=== PATIENT | female | born 1955 | race Caucasian/White ===

== ENCOUNTER 2020-11-04 11:19 | Outpatient (CLI) | payer OTHER, SELFPAY ==
--- NOTE | 2020-11-04 11:25 | MM_ITS ---
WS: [id number] BILATERAL SCREENING DIGITAL MAMMOGRAM WITH CAD HISTORY: HX OF LT BR CA COMPARISON: 02/01/2019 and 01/31/2018 Bilateral CC and MLO views submitted. Computer aided detection analyzed. Breast composition: The breasts are extremely dense, which lowers the sensitivity of mammography. No suspicious masses, microcalcifications or architectural distortion. Numerous calcifications and asymm etries throughout each breast. MM/[place] [id number] IMPRESSION: BI-RADS: 2-Benign FOLLOW UP: 1 Year Follow-up
== END 2020-11-04 11:20 | disposition home or self-care (01) ==
LOC: RADSHAW 11:23
PROVIDERS: PCP Family Medicine; Visit Provider Family Medicine
DX: Z85.3 Personal history of malignant neoplasm of breast (principal)
CPT/HCPCS: 77066

== ENCOUNTER 2020-11-20 07:50 | Outpatient (CLI) | payer OTHER, SELFPAY ==
--- NOTE | 2020-11-20 07:58 | US_ITS ---
WS: [id number] INDICATION: Cervical lymphadenopathy TECHNIQUE: Ultrasound neck soft tissue FINDINGS: Ultrasound soft tissue neck in the areas of concern. Bilateral cervical lymph nodes in the areas of concern. Lymph nodes have normal appearance and are not significantly enlarged. Normal prese rved fatty hilum. No other suspicious findings. US/US soft tissue head neck [id number] IMPRESSION: Normal bilateral cervical lymph nodes.
== END 2020-11-20 07:51 | disposition home or self-care (01) ==
LOC: US 07:51
PROVIDERS: PCP Family Medicine; Visit Provider Family Medicine
DX: R59.0 Localized enlarged lymph nodes (principal)
CPT/HCPCS: 76536

== ENCOUNTER 2021-01-27 10:38 | Outpatient (CLI) | payer OTHER, SELFPAY ==
--- NOTE | 2021-01-27 10:51 | XR_ITS ---
WS: [id number] Exam: XR elbow LT min 3V* [id number] Date/Time of Exam: 01/27/2021 10:51 AM Reason For Exam: LEFT ELBOW PAIN Findings: There are no fractures, soft tissue swelling, or calcifications. The elbow shows normal bony alignme nt. There is no irregularity of the bony architecture. XR/XR elbow LT min 3V* [id number] IMPRESSION: Negative elbow.
== END 2021-01-27 10:39 | disposition home or self-care (01) ==
LOC: RAD 10:44
PROVIDERS: PCP Family Medicine; Visit Provider Family Medicine
DX: M25.522 Pain in left elbow (principal)
CPT/HCPCS: 73080

== ENCOUNTER 2021-06-03 11:30 | Outpatient (RCR) | payer OTHER, SELFPAY | END 2021-06-04 23:59 | disposition home or self-care (01) | LOC: SOT 11:30 | PROVIDERS: PCP Family Medicine; Referring Provider Orthopaedic Surgery; Visit Provider Orthopaedic Surgery | DX: M77.12 Lateral epicondylitis, left elbow (principal) | CPT/HCPCS: 97110; 97165 ==

== ENCOUNTER 2021-06-05 06:00 | Outpatient (RCR) | payer OTHER, SELFPAY | END 2021-07-05 23:59 | disposition home or self-care (01) | LOC: SOT 06:00 | PROVIDERS: PCP Family Medicine; Referring Provider Orthopaedic Surgery; Visit Provider Orthopaedic Surgery | DX: M77.02 Medial epicondylitis, left elbow (principal) | CPT/HCPCS: 97034; 97035; 97110; 97140; 97530 ==

== ENCOUNTER 2021-07-06 06:00 | Outpatient (RCR) | payer OTHER, SELFPAY | END 2021-08-04 23:59 | disposition home or self-care (01) | LOC: SOT 06:00 | PROVIDERS: PCP Family Medicine; Referring Provider Orthopaedic Surgery; Visit Provider Orthopaedic Surgery | DX: M77.12 Lateral epicondylitis, left elbow (principal) | CPT/HCPCS: 97032; 97035; 97110; 97140; 97168 ==

== ENCOUNTER 2022-01-01 10:53 | Outpatient (CLI) | payer OTHER, SELFPAY ==
--- NOTE | 2022-01-01 11:05 | MM_ITS ---
WS: [id number] BILATERAL 3D TOMOSYNTHESIS DIGITAL DIAGNOSTIC MAMMOGRAPHY WITH CAD CLINICAL INFORMATION: HX OF BREAST CA HISTORY: History of Phylloides tumor. New lump LEFT breast. COMPARISON: November 04, 2020 TECHNIQUE: Bilateral CC, MLO, and ML views. FINDINGS: The breasts are composed of heterogeneous fibroglandular density, which can limit the detection of sm all underlying mass lesions. Punctate and lucent centered calcifications. Ovoid nodule deep to the pa lpable marker lower outer LEFT breast measuring 2.3 x 2.0 CM. Ultrasound is pending. ULTRASOUND BREAST LEFT TECHNIQUE: Ultrasound left breast focused area of concern. CLINICAL INFORMATION: HX OF BREAST CA FINDINGS: Solid hypoechoic lesion with vascularity at the 3:00 position 10 cm from the nipple corresponds to th e mammographic findings. Small amount of internal cystic change with marginal lobulations. This measu res 2.5 x 2.2 x 1.5 CM. Recommend further evaluation with ultrasound-guided biopsy. MM/[place] [id number] IMPRESSION: BI-RADS: 4-Suspicious Finding-Biopsy Should Be Considered FOLLOW UP: US Guided Biopsy Recommended Recommend ultrasound-guided biopsy nodule LEFT breast
--- NOTE | 2022-01-01 11:49 | US_ITS ---
WS: [id number] BILATERAL 3D TOMOSYNTHESIS DIGITAL DIAGNOSTIC MAMMOGRAPHY WITH CAD CLINICAL INFORMATION: HX OF BREAST CA HISTORY: History of Phylloides tumor. New lump LEFT breast. COMPARISON: November 04, 2020 TECHNIQUE: Bilateral CC, MLO, and ML views. FINDINGS: The breasts are composed of heterogeneous fibroglandular density, which can limit the detection of sm all underlying mass lesions. Punctate and lucent centered calcifications. Ovoid nodule deep to the pa lpable marker lower outer LEFT breast measuring 2.3 x 2.0 CM. Ultrasound is pending. ULTRASOUND BREAST LEFT TECHNIQUE: Ultrasound left breast focused area of concern. CLINICAL INFORMATION: HX OF BREAST CA FINDINGS: Solid hypoechoic lesion with vascularity at the 3:00 position 10 cm from the nipple corresponds to th e mammographic findings. Small amount of internal cystic change with marginal lobulations. This measu res 2.5 x 2.2 x 1.5 CM. Recommend further evaluation with ultrasound-guided biopsy. US/US breast LT limited* [id number] IMPRESSION: BI-RADS: 4-Suspicious Finding-Biopsy Should Be Considered FOLLOW UP: US Guided Biopsy Recommended Recommend ultrasound-guided biopsy nodule LEFT breast
== END 2022-01-01 10:54 | disposition home or self-care (01) ==
PROVIDERS: PCP Family Medicine; Visit Provider Family Medicine
DX: N63.20 Unspecified lump in the left breast, unspecified quadrant (principal); Z85.3 Personal history of malignant neoplasm of breast
CPT/HCPCS: 76642; 77062

== ENCOUNTER 2022-02-05 10:15 | Outpatient (CLI) | payer OTHER, SELFPAY ==
--- NOTE | 2022-02-05 10:19 | US_ITS ---
WS: [id number] ULTRASOUND-GUIDED LEFT BREAST BIOPSY CLINICAL INFORMATION: history of phyllodes tumore COMPARISON: None. FINDINGS: The procedure including risks, benefits, and complications were discussed with the patient who agreed to proceed. Using sterile technique patient was prepped and draped in the usual sterile fashion. Aft er 1% lidocaine utilizing real-time ultrasound guidance 5 14-gauge cores were obtained of the LEFT br east lesion at the 3 o'clock position 10 cm from the nipple. Subsequently a titanium clip was placed in the biopsy cavity. No immediate complications. Pathology demonstrates A. Breast, left breast mass , biopsy: - Poorly differentiated invasive ductal carcinoma. - Orantes Olivera grade 3 (score 8/9). - No evidence of in situ carcinoma (ductal or lobular). - Breast profile has been performed and will be reported separately. US/[place] [id number] IMPRESSION: 1. Uncomplicated ultrasound-guided LEFT breast biopsy. 2. The pathology demonstrates poorly differentiated invasive ductal carcinoma. 3. RECOMMEND BREAST SURGERY CONSULTATION. BI-RADS: 6-Known Biopsy-Proven Malignancy FOLLOW UP: Surgical Biopsy Recommended
[2022-02-11 10:00] LABS: Miscellaneous Test See Scanned Lab Rpt
== END 2022-02-05 10:16 | disposition home or self-care (01) ==
PROVIDERS: PCP Family Medicine; Visit Provider Surgery
DX: C50.912 Malignant neoplasm of unspecified site of left female breast (principal)
CPT/HCPCS: 19083; 88305; 88361; 88374

== ENCOUNTER 2022-02-24 11:57 | Oncology outpatient (recurring) (ONCR) | payer OTHER, SELFPAY | END 2022-03-04 23:59 | disposition home or self-care (01) | PROVIDERS: Absent Provider Radiology Radiation Oncology; PCP Family Medicine; Visit Provider Internal Medicine Hematology & Oncology | DX: C50.812 Malignant neoplasm of overlapping sites of left female breast (principal); Z17.0 Estrogen receptor positive status [ER+]; F32.A Depression, unspecified; E55.9 Vitamin D deficiency, unspecified; D50.9 Iron deficiency anemia, unspecified; D51.9 Vitamin B12 deficiency anemia, unspecified; Z79.899 Other long term (current) drug therapy ==

== ENCOUNTER 2022-03-22 07:29 | Day surgery (SDC) | payer OTHER, SELFPAY ==
[2022-03-19 10:07] VITALS: BMI 32.3
[2022-03-22] VITALS (8 sets, daily range): BP systolic 129–187; BP diastolic 73–99; PULSE 73–105; RESP 16–20; TEMP 36.1–37.1; O2SAT 92–99
--- NOTE | 2022-03-22 07:35 | W.PM.OPSFHP ---
Same Day Surgery H&P Indication for Procedure/HPI DATE OF PROCEDURE: March 22, 2022 CHIEF COMPLAINT/INDICATIONFOR SURGICAL PROCEDURE: left breast lumpectomy with SLNB PREOP DIAGNOSIS: Left breast cancer PLANNED PROCEDURE: Operation Date: 03/22/22 10:00 Proposed Procedures p left breast lumpectomy and sentinel lymph node biopsy [id number],C50.912,C50.919(Left) - Robbie Ge MD s Sentinal Lymph Node Biopsy(Left) - Robbie Ge MD Medications/Allergies* Home Medications Medication Instructions Recorded Confirmed Type citalopram 40 mg tablet 20 mg PO DAILY 12/23/20 03/19/22 History minocycline 50 mg capsule 50 mg PO BID 12/23/20 03/19/22 History mirtazapine 15 mg tablet 15 mg PO DAILY 12/23/20 03/19/22 History acetaminophen 650 mg 650 mg PO Q8H PRN 02/24/22 03/19/22 History tablet,extended release (Tylenol Arthritis Pain) calcium citrate 250 mg PO TID 02/24/22 03/19/22 History carboxymethylcellulose sodium 0.25 1 drp OPHTHALMIC (EYE) DAILY ea 02/24/22 03/19/22 History % eye drops in a dropperette (TheraTears) multivitamin (Daily Multi-Vitamin) 1 tab PO BID tab 02/24/22 03/19/22 History omeprazole 20 mg capsule,delayed 40 mg PO DAILY cap 02/24/22 03/19/22 History release vit C 250 mg-vit E 200 unit-zinc 1 tab PO BID tab 02/24/22 03/19/22 History 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 1 mg-lut-zeax chew tablet (ICaps AREDS2 (copper citrate)) vitamin B complex 1 tab PO DAILY 02/24/22 03/19/22 History Allergies/Adverse Reactions Allergy/AdvReac Type Severity Reaction Status Date / Time morphine Allergy very sick Verified 03/19/22 10:05 and throw up Pertinent History/Comorbid Conditions* Medical History (Updated 02/24/22 @ 17:08 by Reggie Lazo MD) Acne Depression Invasive ductal carcinoma of left breast Phyllodes tumor Surgical History (Updated 02/18/22 @ 08:13 by Robbie Ge MD) H/O: hysterectomy History of Achilles tendon repair History of colonoscopy History of gastric bypass History of total knee replacement Status post left breast lumpectomy Family History (Updated 02/24/22 @ 12:56 by Clara Zamudio LPN) Diabetes CAD (coronary artery disease) Father Clotting disorder Father Hyperlipidemia Father Psychiatric illness Chronic kidney disease (CKD) Cancer Mother Previous ovarian cancer Breast and bone cancer Hypertension Stroke Father Denies family history of Dementia Suicide Anesthesia complication Bleeding disorder Lung disease Social History Smoking and tobacco status: never smoked Alcohol intake: current Alcohol intake frequency: holidays/special occasions only Pertinent Exam Findings alert, oriented x 3, regular rate & rhythm and operative site marked Recommendations Surgery/Procedure today Coding Level of Care Code Acute Center Aisle Cashier for Radha Trujillo
--- NOTE | 2022-03-22 07:59 | NM_ITS ---
WS: [id number] NUCLEAR MEDICINE SENTINEL LYMPH NODE IMAGING, LEFT breast. HISTORY: LEFT BREAST CANCER COMPARISON: Prior mammogram 01/01/2022 TECHNIQUE: The patient was injected with 1.03 mCi of Technetium 99 ultra filtered sulfur colloid. Inj ection is intradermal in a periareolar location. Four aliquots are used. Injection complete at 8:19 AM. NM/NM lymphatics/lymph node [id number] IMPRESSION: Uncomplicated LEFT breast central lymph node injection.
--- NOTE | 2022-03-22 08:07 | P.ANESASSM_ITS ---
Pre-Anesthetic Assessment Height/Weight: Height 1.68 m Weight 90.718 kg Temp Pulse Resp BP Pulse Ox 98.7 F 73 16 129/73 97 03/22/22 07:57 03/22/22 07:57 03/22/22 07:57 03/22/22 07:57 03/22/22 07:57 Preop Diagnosis: Left breast cancer Operation Date: 03/22/22 10:00 Proposed Procedures p left breast lumpectomy and sentinel lymph node biopsy [id number],C50.912,C50.919(Left) - Robbie Ge MD s Sentinal Lymph Node Biopsy(Left) - Robbie eG MD Familial anesthetic complications: None Was Beta Twan taken within 24 hours: N/A Was Clonidine taken within 24 hours: Yes Last intake: Intake Last Liquid Date 03/21/22 Last Liquid Time 22:00 Last Solid Date 03/21/22 Last Solid Time 21:00 Social No alcohol and No tobacco Exam alert, oriented x 3, clear to auscultation bilaterally and regular rate & rhythm Airway Mallampati: Class II Dentition: full Pulmonary Sleep Apnea GI hx gastric bypass Anesthetic Plan ASA status: 3 Anesthesia: General Risk of > 500 ml blood loss (7ml/kg in children): No Medications/Allergies Home Medications Medication Instructions Recorded Confirmed Last Taken Type citalopram 40 mg tablet 20 mg PO DAILY 12/23/20 03/22/22 03/21/22 06:00 History minocycline 50 mg capsule 50 mg PO BID 12/23/20 03/22/22 03/21/22 22:00 History mirtazapine 15 mg tablet 15 mg PO DAILY 12/23/20 03/22/22 03/21/22 22:00 History acetaminophen 650 mg 650 mg PO Q8H PRN 02/24/22 03/22/22 Unknown History tablet,extended release (Tylenol Arthritis Pain) calcium citrate 250 mg PO TID 02/24/22 03/22/22 03/21/22 18:00 History carboxymethylcellulose sodium 0.25 1 drp OPHTHALMIC (EYE) DAILY ea 02/24/22 03/22/22 03/21/22 06:00 History % eye drops in a dropperette (TheraTears) multivitamin (Daily Multi-Vitamin) 1 tab PO BID tab 02/24/22 03/22/22 03/21/22 22:00 History omeprazole 20 mg capsule,delayed 40 mg PO DAILY cap 02/24/22 03/22/22 03/21/22 06:00 History release vit C 250 mg-vit E 200 unit-zinc 1 tab PO BID tab 02/24/22 03/22/22 03/21/22 23:00 History 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-endoscope technician 1 mg-lut-zeax chew tablet (ICaps AREDS2 (copper citrate)) vitamin B complex 1 tab PO DAILY 02/24/22 03/22/22 03/21/22 06:00 History Allergies Allergy/AdvReac Type Severity Reaction Status Date / Time morphine Allergy very sick Verified 03/22/22 07:49 and throw up [facility] Anesthesia Medical History Acne Depression Invasive ductal carcinoma of left breast Phyllodes tumor Surgical History H/O: hysterectomy History of Achilles tendon repair History of colonoscopy History of gastric bypass History of total knee replacement Status post left breast lumpectomy Family History Father Clotting disorder CAD (coronary artery disease) Hyperlipidemia Stroke Mother Cancer Previous ovarian cancer Breast and bone cancer Other Chronic kidney disease (CKD) Diabetes Hypertension Psychiatric illness Denies family history of Dementia Suicide Anesthesia complication Bleeding disorder Lung disease Social History Smoking and tobacco status: never smoked Alcohol intake: current Alcohol intake frequency: holidays/special occasions only Data Anesthesia Cardiac Studies: No Data to Display
--- NOTE | 2022-03-22 08:22 | PC.NURSE ---
LEFT BREAST SENTINEL NODE INJECTION OF 1.03 mCi Tc99m Filtered Sulfur Colloid injected by Dr Vail at 0819
[2022-03-22] MEDS: sodium chloride 0.9% 1,000 ML 30 ML IV (08:33)
[2022-03-22] MEDS: ceFAZolin 2,000 MG in sodium chloride 0.9% (plus) 50 ML 100 MG IV (10:30)
--- NOTE | 2022-03-22 11:19 | MM_ITS ---
WS: [id number] Surgical specimen, LEFT breast. HISTORY: Postoperative lumpectomy. Evaluate for surgical clip being present in the specimen. COMPARISON: Prior recent imaging studies of the LEFT breast are reviewed. The lumpectomy specimen is imaged. The postbiopsy clip is present in the specimen. MM/MM surgical specimen LT IMPRESSION: Lumpectomy specimen does contain the clip from the prior biopsy.
[2022-03-22] MEDS: isosulfan blue 10 mg/mL SDV 5mL SUBCUT (11:30)
[2022-03-22] MEDS: lidocaine 2% INJ 20 mL (11:36)
--- NOTE | 2022-03-22 12:11 | PM.OP ---
Operative Report Date of procedure: March 22, 2022 Pre-op diagnosis: Poorly differentiated invasive ductal carcinoma left breast History of LCIS Post-op diagnosis: Left breast mass at 3 o'clock position 10 cm from the nipple, biopsy-proven poorly differentiated invasive ductal carcinoma left breast 2 x 2 centimeter palpable mass left axilla Left axillary sentinel lymph node Procedure done: 1. Left breast lumpectomy with shave margins 2. Left axillary sentinel lymph node biopsy 3. Injection of 3 cc of 1% Lymphazurin 4. Excision of left axillary palpable mass Specimens removed/disposition: 1. Left breast mass 3 o'clock position short stitch superior long stitch lateral 2. 1 cm shave margins from the superior, inferior, medial, lateral, anterior and posterior aspect of the lumpectomy cavity with outer edge inked 3. Left axillary palpable mass 4. Left axillary sentinel lymph node Surgeon: Robbie Ge Anesthesia: General Condition: stable Disposition: PACU Procedure: The patient was taken to the operating room and intubated under general anesthesia after IV antibiotic had been administered. The left breast was prepped and draped in a manner . A curvilinear incision was made over the palpable mass at 3'o clock position, subcutaneous tissue was divided and skin flaps were raised medially and laterally.. The palpable mass was dissected free from the surrounding tissue. Using 2-0 silk suture, short stitch was placed superiorly and a long stitch was placed laterally.1 cm shave margins were obtained from the superior, inferior, medial, lateral, anterior and posterior aspect of the lumpectomy cavity and the outer edge was inked. The lumpectomy cavity was marked with titanium clips. The wound was irrigated with saline, hemostasis ensured with electrocautery and subcutaneous tissues approximated using 3-0 running Vicryl suture and skin was closed using running subcuticular 4-0 Monocryl sutures and Dermabond. A technetium sulfur colloid had been injected previously by the radiologist in the periareolar area. 3 mL of 1% Lymphazurin was injected in the subareolar location. The breast was massaged for 5 minutes and a 2 cm incision was made in the left axilla at the edge of the hairline. The subcutaneous tissue and clavipectoral fascia was divided with electrocautery and a 2 x 2 centimeter palpable mass was identified. The mass was dissected from the surrounding subcutaneous tissue and the vascular pedicle was divided after applying clips. Using gamma probe radioactive lymph nodes were identified lateral to the previously excised palpable mass and using electrocautery the lymph nodes were dissected free and sent to pathology Examination of the axilla did not reveal any other lymph nodes. The clavipectoral and subcutaneous tissue was approximated using running 3-0 Vicryl suture and skin was closed using running subcuticular 4-0 Monocryl suture and Dermabond. 0.25% Marcaine was infiltrated at both the surgical sites. Fluffs were used for pressure dressing. Patient was transferred to recovery room and stable condition The lumpectomy specimens were sent to mammography to obtain radiological confirmation of complete excision of the mammographic abnormality.
--- NOTE | 2022-03-22 12:39 | SUR.OPER ---
Dr Rashid pulled Ephedrine 50mg on pt, pixis did not record, wasted 50mg
--- NOTE | 2022-03-22 15:00 | ANE.PACU2 ---
Inpatient post-anesthesia follow up: Airway intact: Yes Vital signs: Temperature 97.6 F Pulse Rate 78 Respiratory Rate 17 Blood Pressure 176/99 Pulse Oximetry 99 Oxygen Delivery Me thod Room Air Oxygen Flow Rate 2 Fraction of Inspir ed Oxygen Hydration adequate: Yes Nausea and vomiting: No Pain level: 1 Mental status: Baseline
== END 2022-03-22 14:20 | disposition home or self-care (01) ==
PROVIDERS: PCP Family Medicine; Visit Provider Surgery
PROC: (CPT 19301; principal; 2022-03-22 10:00)
PROC: (CPT 19301; 2022-03-22 10:00)
DX: C50.912 Malignant neoplasm of unspecified site of left female breast (principal); G47.30 Sleep apnea, unspecified; Z98.84 Bariatric surgery status
CPT/HCPCS: 19301; 38500; 78195; 88307; A9541; J1100; J2250; J2405; J2704; J3010; J3490; J7030; Q9968

== ENCOUNTER 2022-04-14 11:30 | Oncology outpatient (recurring) (ONCR) | payer OTHER, SELFPAY ==
[2022-04-14 12:13] LABS: Basophils # 0.1 10^3/uL (0.0-0.1); Basophils % 1.2 %; Eosinophils # 0.4 10^3/uL (0.0-0.8); Eosinophils % 6.9 %; Hematocrit 38.8 % (37.0-47.0); Hemoglobin 12.7 g/dL (11.5-15.3); Lymphocytes # 1.6 10^3/uL (0.8-4.8); Lymphocytes % 27.2 %; Mean Corpuscular HGB Conc 32.7 g/dL (30.0-36.0); Mean Corpuscular Hemoglobin 29.9 pg (28.0-34.0); Mean Corpuscular Volume 91.3 fl (81-99); Mean Platelet Volume 10.3 fL (7.4-10.4); Monocytes # 0.3 10^3/uL (0.2-0.9); Monocytes % 5.7 %; Neutrophils # 3.42 10^3/uL (1.8-7.7); Neutrophils % 58.8 %; Nucleated Red Blood Cells % 0 %; Platelet Count 219 10^3/cmm (130-400); Red Blood Count 4.25 10^6/uL (4.1-5.3); Red Cell Distribution Width 12.1 % (12.1-15.1); White Blood Count 5.8 10^3/uL (4.0-10.0)
[2022-04-14 12:38] LABS: Alanine Aminotransferase 19 U/L (0-33); Albumin Level 4.1 g/dL (3.5-5.2); Alkaline Phosphatase 122 IU/L (35-105); Anion Gap 12.4 (5-19); Aspartate Amino Transferase 25 U/L (0-32); Blood Urea Nitrogen 27 mg/dL (8-23); Calcium 9.2 mg/dL (8.5-10.5); Carbon Dioxide 28 mmol/L (22-29); Chloride 106 mmol/L (98-107); Glomerular Filtration Rate 72.2 mL/min (90-130); Glucose 100 mg/dL (65-115); Osmolality Calculated 299 mOsm/kg (285-295); Potassium 4.4 mmol/L (3.5-5.1); Sodium 142 mmol/L (136-145); Total Bilirubin 0.3 mg/dL (0.15-1.2); Total Protein 6.1 g/dL (6.6-8.7)
== END 2022-05-05 23:59 | disposition home or self-care (01) ==
PROVIDERS: Absent Provider Radiology Radiation Oncology; PCP Family Medicine; Visit Provider Internal Medicine Hematology & Oncology
DX: C50.919 Malignant neoplasm of unspecified site of unspecified female breast (principal)
CPT/HCPCS: 36415; 80053; 85025

== ENCOUNTER → 2022-05-12 13:59 | Outpatient (BNVA) | payer MEDICARE, OTHER, SELFPAY | PROVIDERS: PCP Family Medicine; Visit Provider Surgery | DX: C50.912 Malignant neoplasm of unspecified site of left female breast (principal) | CPT/HCPCS: 99213 ==

== ENCOUNTER 2022-05-19 10:00 | Oncology outpatient (recurring) (ONCR) | payer MEDICARE, OTHER, SELFPAY | END 2022-06-04 23:59 | disposition home or self-care (01) | PROVIDERS: Absent Provider Radiology Radiation Oncology; PCP Family Medicine; Visit Provider Internal Medicine Hematology & Oncology | DX: Z53.9 Procedure and treatment not carried out, unspecified reason (principal) | CPT/HCPCS: 36415; 80053; 85025; 99214 ==

== ENCOUNTER 2022-06-03 06:16 | Day surgery (SDC) | payer MEDICARE, OTHER, SELFPAY ==
--- NOTE | 2022-06-03 | SCC_ITS ---
Procedure done: Mediport insertion 4.1 seconds of fluoroscopic guidance, for a cumulative dose of 0.58 mGy, was provided to Dr. Whatley by the radiology department. C-arm images of the chest were saved for the patient's permanent record. [facility]
--- NOTE | 2022-06-03 06:30 | SC_ITS ---
WS: [id number] Exam: C-arm FL for CVA [id number] Date/Time of Exam: 06/03/2022 6:30 AM Reason For Exam: mediport 2 anterior posterior C-arm images of the right upper chest are submitted for evaluation. A right subclavian MediPort has been placed and appears to end in the lower one third of the SVC in g ood position. The visualized right lung is fully expanded. No other significant finding on this limit ed series.
--- NOTE | 2022-06-03 06:30 | XR_ITS ---
WS: [id number] Exam: XR chest 1V portable [id number] Date/Time of Exam: 06/03/2022 8:59 AM Reason For Exam: postop mediport A right subclavian port appears to end at the region of the cavoatrial junction in satisfactory posit ion. The lungs are fully expanded. Mild areas of plaque atelectasis. No acute infiltrates. Normal car diomediastinal silhouette. Unremarkable bony elements. Surgical clips along the left axilla. XR/XR chest 1V portable [id number] IMPRESSION: 1. Right-sided subclavian port appearing to end in the region of the cavoatrial junction. 2. No acute process noted.
[2022-06-03 06:55] VITALS: BP 155/89; PULSE 67; RESP 18; TEMP 37.2; O2SAT 99
[2022-06-03] MEDS: sodium chloride 0.9% 1,000 ML 30 ML IV (06:55)
--- NOTE | 2022-06-03 07:15 | ANES.PREANE2 ---
Pre-Anesthetic Assessment Height/Weight: Height 1.68 m Weight 90.718 kg Temp Pulse Resp BP Pulse Ox O2 Del Method 98.9 F 67 18 155/89 99 06/03/22 06:55 06/03/22 06:55 06/03/22 06:55 06/03/22 06:55 06/03/22 06:55 06/03/22 06:55 Preop Diagnosis: Left breast cancer Operation Date: 06/03/22 07:40 Proposed Procedures p Portacath Placement 79483,C50.912,C50.919(Not Applicable) - Nicolás Whatley DO Familial anesthetic complications: None Was Beta Twan taken within 24 hours: N/A Was Clonidine taken within 24 hours: N/A Last intake: Intake Last Liquid Date 06/02/22 Last Liquid Time 22:00 Last Solid Date 06/02/22 Last Solid Time 22:00 Social No alcohol and No tobacco Exam alert, oriented x 3, clear to auscultation bilaterally and regular rate & rhythm Airway Mallampati: Class II Dentition: full Pulmonary Sleep Apnea GI gastric bypass Anesthetic Plan ASA status: 4 Anesthesia: MAC Risk of > 500 ml blood loss (7ml/kg in children): No Other Pertinent Information Ductal carcinoma Medications/Allergies Home Medications Medication Instructions Recorded Confirmed Last Taken Type citalopram 40 mg tablet 20 mg PO DAILY 12/23/20 06/03/22 06/03/22 05:30 History minocycline 50 mg capsule 50 mg PO BID 12/23/20 06/03/22 06/03/22 05:30 History mirtazapine 15 mg tablet 15 mg PO DAILY 12/23/20 06/03/22 06/02/22 History acetaminophen 650 mg 650 mg PO Q8H PRN Pain 02/24/22 06/02/22 Unknown History tablet,extended release (Tylenol Arthritis Pain) calcium citrate 250 mg PO TID 02/24/22 06/03/22 06/02/22 History carboxymethylcellulose sodium 0.25 1 drp ophthalmic (eye) DAILY 02/24/22 06/03/22 06/02/22 History % eye drops in a dropperette (TheraTears) multivitamin (Daily Multi-Vitamin 1 tab PO BID 02/24/22 06/03/22 06/02/22 History tablet) omeprazole 20 mg capsule,delayed 40 mg PO DAILY 02/24/22 06/03/22 06/03/22 05:30 History release vit C 250 mg-vit E 200 unit-zinc 1 tab PO BID 02/24/22 06/03/22 06/02/22 History 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 repairer 1 mg-lut-zeax chew tablet (ICaps AREDS2 (copper citrate)) vitamin B complex 1 tab PO DAILY 02/24/22 06/03/22 06/02/22 History dexamethasone 4 mg tablet 8 mg PO BID #12 tabs 05/18/22 06/03/22 06/02/22 Rx Allergies Allergy/AdvReac Type Severity Reaction Status Date / Time morphine Allergy very sick Verified 05/12/22 14:38 and throw up Current Medications Generic Name Dose Route Start Last Admin Trade Name Freq PRN Reason Stop Dose Admin Sodium Chloride 1,000 mls @ 30 mls/hr 06/03/22 06:30 06/03/22 06:55 Sodium Chloride 0.9% IV 06/04/22 06:29 30 mls/hr .Q24H ZEFERINO Administration PFSH Anesthesia Medical History Acne Bunion of right foot Bunion, left foot Chronic kidney disease Depression Invasive ductal carcinoma of left breast Phyllodes tumor Trigger finger of right hand Surgical History H/O: hysterectomy History of Achilles tendon repair History of bunionectomy 1971 and 1974 History of colonoscopy History of gastric bypass History of tonsillectomy and adenoidectomy 1960 History of total knee replacement Status post left breast lumpectomy Family History Father Clotting disorder CAD (coronary artery disease) Hyperlipidemia Stroke Mother Cancer Previous ovarian cancer Breast and bone cancer Other Chronic kidney disease (CKD) Diabetes Hypertension Psychiatric illness Denies family history of Dementia Suicide Anesthesia complication Bleeding disorder Lung disease Social History Smoking and tobacco status: never smoked Alcohol intake: current Alcohol intake frequency: holidays/special occasions only Data Anesthesia Cardiac Studies: No Data to Display
--- NOTE | 2022-06-03 07:41 | W.PM.OPSUD ---
Surgery/Procedure H&P Update DATE OF PROCEDURE: June 03, 2022 DATE H&P PERFORMED: 05/12/22 PREOP DIAGNOSIS: Left breast cancer PLANNED PROCEDURE: Operation Date: 06/03/22 07:40 Proposed Procedures p Portacath Placement [id number],C50.912,C50.919(Not Applicable) - Nicolás Whatley DO
[2022-06-03] MEDS: ceFAZolin 2,000 MG in sodium chloride 0.9% (plus) 50 ML 100 MG IV (08:04)
[2022-06-03] MEDS: heparin, porcine 1,000 unit/mL INJ 10 mL 10000 UNIT INJECTION (08:35)
--- NOTE | 2022-06-03 08:50 | PM.OP ---
Operative Report Date of procedure: June 03, 2022 Pre-op diagnosis: Preop Diagnosis Left breast cancer Post-op diagnosis: same Procedure done: Mediport insertion Implants: PowerPort Surgeon: Dr. Nicolás Whatley, DO Anesthesia: MAC Estimated blood loss (mL): 5 Complications: None apparent Brief History: This is a 67-year-old female with left breast cancer. Mediport insertion is indicated. The risks and benefits were explained and documented. Procedure: Patient was taken to the operating room and placed supine on the operating room table. All bony prominences were padded. She was given IV sedation and monitored throughout the case by the anesthesia personnel. SCDs were placed and turned on. The arms were tucked to the side. Patient received Ancef 2 g preoperatively IV. The bilateral chest wall was prepped and draped in usual sterile fashion using chlorhexidine base prep. Sterile drapes were applied. We did procedure pause prior to beginning. An 18 gauge needle was placed in the right subclavian vein. Dark, nonpulsatile blood was aspirated. A guidewire was placed through the needle centrally toward the atrial/vena caval junction. Fluoroscopy visualized good placement. The needle was removed and the guidewire was clipped to the drape with a hemostat. Further local anesthetic was infiltrated in the soft tissues of the right/left chest wall and a #15 blade was used to make a horizontal skin incision. A subcutaneous Mediport pocket was created using Bovie cautery, dissecting down through the skin and subcutaneous tissues. Meticulous hemostasis was achieved. The Mediport was sutured in position using 3-0 vicryl suture x2 stitches. A #15 blade was used to make a small skin jordi around the guidewire insertion area. The Mediport tubing was tunneled through the subcutaneous tissues up to the needle insertion location. A dilator with a peel-away sheath was placed over the guidewire and placed centrally. After measuring with fluoroscopy, the Mediport tubing was cut to length so that the tip would end at the atrial/vena caval junction. The inner cannula and the guidewire were removed, leaving the dilator sheath in place. The Mediport was flushed. The tip of the catheter was inserted through the peel-away sheath and the peel-away sheath removed in the standard fashion. The Mediport was accessed with a straight Wise needle and dark, nonpulsatile blood was aspirated and flushed using heparinized saline to hep-lock the Mediport. Final fluoroscopy visualization showed no kink in the catheter and the tip of the Mediport tubing near the atrial/vena caval junction. Both skin incisions were thoroughly irrigated and suctioned dry. Meticulous hemostasis noted. The Mediport incision was closed using interrupted 3-0 Vicryl suture for the deep dermal layer and 4-0 Vicryl run to close the skin edge. The right subclavian insertion site incision was closed with a single subcuticular stitch. Skin glue was applied as a topical dressing. This was allowed to dry. Patient was awakened from anesthesia and transferred via her cart to the recovery room in stable condition. All needle, sponge, and instrument counts were correct per the operating personnel x2 counts.
[2022-06-03 08:54] VITALS: BP 145/66; PULSE 116; RESP 12; TEMP 36.5; O2SAT 97
[2022-06-03 08:59] VITALS: BP 125/68; PULSE 104; RESP 14; O2SAT 97
[2022-06-03 09:04] VITALS: BP 159/87; PULSE 104; RESP 16; TEMP 36.7; O2SAT 98
[2022-06-03 09:12] VITALS: BP 144/92; PULSE 95; RESP 16; TEMP 36.8; O2SAT 98
[2022-06-03 09:30] VITALS: BP 152/89; PULSE 92; RESP 16; O2SAT 96
== END 2022-06-03 10:03 | disposition home or self-care (01) ==
PROVIDERS: PCP Family Medicine; Visit Provider Surgery
PROC: (CPT 36561; principal; 2022-06-03 07:40)
DX: C50.912 Malignant neoplasm of unspecified site of left female breast (principal); G47.30 Sleep apnea, unspecified; Z98.84 Bariatric surgery status; N18.9 Chronic kidney disease, unspecified
CPT/HCPCS: 36561; 71045; 76000; 77001; C1788; J1644; J2704; J3010; J3490; J7030

== ENCOUNTER 2022-06-28 09:30 | Oncology outpatient (recurring) (ONCR) | payer MEDICARE, OTHER, SELFPAY ==
[2022-06-07 10:05] LABS: Basophils % 0.3 %; Hematocrit 39.1 % (37.0-47.0); Hemoglobin 12.7 g/dL (11.5-15.3); Lymphocytes # 0.9 10^3/uL (0.8-4.8); Lymphocytes % 8.3 %; Mean Corpuscular HGB Conc 32.5 g/dL (30.0-36.0); Mean Corpuscular Hemoglobin 29.7 pg (28.0-34.0); Mean Corpuscular Volume 91.6 fl (81-99); Mean Platelet Volume 10.2 fL (7.4-10.4); Monocytes # 0.2 10^3/uL (0.2-0.9); Monocytes % 1.6 %; Neutrophils # 9.83 10^3/uL (1.8-7.7); Neutrophils % 89.2 %; Nucleated Red Blood Cells % 0 %; Platelet Count 238 10^3/cmm (130-400); Red Blood Count 4.27 10^6/uL (4.1-5.3); Red Cell Distribution Width 11.8 % (12.1-15.1)
[2022-06-07 10:15] LABS: Alanine Aminotransferase 21 U/L (0-33); Albumin Level 4.1 g/dL (3.5-5.2); Alkaline Phosphatase 121 U/L (35-105); Anion Gap 17.1 (5-19); Aspartate Amino Transferase 27 U/L (0-32); Blood Urea Nitrogen 23 mg/dL (8-23); Calcium 9.4 mg/dL (8.5-10.5); Carbon Dioxide 24 mmol/L (22-29); Chloride 102 mmol/L (98-107); Globulin 2.2 g/dL (1.3-4.6); Glomerular Filtration Rate 62.8 mL/min (90-130); Glucose 229 mg/dL (65-115); Osmolality Calculated 299 mOsm/kg (285-295); Potassium 4.1 mmol/L (3.5-5.1); Sodium 139 mmol/L (136-145); Total Bilirubin 0.4 mg/dL (0.15-1.2); Total Protein 6.3 g/dL (6.6-8.7)
[2022-06-07] MEDS: famotidine 20 mg/2 mL INJ IVP (12:51)
[2022-06-07] MEDS: palonosetron 0.25 mg/5 mL SDV IVP (12:51)
[2022-06-07] MEDS: sodium chloride 0.9% 250 ML 100 ML IV (12:51)
[2022-06-07] MEDS: OLANZapine 5 mg TABLET PO (12:52)
[2022-06-07] MEDS: diphenhydrAMINE 50 mg/mL SDV 1mL 25 MG IVP (12:53)
[2022-06-07] MEDS: fosaprepitant 150 MG in sodium chloride 0.9% 150 ML 300 MG IV (13:06)
[2022-06-07] MEDS: cyclophosphamide 1,000 MG, cyclophosphamide 200 MG in sodium chloride 0.9% 500 ML 500 MG IV (14:57)
[2022-06-07] MEDS: pegfilgrastim 6 mg/0.6 mL Kit (onpro) SUBCUT (16:40)
[2022-06-07 16:41] VITALS: BP 154/87; PULSE 55; RESP 16; TEMP 36.6; O2SAT 98
[2022-06-14 15:04] LABS: Basophils % 0.4 %; Eosinophils # 0.1 10^3/uL (0.0-0.8); Eosinophils % 1.6 %; Hematocrit 35.7 % (37.0-47.0); Hemoglobin 11.5 g/dL (11.5-15.3); Lymphocytes # 1.8 10^3/uL (0.8-4.8); Lymphocytes % 25.8 %; Mean Corpuscular HGB Conc 32.2 g/dL (30.0-36.0); Mean Corpuscular Hemoglobin 29.7 pg (28.0-34.0); Mean Corpuscular Volume 92.2 fl (81-99); Mean Platelet Volume 10.3 fL (7.4-10.4); Monocytes # 1.2 10^3/uL (0.2-0.9); Monocytes % 17.9 %; Neutrophils # 2.93 10^3/uL (1.8-7.7); Neutrophils % 42.5 %; Nucleated Red Blood Cells % 0.6 %; Platelet Count 163 10^3/cmm (130-400); Red Blood Count 3.87 10^6/uL (4.1-5.3); Red Cell Distribution Width 11.9 % (12.1-15.1); White Blood Count 6.9 10^3/uL (4.0-10.0)
[2022-06-14 15:27] LABS: Alanine Aminotransferase 17 U/L (0-33); Albumin Level 3.4 g/dL (3.5-5.2); Alkaline Phosphatase 105 U/L (35-105); Anion Gap 11.2 (5-19); Aspartate Amino Transferase 23 U/L (0-32); Blood Urea Nitrogen 19 mg/dL (8-23); Calcium 8.6 mg/dL (8.5-10.5); Carbon Dioxide 29 mmol/L (22-29); Chloride 102 mmol/L (98-107); Globulin 2.2 g/dL (1.3-4.6); Glucose 91 mg/dL (65-115); Osmolality Calculated 288 mOsm/kg (285-295); Potassium 4.2 mmol/L (3.5-5.1); Sodium 138 mmol/L (136-145); Total Bilirubin 0.3 mg/dL (0.15-1.2); Total Protein 5.6 g/dL (6.6-8.7)
[2022-06-14 15:48] LABS: Slide Review Slide Review Perform
[2022-06-28 10:06] LABS: Basophils % 0.2 %; Hemoglobin 12.1 g/dL (11.5-15.3); Lymphocytes # 0.9 10^3/uL (0.8-4.8); Mean Corpuscular HGB Conc 33.6 g/dL (30.0-36.0); Mean Corpuscular Hemoglobin 30.2 pg (28.0-34.0); Mean Corpuscular Volume 89.8 fl (81-99); Mean Platelet Volume 10.5 fL (7.4-10.4); Monocytes # 0.1 10^3/uL (0.2-0.9); Monocytes % 1.1 %; Neutrophils # 11.92 10^3/uL (1.8-7.7); Neutrophils % 90.6 %; Nucleated Red Blood Cells % 0 %; Platelet Count 355 10^3/cmm (130-400); Red Blood Count 4.01 10^6/uL (4.1-5.3); Red Cell Distribution Width 12.2 % (12.1-15.1); White Blood Count 13.2 10^3/uL (4.0-10.0)
[2022-06-28 10:26] LABS: Alanine Aminotransferase 12 U/L (0-33); Albumin Level 4.3 g/dL (3.5-5.2); Alkaline Phosphatase 137 U/L (35-105); Anion Gap 19.4 (5-19); Aspartate Amino Transferase 32 U/L (0-32); Blood Urea Nitrogen 26 mg/dL (8-23); Calcium 9.3 mg/dL (8.5-10.5); Carbon Dioxide 23 mmol/L (22-29); Chloride 103 mmol/L (98-107); Globulin 2.3 g/dL (1.3-4.6); Glomerular Filtration Rate 62.8 mL/min (90-130); Glucose 182 mg/dL (65-115); Osmolality Calculated 301 mOsm/kg (285-295); Potassium 4.4 mmol/L (3.5-5.1); Sodium 141 mmol/L (136-145); Total Bilirubin 0.4 mg/dL (0.15-1.2); Total Protein 6.6 g/dL (6.6-8.7)
[2022-06-28] MEDS: sodium chloride 0.9% 250 ML 100 ML IV (12:04)
[2022-06-28] MEDS: OLANZapine 5 mg TABLET PO (12:05)
[2022-06-28] MEDS: famotidine 20 mg/2 mL INJ IVP (12:05)
[2022-06-28] MEDS: diphenhydrAMINE 50 mg/mL SDV 1mL 25 MG IVP (12:05)
[2022-06-28] MEDS: palonosetron 0.25 mg/5 mL SDV IVP (12:05)
[2022-06-28] MEDS: fosaprepitant 150 MG in sodium chloride 0.9% 150 ML 300 MG IV (12:28)
[2022-06-28] MEDS: cyclophosphamide 1,000 MG, cyclophosphamide 200 MG in sodium chloride 0.9% 500 ML 500 MG IV (14:10)
[2022-06-28] MEDS: pegfilgrastim 6 mg/0.6 mL Kit (onpro) SUBCUT (15:30)
[2022-06-28 15:54] VITALS: BP 140/81; PULSE 62; RESP 17; TEMP 36.2; O2SAT 97
== END 2022-06-29 09:15 | disposition home or self-care (01) ==
PROVIDERS: Nurse Practitioner; Absent Provider Radiology Radiation Oncology; PCP Family Medicine; Visit Provider Internal Medicine Hematology & Oncology
DX: Z51.12 Encounter for antineoplastic immunotherapy; Z51.11 Encounter for antineoplastic chemotherapy; C50.812 Malignant neoplasm of overlapping sites of left female breast; Z17.0 Estrogen receptor positive status [ER+]; Z95.828 Presence of other vascular implants and grafts; Z92.3 Personal history of irradiation; Z79.899 Other long term (current) drug therapy
CPT/HCPCS: 80053; 85025; 96367; 96375; 96377; 96401; 96413; 96415; 96417; 99214; 99215; J1100; J1200; J1453; J2469; J2506; J3490; J7040; J7050; J9070; J9171

== ENCOUNTER 2022-07-28 11:15 | Oncology outpatient (recurring) (ONCR) | payer MEDICARE, OTHER, SELFPAY ==
[2022-07-12 13:27] LABS: Basophils # 0.2 10^3/uL (0.0-0.1); Basophils % 1.6 %; Eosinophils # 0.1 10^3/uL (0.0-0.8); Eosinophils % 0.7 %; Hematocrit 32.7 % (37.0-47.0); Hemoglobin 10.4 g/dL (11.5-15.3); Lymphocytes % 8.6 %; Mean Corpuscular HGB Conc 31.8 g/dL (30.0-36.0); Mean Corpuscular Hemoglobin 29.6 pg (28.0-34.0); Mean Corpuscular Volume 93.2 fl (81-99); Mean Platelet Volume 9.6 fL (7.4-10.4); Monocytes # 0.6 10^3/uL (0.2-0.9); Monocytes % 4.8 %; Neutrophils # 9.14 10^3/uL (1.8-7.7); Neutrophils % 80.6 %; Nucleated Red Blood Cells % 0 %; Platelet Count 133 10^3/cmm (130-400); Red Blood Count 3.51 10^6/uL (4.1-5.3); Red Cell Distribution Width 12.9 % (12.1-15.1); White Blood Count 11.4 10^3/uL (4.0-10.0)
[2022-07-12 13:51] LABS: Alanine Aminotransferase 11 U/L (0-33); Albumin Level 3.5 g/dL (3.5-5.2); Alkaline Phosphatase 141 U/L (35-105); Anion Gap 12.9 (5-19); Aspartate Amino Transferase 15 U/L (0-32); Blood Urea Nitrogen 19 mg/dL (8-23); Calcium 8.8 mg/dL (8.5-10.5); Carbon Dioxide 26 mmol/L (22-29); Chloride 103 mmol/L (98-107); Globulin 2.2 g/dL (1.3-4.6); Glucose 111 mg/dL (65-115); Osmolality Calculated 289 mOsm/kg (285-295); Potassium 3.9 mmol/L (3.5-5.1); Sodium 138 mmol/L (136-145); Total Bilirubin 0.3 mg/dL (0.15-1.2); Total Protein 5.7 g/dL (6.6-8.7)
[2022-07-19 09:20] LABS: Basophils % 0.1 %; Hematocrit 33.1 % (37.0-47.0); Hemoglobin 10.7 g/dL (11.5-15.3); Lymphocytes # 0.8 10^3/uL (0.8-4.8); Lymphocytes % 9.8 %; Mean Corpuscular HGB Conc 32.3 g/dL (30.0-36.0); Mean Corpuscular Hemoglobin 29.7 pg (28.0-34.0); Mean Corpuscular Volume 91.9 fl (81-99); Mean Platelet Volume 9.3 fL (7.4-10.4); Monocytes # 0.1 10^3/uL (0.2-0.9); Monocytes % 1.5 %; Neutrophils # 7.09 10^3/uL (1.8-7.7); Nucleated Red Blood Cells % 0 %; Platelet Count 283 10^3/cmm (130-400); Red Cell Distribution Width 13.2 % (12.1-15.1); White Blood Count 8.1 10^3/uL (4.0-10.0)
[2022-07-19 09:45] LABS: Alanine Aminotransferase 11 U/L (0-33); Albumin Level 3.9 g/dL (3.5-5.2); Alkaline Phosphatase 126 U/L (35-105); Anion Gap 17.2 (5-19); Aspartate Amino Transferase 18 U/L (0-32); Blood Urea Nitrogen 22 mg/dL (8-23); Calcium 9.5 mg/dL (8.5-10.5); Carbon Dioxide 25 mmol/L (22-29); Chloride 104 mmol/L (98-107); Globulin 2.3 g/dL (1.3-4.6); Glucose 175 mg/dL (65-115); Osmolality Calculated 302 mOsm/kg (285-295); Potassium 4.2 mmol/L (3.5-5.1); Sodium 142 mmol/L (136-145); Total Bilirubin 0.2 mg/dL (0.15-1.2); Total Protein 6.2 g/dL (6.6-8.7)
[2022-07-19] MEDS: sodium chloride 0.9% 250 ML 100 ML IV (11:28)
[2022-07-19] MEDS: OLANZapine 5 mg TABLET PO (11:28)
[2022-07-19] MEDS: famotidine 20 mg/2 mL INJ IVP (11:29)
[2022-07-19] MEDS: diphenhydrAMINE 50 mg/mL SDV 1mL 25 MG IVP (11:29)
[2022-07-19] MEDS: fosaprepitant 150 MG in sodium chloride 0.9% 150 ML 300 MG IV (11:34)
[2022-07-19] MEDS: palonosetron 0.25 mg/5 mL SDV IVP (12:15)
[2022-07-19] MEDS: cyclophosphamide 1,000 MG, cyclophosphamide 200 MG in sodium chloride 0.9% 500 ML 500 MG IV (13:40)
[2022-07-19] MEDS: pegfilgrastim 6 mg/0.6 mL Kit (onpro) SUBCUT (14:54)
[2022-07-19 15:03] VITALS: BP 142/77; PULSE 75; TEMP 36.6; O2SAT 97
[2022-07-28 11:57] VITALS: BP 115/67; PULSE 72; RESP 18; TEMP 36.4; O2SAT 97
[2022-07-28 12:06] LABS: Basophils # 0.1 10^3/uL (0.0-0.1); Basophils % 0.4 %; Eosinophils # 0.1 10^3/uL (0.0-0.8); Eosinophils % 0.9 %; Hematocrit 32.2 % (37.0-47.0); Hemoglobin 10.1 g/dL (11.5-15.3); Lymphocytes # 1.9 10^3/uL (0.8-4.8); Lymphocytes % 11.6 %; Mean Corpuscular HGB Conc 31.4 g/dL (30.0-36.0); Mean Corpuscular Volume 95.5 fl (81-99); Mean Platelet Volume 9.6 fL (7.4-10.4); Monocytes # 1.8 10^3/uL (0.2-0.9); Monocytes % 10.8 %; Neutrophils # 7.76 10^3/uL (1.8-7.7); Neutrophils % 47.4 %; Nucleated Red Blood Cells # 0.3 /100WBC; Nucleated Red Blood Cells % 1.6 %; Platelet Count 212 10^3/cmm (130-400); Red Blood Count 3.37 10^6/uL (4.1-5.3); Red Cell Distribution Width 13.7 % (12.1-15.1); White Blood Count 16.4 10^3/uL (4.0-10.0)
[2022-07-28 12:07] LABS: Slide Review Slide Review Perform
[2022-07-28 12:23] LABS: Alanine Aminotransferase 17 U/L (0-33); Albumin Level 3.5 g/dL (3.5-5.2); Alkaline Phosphatase 127 U/L (35-105); Aspartate Amino Transferase 28 U/L (0-32); Blood Urea Nitrogen 19 mg/dL (8-23); Calcium 8.9 mg/dL (8.5-10.5); Carbon Dioxide 28 mmol/L (22-29); Chloride 105 mmol/L (98-107); Globulin 1.8 g/dL (1.3-4.6); Glucose 82 mg/dL (65-115); Osmolality Calculated 293 mOsm/kg (285-295); Sodium 141 mmol/L (136-145); Total Bilirubin 0.2 mg/dL (0.15-1.2); Total Protein 5.3 g/dL (6.6-8.7)
== END 2022-08-04 23:59 | disposition home or self-care (01) ==
PROVIDERS: Nurse Practitioner; PCP Family Medicine; Visit Provider Internal Medicine Hematology & Oncology
DX: C50.812 Malignant neoplasm of overlapping sites of left female breast
CPT/HCPCS: 36591; 80053; 85025; 96367; 96372; 96375; 96377; 96413; 96417; 99214; J1100; J1200; J1453; J2469; J2506; J3490; J7040; J7050; J9070; J9171

== ENCOUNTER 2022-09-01 13:01 | Oncology outpatient (recurring) (ONCR) | payer MEDICARE, OTHER, SELFPAY ==
[2022-08-09 08:33] LABS: Basophils % 0.3 %; Eosinophils % 0.1 %; Hematocrit 33.9 % (37.0-47.0); Hemoglobin 10.9 g/dL (11.5-15.3); Lymphocytes # 0.7 10^3/uL (0.8-4.8); Lymphocytes % 9.8 %; Mean Corpuscular HGB Conc 32.2 g/dL (30.0-36.0); Mean Corpuscular Hemoglobin 30.4 pg (28.0-34.0); Mean Corpuscular Volume 94.7 fl (81-99); Mean Platelet Volume 10.1 fL (7.4-10.4); Monocytes # 0.1 10^3/uL (0.2-0.9); Monocytes % 1.6 %; Neutrophils % 87.7 %; Nucleated Red Blood Cells % 0 %; Platelet Count 212 10^3/cmm (130-400); Red Blood Count 3.58 10^6/uL (4.1-5.3); Red Cell Distribution Width 14.6 % (12.1-15.1); White Blood Count 7.5 10^3/uL (4.0-10.0)
[2022-08-09 08:49] LABS: Alanine Aminotransferase 20 U/L (0-33); Alkaline Phosphatase 105 U/L (35-105); Anion Gap 17.1 (5-19); Aspartate Amino Transferase 19 U/L (0-32); Blood Urea Nitrogen 17 mg/dL (8-23); Calcium 9.4 mg/dL (8.5-10.5); Carbon Dioxide 23 mmol/L (22-29); Chloride 105 mmol/L (98-107); Globulin 1.9 g/dL (1.3-4.6); Glucose 188 mg/dL (65-115); Osmolality Calculated 299 mOsm/kg (285-295); Potassium 4.1 mmol/L (3.5-5.1); Sodium 141 mmol/L (136-145); Total Bilirubin 0.3 mg/dL (0.15-1.2); Total Protein 5.9 g/dL (6.6-8.7)
[2022-08-09] MEDS: sodium chloride 0.9% 250 ML 100 ML IV (11:45)
[2022-08-09] MEDS: OLANZapine 5 mg TABLET PO (11:45)
[2022-08-09] MEDS: palonosetron 0.25 mg/5 mL SDV IVP (11:47)
[2022-08-09] MEDS: famotidine 20 mg/2 mL INJ IVP (11:48)
[2022-08-09] MEDS: diphenhydrAMINE 50 mg/mL SDV 1mL 25 MG IVP (11:49)
[2022-08-09] MEDS: fosaprepitant 150 MG in sodium chloride 0.9% 150 ML 300 MG IV (11:52)
[2022-08-09] MEDS: cyclophosphamide 1,000 MG, cyclophosphamide 200 MG in sodium chloride 0.9% 500 ML 500 MG IV (13:53)
[2022-08-09 15:17] VITALS: BP 146/80; PULSE 58; RESP 16; TEMP 36.3; O2SAT 95
[2022-08-09] MEDS: pegfilgrastim 6 mg/0.6 mL Kit (onpro) SUBCUT (15:20)
[2022-08-16 09:00] LABS: Hematocrit 32.5 % (37.0-47.0); Hemoglobin 10.2 g/dL (11.5-15.3); Mean Corpuscular HGB Conc 31.4 g/dL (30.0-36.0); Mean Corpuscular Hemoglobin 30.3 pg (28.0-34.0); Mean Corpuscular Volume 96.4 fl (81-99); Platelet Count 114 10^3/cmm (130-400); Red Blood Count 3.37 10^6/uL (4.1-5.3); Red Cell Distribution Width 14.1 % (12.1-15.1)
[2022-08-16 09:13] LABS: Alanine Aminotransferase 11 U/L (0-33); Albumin Level 3.7 g/dL (3.5-5.2); Alkaline Phosphatase 117 U/L (35-105); Anion Gap 11.1 (5-19); Aspartate Amino Transferase 14 U/L (0-32); Blood Urea Nitrogen 12 mg/dL (8-23); Calcium 9.2 mg/dL (8.5-10.5); Carbon Dioxide 29 mmol/L (22-29); Chloride 104 mmol/L (98-107); Globulin 1.7 g/dL (1.3-4.6); Glomerular Filtration Rate 100.3 mL/min (90-130); Glucose 118 mg/dL (65-115); Osmolality Calculated 291 mOsm/kg (285-295); Potassium 4.1 mmol/L (3.5-5.1); Sodium 140 mmol/L (136-145); Total Bilirubin 0.4 mg/dL (0.15-1.2); Total Protein 5.4 g/dL (6.6-8.7)
[2022-08-16 09:18] LABS: Slide Review Slide Review Perform
[2022-08-16 09:23] LABS: Absolute Segmented Neutrophil 0.4 10/cmm (1.6-7.1); Segmented Neutrophils 18 %; Total Cells Counted 100 (0-100)
[2022-08-16 09:24] LABS: Absolute Eosinophils 0.1 10^3/cmm (0.0-0.7); Absolute Neutrophil 0.4 10^3/cmm (1.4-6.5); Eosinophils 6 %; Lymphocytes 44 %; Lymphocytes Absolute 1.1 10^3/cmm (1.2-3.4); Monocytes Absolute 0.4 10^3/cmm (0.1-0.6); Platelet Estimate Decreased (Normal)
--- NOTE | 2022-08-16 12:13 | PC.NURSE ---
ANC 400. Results given to pt and Dr. Clifton Patterson. Pt has OV this a.m./lc
[2022-08-23 08:20] VITALS: BMI 33.9
[2022-08-23 08:28] LABS: Hematocrit 34.8 % (37.0-47.0); Mean Corpuscular HGB Conc 31.6 g/dL (30.0-36.0); Mean Corpuscular Hemoglobin 30.6 pg (28.0-34.0); Mean Corpuscular Volume 96.7 fl (81-99); Mean Platelet Volume 9.7 fL (7.4-10.4); Platelet Count 152 10^3/cmm (130-400); Red Cell Distribution Width 14.9 % (12.1-15.1); White Blood Count 8.3 10^3/uL (4.0-10.0)
[2022-08-23 08:42] LABS: Alanine Aminotransferase 15 U/L (0-33); Albumin Level 3.7 g/dL (3.5-5.2); Alkaline Phosphatase 135 U/L (35-105); Anion Gap 14.1 (5-19); Aspartate Amino Transferase 23 U/L (0-32); Blood Urea Nitrogen 22 mg/dL (8-23); Calcium 9.2 mg/dL (8.5-10.5); Carbon Dioxide 26 mmol/L (22-29); Chloride 105 mmol/L (98-107); Glucose 121 mg/dL (65-115); Osmolality Calculated 297 mOsm/kg (285-295); Potassium 4.1 mmol/L (3.5-5.1); Sodium 141 mmol/L (136-145); Total Bilirubin 0.3 mg/dL (0.15-1.2); Total Protein 5.7 g/dL (6.6-8.7)
[2022-08-23 09:29] LABS: Slide Review Slide Review Perform
[2022-08-23 09:32] LABS: Absolute Segmented Neutrophil 5.7 10/cmm (1.6-7.1); Band Neutrophils Absolute 0.7 10^3/cmm (0.0-1.2); Eosinophils 1 %; Lymphocytes 16 %; Lymphocytes Absolute 1.4 10^3/cmm (1.2-3.4); Monocytes Absolute 0.2 10^3/cmm (0.1-0.6); Segmented Neutrophils 69 %; Total Cells Counted 100 (0-100)
[2022-08-23 09:33] LABS: Anisocytosis Trace; Toxic Granulation 1+
[2022-08-23 09:34] LABS: Absolute Neutrophil 6.5 10^3/cmm (1.4-6.5); Platelet Estimate Normal (Normal)
--- NOTE | 2022-09-01 14:10 | ONCRAD EPV_ITS ---
Radiation Oncology Established Patient Visit Patient: Medardo Russell [id number] : 1955> Age: 67> Sex: Female> Dictated by: Dr. Thad To Date of Service: 09/01/2022 Referring Physician(s) : Robbie Ge M.D. Diagnosis: Breast, left, invasive ductal carcinoma, stage T2N1A, stage group IIb Radiotherapy to Date: None Current History: Dr. Chong saw Mrs. Batres about 6 months ago after she had a biopsy of the left breast which revealed poorly differentiated invasive ductal carcinoma. She was counseled on the need for postoperative radiation if breast conservation was selected. She did undergo breast conservation surgery. She had the lumpectomy and sentinel node biopsy March 22, 2022. The primary cancer was 2.5 x 2.2 cm. 2 sentinel nodes were taken and both were involved by metastatic carcinoma. No additional lymph nodes were removed. The risk profile showed ER 100%, PA 15%, HER2 negative, Ki-67 18% and Oncotype DX 33. She received 4 cycles of Taxol and cyclophosphamide given 3 weeks apart. She finished chemotherapy 08/19/2022. She will now take Arimidex for 5 years. Mrs. Batres is referred for counseling on radiation. She is scheduled to undergo simulation next week. Current Medications: Acetaminophen, alaway, b Complex 50, calcitrate, celeXA, daily Multiple Vitamins, minocin, mirtazapine, omeprazole, vitamin C-Vitamin E-Panthenol. Allergies: Morphine Sulfate (PF). Current Complaints / Review of Systems: . None. Vital Signs: Performed on 09/01/2022 1:12 PM BMI - 34.315 kg/m2 (high), Height - 66 in, Weight - 212.6 lbs, Temperature - 97.5 f, Pulse - 73 /min, Respiration - 18 /min, O2 Sat - 98 %, Pain - 0, Fatigue - 0 and BP - 124/ 69 mm(hg). Physical Exam: General: Alert and oriented x 3. No acute distress. Performance Status: ECOG 0 Lab: None pending. Pathology: See history. Impression: Mr. Clark completed postoperative chemotherapy for invasive ductal carcinoma of the left breast metastatic to 2 sentinel nodes. She is now a candidate for radiation to the breast and regional lymph nodes. I discussed that with her. I discussed a typical course of radiation, side effects, and possible complications. I discussed breast erythema and tenderness, lymphedema, low-grade pneumonitis, and chest wall pain. She wishes to proceed as recommended. Simulation is scheduled for next week. Signed by: 09/01/2022 2:09:17 PM <<Signature on File>> Time spent with patient: CPT Code: CPT Code:
== END 2022-09-04 23:59 | disposition home or self-care (01) ==
PROVIDERS: Internal Medicine Hematology & Oncology; PCP Family Medicine; Visit Provider Specialist
DX: C50.812 Malignant neoplasm of overlapping sites of left female breast (principal); Z17.0 Estrogen receptor positive status [ER+]; Z79.818 Long term (current) use of other agents affecting estrogen receptors and estrogen levels; Z92.21 Personal history of antineoplastic chemotherapy
CPT/HCPCS: 36591; 80053; 85007; 85025; 96367; 96375; 96377; 96413; 96415; 96417; 99214; 99215; J1100; J1200; J1453; J2469; J2506; J3490; J7040; J7050; J9070; J9171

== ENCOUNTER 2022-10-04 11:16 | Oncology outpatient (recurring) (ONCR) | payer MEDICARE, OTHER, SELFPAY ==
--- NOTE | 2022-09-08 | CT_ITS ---
Radiation Therapy Planning CT images; total exam DLP: 825.09 mGy-cm MTDD
[2022-09-08] MEDS: iohexol 350 mg/mL 100 mL Btl IV (13:17)
--- NOTE | 2022-09-14 11:46 | ONCRAD TMN_ITS ---
Radiation Oncology Treatment Management Note Patient Name: Yvonne Batres Date of : 1955 Date of Service: 09/13/2022 Attending Physician: Khoi Chong M.D. Yvonne Batres is a 67 year-old white female diagnosed with a pathological stage IIA (T2N1a) breast cancer. She was evaluated by her primary care physician in December for a left breast mass. A diagnostic mammogram revealed an ovoid nodule in the lower-outer quadrant of the left breast measuring 2.3 cm x 2 cm. Ultrasonography confirmed a solid hypoechoic lesion in the left breast at the 3 o'clock position that was 10 cm from the nipple that measured 2.5 cm x 2.2 cm x 1.5 cm. A needle core biopsy obtained on February 05, 2022 diagnosed a poorly-differentiated invasive ductal carcinoma. A Breast Cancer Prognostic Profile demonstrated estrogen receptor positivity (100%), progesterone receptor positivity (15%). HER2 was negative by FISH (IHC 1+). The KI???67 was 18%. Left breast partial mastectomy with shave margins and left axillary sentinel lymph node biopsy was performed by Robbie Ge M.D. on March 22, 2022. The pathological analysis confirmed a 2.5 cm x 2 cm x 2 cm poorly-differentiated invasive ductal carcinoma with lymphovascular invasion described. All surgical margins were negative for malignancy. A total of 2 sentinel lymph nodes were harvested that harbored metastatic disease. The largest lymph node measured 2.5 cm without extranodal extension. The Oncotype DX Breast Recurrence Score was 33 (average absolute chemotherapy benefit was 15%). Adjuvant chemotherapy (Cytoxan and Taxotere) were administered a total of 4 cycles between the dates of June 07, 2022 through August 09, 2022. She has been prescribed an aromatase inhibitor (Arimidex). She has received 2 Gy of a prescribed 50 Gy delivered with a 3D conformal radiotherapy plan utilizing opposed tangential portal clark with a lxnir-ie-ygave treatment technique matched to supraclavicular fossa and PAB clark. An additional 10 Gy in 5 fractions will be administered to the surgical bed at the conclusion of the whole breast treatment as a consequence of the patient's high-grade tumor characteristics. Upon review of systems, she denied any breast complaints to radiotherapy. On physical examination, the patient weighed 211 lbs. Her temperature was 99.9 ???F and the blood pressure was 134/83 mmHg. The pulse was 74 bpm and her respiratory rate was 16. There was no erythema within the treatment clark. Continue breast and regional lymph node irradiation as planned. Signed by: Dr. Khoi Chong 09/14/2022 11:45:13 AM
--- NOTE | 2022-09-20 13:04 | ONCRAD TMN_ITS ---
Radiation Oncology Treatment Management Note Patient Name: Yvonne Batres Date of : 1955 Date of Service: 09/20/2022 Attending Physician: Khoi Chong M.D. Yvonne Batres is a 67 year-old white female diagnosed with a pathological stage IIA (T2N1a) breast cancer. She was evaluated by her primary care physician in December for a left breast mass. A diagnostic mammogram revealed an ovoid nodule in the lower-outer quadrant of the left breast measuring 2.3 cm x 2 cm. Ultrasonography confirmed a solid hypoechoic lesion in the left breast at the 3 o'clock position that was 10 cm from the nipple that measured 2.5 cm x 2.2 cm x 1.5 cm. A needle core biopsy obtained on February 05, 2022 diagnosed a poorly-differentiated invasive ductal carcinoma. A Breast Cancer Prognostic Profile demonstrated estrogen receptor positivity (100%), progesterone receptor positivity (15%). HER2 was negative by FISH (IHC 1+). The KI???67 was 18%. Left breast partial mastectomy with shave margins and left axillary sentinel lymph node biopsy was performed by Robbie Ge M.D. on March 22, 2022. The pathological analysis confirmed a 2.5 cm x 2 cm x 2 cm poorly-differentiated invasive ductal carcinoma with lymphovascular invasion described. All surgical margins were negative for malignancy. A total of 2 sentinel lymph nodes were harvested that harbored metastatic disease. The largest lymph node measured 2.5 cm without extranodal extension. The Oncotype DX Breast Recurrence Score was 33 (average absolute chemotherapy benefit was 15%). Adjuvant chemotherapy (Cytoxan and Taxotere) were administered a total of 4 cycles between the dates of June 07, 2022 through August 09, 2022. She has been prescribed an aromatase inhibitor (Arimidex). She has received 12 Gy of a prescribed 50 Gy delivered with a 3D conformal radiotherapy plan utilizing opposed tangential portal clark with a vkleq-os-jzogk treatment technique matched to supraclavicular fossa and PAB clark. An additional 10 Gy in 5 fractions will be administered to the surgical bed at the conclusion of the whole breast treatment as a consequence of the patient's high-grade tumor characteristics. Upon review of systems, she denied any breast complaints related to radiotherapy. On physical examination, the patient weighed 210 lbs. Her temperature was 99.3 ???F and the blood pressure was 132/82 mmHg. The pulse was 65 bpm and her respiratory rate was 16. There was no erythema within the treatment clark. Continue breast and regional lymph node irradiation as prescribed. Signed by: Dr. Khoi Chong 09/20/2022 1:02:25 PM
[2022-09-23 10:37] LABS: Basophils # 0.1 10^3/uL (0.0-0.1); Basophils % 1.3 %; Eosinophils # 0.5 10^3/uL (0.0-0.8); Eosinophils % 13.2 %; Hematocrit 36.5 % (37.0-47.0); Hemoglobin 11.7 g/dL (11.5-15.3); Lymphocytes # 0.6 10^3/uL (0.8-4.8); Lymphocytes % 15.1 %; Mean Corpuscular HGB Conc 32.1 g/dL (30.0-36.0); Mean Corpuscular Hemoglobin 30.5 pg (28.0-34.0); Mean Corpuscular Volume 95.1 fl (81-99); Mean Platelet Volume 9.9 fL (7.4-10.4); Monocytes # 0.2 10^3/uL (0.2-0.9); Neutrophils # 2.47 10^3/uL (1.8-7.7); Neutrophils % 64.1 %; Nucleated Red Blood Cells % 0 %; Platelet Count 130 10^3/cmm (130-400); Red Blood Count 3.84 10^6/uL (4.1-5.3); Red Cell Distribution Width 12.4 % (12.1-15.1); White Blood Count 3.9 10^3/uL (4.0-10.0)
[2022-09-23 11:03] LABS: Alanine Aminotransferase 15 U/L (0-33); Albumin Level 3.8 g/dL (3.5-5.2); Alkaline Phosphatase 117 U/L (35-105); Anion Gap 13.8 (5-19); Aspartate Amino Transferase 21 U/L (0-32); Blood Urea Nitrogen 19 mg/dL (8-23); Carbon Dioxide 26 mmol/L (22-29); Chloride 107 mmol/L (98-107); Globulin 1.7 g/dL (1.3-4.6); Glucose 141 mg/dL (65-115); Osmolality Calculated 301 mOsm/kg (285-295); Potassium 3.8 mmol/L (3.5-5.1); Sodium 143 mmol/L (136-145); Total Bilirubin 0.4 mg/dL (0.15-1.2); Total Protein 5.5 g/dL (6.6-8.7)
--- NOTE | 2022-09-27 13:01 | ONCRAD TMN_ITS ---
Radiation Oncology Treatment Management Note Patient Name: Yvonne Batres Date of : 1955 Date of Service: 09/27/2022 Attending Physician: Khoi Chong M.D. Yvonne Batres is a 67 year-old white female diagnosed with a pathological stage IIA (T2N1a) breast cancer. She was evaluated by her primary care physician in December for a left breast mass. A diagnostic mammogram revealed an ovoid nodule in the lower-outer quadrant of the left breast measuring 2.3 cm x 2 cm. Ultrasonography confirmed a solid hypoechoic lesion in the left breast at the 3 o'clock position that was 10 cm from the nipple that measured 2.5 cm x 2.2 cm x 1.5 cm. A needle core biopsy obtained on February 05, 2022 diagnosed a poorly-differentiated invasive ductal carcinoma. A Breast Cancer Prognostic Profile demonstrated estrogen receptor positivity (100%), progesterone receptor positivity (15%). HER2 was negative by FISH (IHC 1+). The KI???67 was 18%. Left breast partial mastectomy with shave margins and left axillary sentinel lymph node biopsy was performed by Robbie Ge M.D. on March 22, 2022. The pathological analysis confirmed a 2.5 cm x 2 cm x 2 cm poorly-differentiated invasive ductal carcinoma with lymphovascular invasion described. All surgical margins were negative for malignancy. A total of 2 sentinel lymph nodes were harvested that harbored metastatic disease. The largest lymph node measured 2.5 cm without extranodal extension. The Oncotype DX Breast Recurrence Score was 33 (average absolute chemotherapy benefit was 15%). Adjuvant chemotherapy (Cytoxan and Taxotere) were administered a total of 4 cycles between the dates of June 07, 2022 through August 09, 2022. She has been prescribed an aromatase inhibitor (Arimidex). She has received 22 Gy of a prescribed 50 Gy delivered with a 3D conformal radiotherapy plan utilizing opposed tangential portal clark with a togyo-lr-cjihh treatment technique matched to supraclavicular fossa and PAB clark. An additional 10 Gy in 5 fractions will be administered to the surgical bed at the conclusion of the whole breast treatment as a consequence of the patient's high-grade tumor characteristics. Upon review of systems, she denied any breast complaints related to radiotherapy. On physical examination, the patient weighed 211 lbs. Her temperature was 97.7 ???F and the blood pressure was 123/83 mmHg. The pulse was 65 bpm and her respiratory rate was 17. There was mild erythema within the left axilla. Continue breast and regional lymph node irradiation as planned. Signed by: Dr. Khoi Chong 09/27/2022 1:00:17 PM
--- NOTE | 2022-10-04 13:00 | ONCRAD TMN_ITS ---
Radiation Oncology Treatment Management Note Patient Name: Yvonne Batres Date of : 1955 Date of Service: 10/04/2022 Attending Physician: Khoi Chong M.D. Yvonne Batres is a 67 year-old white female diagnosed with a pathological stage IIA (T2N1a) breast cancer. She was evaluated by her primary care physician in December for a left breast mass. A diagnostic mammogram revealed an ovoid nodule in the lower-outer quadrant of the left breast measuring 2.3 cm x 2 cm. Ultrasonography confirmed a solid hypoechoic lesion in the left breast at the 3 o'clock position that was 10 cm from the nipple that measured 2.5 cm x 2.2 cm x 1.5 cm. A needle core biopsy obtained on February 05, 2022 diagnosed a poorly-differentiated invasive ductal carcinoma. A Breast Cancer Prognostic Profile demonstrated estrogen receptor positivity (100%), progesterone receptor positivity (15%). HER2 was negative by FISH (IHC 1+). The KI???67 was 18%. Left breast partial mastectomy with shave margins and left axillary sentinel lymph node biopsy was performed by Robbie Ge M.D. on March 22, 2022. The pathological analysis confirmed a 2.5 cm x 2 cm x 2 cm poorly-differentiated invasive ductal carcinoma with lymphovascular invasion described. All surgical margins were negative for malignancy. A total of 2 sentinel lymph nodes were harvested that harbored metastatic disease. The largest lymph node measured 2.5 cm without extranodal extension. The Oncotype DX Breast Recurrence Score was 33 (average absolute chemotherapy benefit was 15%). Adjuvant chemotherapy (Cytoxan and Taxotere) were administered a total of 4 cycles between the dates of June 07, 2022 through August 09, 2022. She has been prescribed an aromatase inhibitor (Arimidex). She has received 30 Gy of a prescribed 50 Gy delivered with a 3D conformal radiotherapy plan utilizing opposed tangential portal clark with a jopbs-dp-chdnr treatment technique matched to supraclavicular fossa and PAB clark. An additional 10 Gy in 5 fractions will be administered to the surgical bed at the conclusion of the whole breast treatment as a consequence of the patient's high-grade tumor characteristics. Upon review of systems, she denied any complaints. On physical examination, the patient weighed 211 lbs. Her temperature was 97.5 ???F and the blood pressure was 164/86 mmHg. The pulse was 69 bpm and her respiratory rate was 18. There was a grade II erythema within the left axilla and left inframammary fold. Continue breast and regional lymph node irradiation as prescribed. Signed by: Dr. Khoi Chong 10/04/2022 1:00:01 PM
== END 2022-10-05 23:59 | disposition home or self-care (01) ==
PROVIDERS: Internal Medicine Hematology & Oncology; PCP Family Medicine; Visit Provider Radiology Radiation Oncology
DX: Z51.0 Encounter for antineoplastic radiation therapy (principal); C50.812 Malignant neoplasm of overlapping sites of left female breast; Z17.0 Estrogen receptor positive status [ER+]; Z90.12 Acquired absence of left breast and nipple; C77.8 Secondary and unspecified malignant neoplasm of lymph nodes of multiple regions; L25.1 Unspecified contact dermatitis due to drugs in contact with skin; T45.1X5A Adverse effect of antineoplastic and immunosuppressive drugs, initial encounter; Z79.811 Long term (current) use of aromatase inhibitors
CPT/HCPCS: 36591; 77290; 77295; 77300; 77334; 77336; 77385; 77387; 77412; 77470; 80053; 85025; 99024; 99214; Q9967

== ENCOUNTER 2022-11-02 11:06 | Oncology outpatient (recurring) (ONCR) | payer MEDICARE, OTHER, SELFPAY ==
--- NOTE | 2022-10-18 12:38 | ONCRAD TMN_ITS ---
Radiation Oncology Treatment Management Note Patient Name: Yvonne Batres Date of : 1955 Date of Service: 10/18/2022 Attending Physician: Khoi Chong M.D. Yvonne Batres is a 67 year-old white female diagnosed with a pathological stage IIA (T2N1a) breast cancer. She was evaluated by her primary care physician in December for a left breast mass. A diagnostic mammogram revealed an ovoid nodule in the lower-outer quadrant of the left breast measuring 2.3 cm x 2 cm. Ultrasonography confirmed a solid hypoechoic lesion in the left breast at the 3 o'clock position that was 10 cm from the nipple that measured 2.5 cm x 2.2 cm x 1.5 cm. A needle core biopsy obtained on February 05, 2022 diagnosed a poorly-differentiated invasive ductal carcinoma. A Breast Cancer Prognostic Profile demonstrated estrogen receptor positivity (100%), progesterone receptor positivity (15%). HER2 was negative by FISH (IHC 1+). The KI???67 was 18%. Left breast partial mastectomy with shave margins and left axillary sentinel lymph node biopsy was performed by Robbie Ge M.D. on March 22, 2022. The pathological analysis confirmed a 2.5 cm x 2 cm x 2 cm poorly-differentiated invasive ductal carcinoma with lymphovascular invasion described. All surgical margins were negative for malignancy. A total of 2 sentinel lymph nodes were harvested that harbored metastatic disease. The largest lymph node measured 2.5 cm without extranodal extension. The Oncotype DX Breast Recurrence Score was 33 (average absolute chemotherapy benefit was 15%). Adjuvant chemotherapy (Cytoxan and Taxotere) were administered a total of 4 cycles between the dates of June 07, 2022 through August 09, 2022. She has been prescribed an aromatase inhibitor (Arimidex). She has received 38 Gy of a prescribed 50 Gy delivered with a 3D conformal radiotherapy plan utilizing opposed tangential portal clark with a mzkll-tt-qbkqi treatment technique matched to supraclavicular fossa and PAB clark. An additional 10 Gy in 5 fractions will be administered to the surgical bed at the conclusion of the whole breast treatment as a consequence of the patient's high-grade tumor characteristics. Upon review of systems, she denied any complaints. On physical examination, the patient weighed 214 lbs. Her temperature was 97.6 ???F and the blood pressure was 140/84 mmHg. The pulse was 71 bpm and her respiratory rate was 16. There was no erythema within treatment clark. Continue breast and regional lymph node irradiation as planned. Signed by: Dr. Khoi Chong 10/18/2022 12:36:22 PM
--- NOTE | 2022-10-25 11:27 | ONCRAD TMN_ITS ---
Radiation Oncology Treatment Management Note Patient Name: Yvonne Batres Date of : 1955 Date of Service: 10/25/2022 Attending Physician: Khoi Chong M.D. Yvonne Batres is a 67 year-old white female diagnosed with a pathological stage IIA (T2N1a) breast cancer. She was evaluated by her primary care physician in December for a left breast mass. A diagnostic mammogram revealed an ovoid nodule in the lower-outer quadrant of the left breast measuring 2.3 cm x 2 cm. Ultrasonography confirmed a solid hypoechoic lesion in the left breast at the 3 o'clock position that was 10 cm from the nipple that measured 2.5 cm x 2.2 cm x 1.5 cm. A needle core biopsy obtained on February 05, 2022 diagnosed a poorly-differentiated invasive ductal carcinoma. A Breast Cancer Prognostic Profile demonstrated estrogen receptor positivity (100%), progesterone receptor positivity (15%). HER2 was negative by FISH (IHC 1+). The KI???67 was 18%. Left breast partial mastectomy with shave margins and left axillary sentinel lymph node biopsy was performed by Robbie Ge M.D. on March 22, 2022. The pathological analysis confirmed a 2.5 cm x 2 cm x 2 cm poorly-differentiated invasive ductal carcinoma with lymphovascular invasion described. All surgical margins were negative for malignancy. A total of 2 sentinel lymph nodes were harvested that harbored metastatic disease. The largest lymph node measured 2.5 cm without extranodal extension. The Oncotype DX Breast Recurrence Score was 33 (average absolute chemotherapy benefit was 15%). Adjuvant chemotherapy (Cytoxan and Taxotere) were administered a total of 4 cycles between the dates of June 07, 2022 through August 09, 2022. She has been prescribed an aromatase inhibitor (Arimidex). She has received 48 Gy of a prescribed 50 Gy delivered with a 3D conformal radiotherapy plan utilizing opposed tangential portal clark with a gkjmx-ox-rcdql treatment technique matched to supraclavicular fossa and PAB clark. An additional 10 Gy in 5 fractions will be administered to the surgical bed at the conclusion of the whole breast treatment as a consequence of the patient's high-grade tumor characteristics. Upon review of systems, she did not describe any complaints. On physical examination, the patient weighed 217 lbs. Her temperature was 97 ???F and the blood pressure was 167/79 mmHg. The pulse was 86 bpm and her respiratory rate was 17. There was mild erythema within the treatment clark. Continue breast and regional lymph node irradiation as prescribed. Signed by: Khoi Chong 10/25/2022 11:26:13 AM
--- NOTE | 2022-11-02 11:34 | N.ONRD TS_ITS ---
Radiation OncologyTreatment Summary Patient Name: Yvonne Batres Date of : 1955 Date of Service: 11/02/2022 Attending Physician: Khoi Chong M.D. Yvonne Batres has completed adjuvant breast and regional lymph node radiotherapy for the management of a pathological stage IIA (T2N1a) breast cancer. She was evaluated by her primary care physician in December for a left breast mass. A diagnostic mammogram revealed an ovoid nodule in the lower-outer quadrant of the left breast measuring 2.3 cm x 2 cm. Ultrasonography confirmed a solid hypoechoic lesion in the left breast at the 3 o'clock position that was 10 cm from the nipple that measured 2.5 cm x 2.2 cm x 1.5 cm. A needle core biopsy obtained on February 05, 2022 diagnosed a poorly-differentiated invasive ductal carcinoma. A Breast Cancer Prognostic Profile demonstrated estrogen receptor positivity (100%), progesterone receptor positivity (15%). HER2 was negative by FISH (IHC 1+). The KI???67 was 18%. Left breast partial mastectomy with shave margins and left axillary sentinel lymph node biopsy was performed by Robbie Ge M.D. on March 22, 2022. The pathological analysis confirmed a 2.5 cm x 2 cm x 2 cm poorly-differentiated invasive ductal carcinoma with lymphovascular invasion described. All surgical margins were negative for malignancy. A total of 2 sentinel lymph nodes were harvested that harbored metastatic disease. The largest lymph node measured 2.5 cm without extranodal extension. The Oncotype DX Breast Recurrence Score was 33 (average absolute chemotherapy benefit was 15%). Adjuvant chemotherapy (Cytoxan and Taxotere) were administered a total of 4 cycles between the dates of June 07, 2022 through August 09, 2022. She has been prescribed an aromatase inhibitor (Arimidex). Daily radiotherapy was administered between the dates of September 13, 2022 through November 02, 2022. A prescribed dose of 50 Gy was delivered in 25 fractions encompassing 52 elapsed days. The left breast and regional lymph nodes were treated utilizing a 3-dimensional conformal radiotherapy plan with an opposed tangential portal field design with separate supraclavicular and a posterior axillary boost clark. The medial tangential field utilized a 303??? gantry angle with an associated collimator angle of 0??? and a table angle of 3.5???. The field size measured 6.7 cm x 7.4 cm within the X-direction and 16.8 cm x 5 cm within the Y-direction. The measured SSD was 95.1 cm with the field delivering 97 monitor units. A photon energy of 6 MV was prescribed. The lateral tangential field employed a gantry angle of 135??? and an associated collimator angle of 0???. The field size measured 7.4 cm x 6.7 cm within X-direction and 18.8 cm x 5 cm within the Y-direction. The SSD measured 86.4 cm with the field administering 121 monitor units. A photon energy of 15 MV was dispensed. Supplemental ports with multi-leaf collimation was designed allocating 11 MU and 9 MU. An additional medial lateral field was incorporated with low-energy photons providing 8 MU. An auxiliary aperture was required for CTV coverage planned with a 350??? gantry angle without collimation. An additional 41 MU were administered with a 15 MV photon energy. The supraclavicular portal field utilized an GAGNON port with a gantry angle of 345??? and an associated collimator angle 0???. The port size measured 7.2 cm x 6 cm within the X-direction and 0 cm x 6.1 cm within the Y-direction. The measured SSD was 95.6 cm with the field distributing 182 monitor units. Low-energy photons were allocated. A supplemental field with multi-leaf collimation was designed that apportioned 11 MU with 15 MV photons. The posterior axillary boost field applied a gantry angle of 180??? with an associated collimator angle of 0???. The port size measured 6 cm x 7.2 cm within the X-direction and 0 cm x 6.1 cm within the Y-direction. The measured SSD was 87.3 cm with the port transmitting 22 monitor units. A photon energy of 15 MV was disbursed. The initial treatment commenced on September 13, 2022 and continued through October 26, 2022. A prescribed dose of 50 Gy was delivered in 25 fractions encompassing 44 elapsed days. The surgical bed was then treated with an opposed wedge pair with gantry angles of 60??? and 126???, respectively. An associated collimator angle of 0??? was planned. The field sizes measured 10.7 cm x 5.4 cm 5.7 cm x 7.4 cm. The measured SSD were 94.9 cm and 72.9 cm. The ports delivered 31 MU and 99 MU. A 45??? enhanced dynamic wedge was incorporated. High-Energy photons were prescribed. A contributory field was required for target coverage utilizing a 350 gantry angle without collimation. An additional 118 MU were administered with a 15 MV photon energy. The reduced ports initiated on October 27, 2022 through November 02, 2022. An additional 10 Gy was allocated in 5 fractions over 7 elapsed days. All treatments were performed with the Stribe linear accelerator with an isocentric technique. ???The dose was calculated by Anisotropic Analytic Algorithm with the plana normalized to deliver 95% of the prescription dose to 95% of the planning target volume (initial plan) and 100% of the prescription dose to 97% of the PTV (Phase II). Signed by: Khoi Chong 11/02/2022 11:32:44 AM
== END 2022-11-02 23:59 | disposition home or self-care (01) ==
PROVIDERS: PCP Family Medicine; Visit Provider Radiology Radiation Oncology
DX: Z51.0 Encounter for antineoplastic radiation therapy (principal); C50.812 Malignant neoplasm of overlapping sites of left female breast; Z17.0 Estrogen receptor positive status [ER+]; C77.8 Secondary and unspecified malignant neoplasm of lymph nodes of multiple regions; Z79.811 Long term (current) use of aromatase inhibitors
CPT/HCPCS: 77014; 77307; 77334; 77336; 77387; 77412; 96523; 99024

== ENCOUNTER 2022-11-12 14:48 | Outpatient (CLI) | payer MEDICARE, OTHER, SELFPAY ==
--- NOTE | 2022-11-12 15:00 | XR_ITS ---
WS: [id number] DEXA (DUAL ENERGY X-RAY ABSORPTIOMETRY) Bone mineral density was performed using a [employer] W[employer] machine. HISTORY: Hormone Therapy COMPARISON: None available. Lumbar spine BMD (L1-L4): 1.344 g/cm2 T score: 1.4 Z score: 2.0 Total hip BMD: Left: 1.174 g/cm2. T score: 1.3 Z score: 1.8 Right: 1.161 g/cm2. T score: 1.2 Z score: 1.7 10 year probability of a major osteoporotic fracture is 5.9% XR/XR DEXA axial skeleton* [id number] IMPRESSION: NORMAL BONE MINERAL DENSITY based upon the WHO classification for females.
== END 2022-11-12 14:49 | disposition home or self-care (01) ==
PROVIDERS: PCP Family Medicine; Visit Provider Internal Medicine Hematology & Oncology
DX: Z79.811 Long term (current) use of aromatase inhibitors (principal); C50.912 Malignant neoplasm of unspecified site of left female breast
CPT/HCPCS: 77080

== ENCOUNTER 2022-11-24 14:19 | Emergency (ER) | payer MEDICARE, OTHER, SELFPAY ==
[2022-11-24 14:23] VITALS: BP 161/96; PULSE 89; RESP 14; TEMP 36.7; O2SAT 98
--- NOTE | 2022-11-24 14:44 | CTR_ITS ---
PROCEDURE INFORMATION: Exam: CTA Chest With Contrast Exam date and time: 11/24/2022 4:30 PM Age: 67 years old Clinical indication: Chest wall pain; Additional info: Left-sided chest pain TECHNIQUE: Imaging protocol: Computed tomographic angiography of the chest with contrast. 3D rendering (Not supervised by radiologist): MIP and/or 3D reconstructed images were created by the technologist. Radiation optimization: All CT scans at this facility use at least one of these dose optimization techniques: automated exposure control; mA and/or kV adjustment per patient size (includes targeted exams where dose is matched to clinical indication); or iterative reconstruction. Contrast material: OMNI 350; Contrast volume: 100 ml; Contrast route: INTRAVENOUS (IV); REPORTING DATA: Count of CT and Cardiac NM exams in prior 12 months: This patient has received [address] and 0 known cardiac nuclear medicine studies in the 12 months prior to the current study. COMPARISON: CR XR chest 1V portable [id number] 06/03/2022 9:01 AM RADIATION DOSE METRICS: Total DLP (mGy-cm): 396.07 FINDINGS: Tubes, catheters and devices: Right Osovya-X-Xmuz. Pulmonary arteries: Normal. No pulmonary emboli. Aorta: Unremarkable. No aortic aneurysm. No aortic dissection. Lungs: Mosaic attenuation scattered throughout both lungs. Mild dependent atelectasis. No consolidation. Pleural spaces: Unremarkable. No pneumothorax. No pleural effusion. Heart: Unremarkable. No cardiomegaly. No pericardial effusion. Lymph nodes: Unremarkable. No enlarged lymph nodes. Kidneys and ureters: Left renal cyst, Hounsfield units less than 20. No follow-up imaging is recommended. Stomach and bowel: Postsurgical changes of the stomach. Bones/joints: Degenerative changes of the spine. No fracture. Soft tissues: Clips in the left axilla and chest wall. CT/CT angio chest PE protcl [id number] IMPRESSION: 1. No acute findings. 2. Mosaic attenuation in both lungs is consistent with air trapping, most likely related to small airways disease. COMMENTS: Consistent with the [place]'s Incidental Findings Committee white paper (J Am Jake Radiol 2018): Any incidental renal lesion less than 1 cm or classified as too small to characterize, or any incidental cystic renal lesion characterized as simple-appearing, is likely benign. No follow-up imaging is recommended for these lesions per consensus recommendations based on imaging criteria.
--- NOTE | 2022-11-24 14:47 | ECG_ITS ---
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 Measurements Intervals [place] Rate: 86 P: 23 GA: 177 QRS: -16 QRSD: 74 T: 30 QT: 364 QTc: 436 Interpretive Statements SINUS RHYTHM LOW QRS VOLTAGE IN PRECORDIAL LEADS [QRS DEFLECTION < 1.0 mV IN CHEST LEADS] POSSIBLE ANTERIOR MYOCARDIAL INFARCTION , PROBABLY OLD [30 ms Q WAVE IN V3/V4, OR R < 0.2 mV IN V4] No previous ECG available for comparison Electronically Signed On 11-24-2022 16:31:41 CDT by Edvin Gaming M.D. [email or web address] systemHardide Coatingscle[facility].[employer]/store/NU/[id number] enrique
--- NOTE | 2022-11-24 14:49 | W.ED.CHESTPA ---
HPI - Chest Pain General: Chief Complaint: Chest Pain Stated Complaint: chest pain Time Seen by Provider: 11/24/22 14:35 Source: patient Mode of arrival: ambulatory Limitations: no limitations History of Present Illness: This 67-year-old female with a history of left breast cancer (s/p lumpectomy and radiation therapy, presents to the ER with left-sided chest pain that started around 9 AM this morning. Patient recalls how she was having left shoulder pain because she was laying on her left side and when she decided to lay on her back, the chest pain started. She describes the pain as sharp/pressure in nature. It radiates into the left side of the neck and left chain. Pain is rated at 6 out of 10 with no associated nausea or vomiting. Patient has no fever. She has no prior history of coronary artery disease and has no stents in place. She had a stress test about 5 years ago that was unremarkable. Patient appears clinically stable.. Review of Systems General: Reports: 10 or more systems reviewed and unremarkable except in HPI and below Card: Reports: chest pain PFSH ED PFSH: Medical History Acne Bunion of right foot Bunion, left foot Chronic kidney disease Depression Invasive ductal carcinoma of left breast Phyllodes tumor Presence of other vascular implants and grafts Trigger finger of right hand Surgical History H/O: hysterectomy History of Achilles tendon repair History of bunionectomy 1971 and 1974 History of colonoscopy History of gastric bypass History of tonsillectomy and adenoidectomy 1960 History of total knee replacement Status post left breast lumpectomy Family History Father Clotting disorder CAD (coronary artery disease) Hyperlipidemia Stroke Mother Cancer Previous ovarian cancer Breast and bone cancer Other Chronic kidney disease (CKD) Diabetes Hypertension Psychiatric illness Denies family history of Dementia Suicide Anesthesia complication Bleeding disorder Lung disease Social History Smoking and tobacco status: never smoked Alcohol intake: current Alcohol intake frequency: holidays/special occasions only Physical Exam Const: COMMON NORMALS: no acute distress, patient oriented x3, no limitations and alert HENMT: COMMON NORMALS: normocephalic HEAD & SCALP: normocephalic Chest: COMMONS NORMALS: normal inspection of the chest OTHER: Mild tenderness on palpation of the left anterior chest wall. No redness, swelling or bruising to suggest trauma/infection. Resp: COMMON NORMALS: normal respiratory effort, No retractions, No use of accessory muscles and clear to auscultation bilaterally AUSCULTATION: clear to auscultation bilaterally Cardio: COMMON NORMALS: regular rate, regular rhythm and No murmurs present (Cardio) RATE: regular rate RHYTHM: regular rhythm GI: COMMON NORMALS: Normal to inspection, nondistended, normoactive bowel sounds present and non-tender Extremity: GENERAL: Yes normal exam except as noted Neuro: COMMON NORMALS: patient oriented x3 and no focal motor deficits SENSORIUM/ORIENTATION: Yes alert Psych: COMMON NORMALS: mental status grossly normal and cooperative Course Vital Signs: Vital signs: Vital Signs Temperature 98.1 F 11/24/22 14:23 Pulse Rate 100 11/24/22 17:25 Respiratory Rate 13 11/24/22 17:25 Blood Pressure 142/82 11/24/22 17:25 Pulse Oximetry 98 11/24/22 17:25 Oxygen Delivery Me thod 11/24/22 17:25 MDM - Chest Pain Medical Decision Making Medical decision making: This 67-year-old presents with left-sided chest pain that started around 9 AM this morning. She has a history of left breast cancer and recently finished a course of radiation treatment about a month ago. On exam, pain is somewhat reproducible on palpation of the left anterior chest wall. Initial troponin is negative and repeat troponin 2 hours later is negative. EKG reveals no signs of acute ischemic changes. Given her history of breast cancer and with concerns for possible pulmonary embolism, CTA chest was obtained. It was negative for PE and does not reveal any acute intrathoracic findings that would explain her pain. At this time, differentials like pulmonary embolism, acute coronary syndrome, pleural effusion, pericardial effusion, aortic dissection and pneumonia are unlikely. It is possible that her pain is related to her radiation treatment or it could just be musculoskeletal. There is no indication to admit her at this time. She was advised to follow-up with her primary care physician but to return with any new or worsening symptoms. Patient and verbalized understanding and agree with the plan. Lab Data 11/24/22 14:15 11/24/22 14:15 Radiology Impressions Chest CTA 11/24/22 14:44 IMPRESSION: 1. No acute findings. 2. Mosaic attenuation in both lungs is consistent with air trapping, most likely related to small airways disease. COMMENTS: Consistent with the [place] [employer]'s Incidental Findings Committee white paper (J Am Jake Radiol 2018): Any incidental renal lesion less than 1 cm or classified as too small to characterize, or any incidental cystic renal lesion characterized as simple-appearing, is likely benign. No follow-up imaging is recommended for these lesions per consensus recommendations based on imaging criteria. Laboratory Results WBC 7.5 10^3/uL (4.0-10.0) 11/24/22 14:15 RBC 4.75 10^6/uL (4.1-5.3) 11/24/22 14:15 Hgb 13.8 g/dL (11.5-15.3) 11/24/22 14:15 Hct 42.2 % (37.0-47.0) 11/24/22 14:15 MCV 88.8 fl (81-99) 11/24/22 14:15 MCH 29.1 pg (28.0-34.0) 11/24/22 14:15 MCHC 32.7 g/dL (30.0-36.0) 11/24/22 14:15 RDW 12.0 % (12.1-15.1) L 11/24/22 14:15 Plt Count 157 10^3/cmm (130-400) 11/24/22 14:15 MPV 9.5 fL (7.4-10.4) 11/24/22 14:15 Neut % (Auto) 78.7 % 11/24/22 14:15 Lymph % (Auto) 9.1 % 11/24/22 14:15 Kings % (Auto) 7.3 % 11/24/22 14:15 Eos % (Auto) 3.7 % 11/24/22 14:15 Baso % (Auto) 0.9 % 11/24/22 14:15 Neut # (Auto) 5.89 10^3/uL (1.8-7.7) 11/24/22 14:15 Lymph # (Auto) 0.7 10^3/uL (0.8-4.8) L 11/24/22 14:15 Kings # (Auto) 0.6 10^3/uL (0.2-0.9) 11/24/22 14:15 Eos # (Auto) 0.3 10^3/uL (0.0-0.8) 11/24/22 14:15 Baso # (Auto) 0.1 10^3/uL (0.0-0.1) 11/24/22 14:15 Nucleated RBC % (auto) 0 % 11/24/22 14:15 Nucleated RBCs # 0.0 /100WBC 11/24/22 14:15 Sodium 142 mmol/L (136-145) 11/24/22 14:15 Potassium 3.8 mmol/L (3.5-5.1) 11/24/22 14:15 Chloride 106 mmol/L (98-107) 11/24/22 14:15 Carbon Dioxide 25 mmol/L (22-29) 11/24/22 14:15 Anion Gap 14.8 (5-19) 11/24/22 14:15 BUN 20 mg/dL (8-23) 11/24/22 14:15 Creatinine 0.8 mg/dL (0.5-0.9) 11/24/22 14:15 GFR Calculation 72.0 mL/min (90-130) L 11/24/22 14:15 Glucose 86 mg/dL (65-115) 11/24/22 14:15 Calculated Osmolality 296 mOsm/kg (285-295) H 11/24/22 14:15 Calcium 9.2 mg/dL (8.5-10.5) 11/24/22 14:15 Total Bilirubin 0.4 mg/dL (0.15-1.2) 11/24/22 14:15 AST 31 U/L (0-32) 11/24/22 14:15 ALT 22 U/L (0-33) 11/24/22 14:15 Alkaline Phosphatase 129 U/L (35-105) H 11/24/22 14:15 Troponin T Baseline 7 ng/L (0-10) 11/24/22 14:15 Troponin T 120 Minute 6.87 ng/L (0-10) 11/24/22 16:15 Delta Troponin T -0.13 ABS# (0-10) L 11/24/22 16:15 Total Protein 6.0 g/dL (6.6-8.7) L 11/24/22 14:15 Albumin 4.1 g/dL (3.5-5.2) 11/24/22 14:15 Globulin 1.9 g/dL (1.3-4.6) 11/24/22 14:15 Discharge Plan Discharge Patient Disposition: Home Clinical Impression: Atypical chest pain Condition: Stable Prescriptions: No Action multivitamin [Daily Multi-Vitamin] Tablet 1 tab PO BID ICaps AREDS2 (copper citrate) 250 mg-200 unit -12.5 mg-1 mg tablet,chewable 1 tab PO BID calcium citrate 250 mg calcium tablet 250 mg PO TID vitamin B complex Tablet 1 tab PO DAILY acetaminophen [Tylenol Arthritis Pain] 650 mg tablet extended release 650 mg PO Q8H PRN (Reason: Pain) TheraTears 0.25 % dropperette 1 drp ophthalmic (eye) DAILY anastrozole 1 mg tablet 1 mg PO DAILY Qty: 30 6RF omeprazole 40 mg capsule,delayed release(DR/EC) See Rx Instructions .ROUTE .COMPLEX Qty: 90 2RF Dose Instruction: Take 1 capsule by mouth in the morning Rx Instructions: Take 1 capsule by mouth in the morning citalopram 40 mg tablet 40 mg PO DAILY Qty: 90 2RF minocycline 50 mg capsule 50 mg PO BID Qty: 60 10RF mirtazapine 15 mg tablet 15 mg PO BEDTIME Discharge Orders: Discharge ED (Routine); Ordered 11/24/22 Ordered By: Rhianna Cortes Referrals: Satnam Muro MD [Primary Care Provider] - Discharge Diet: Usual diet Discharge Activity: Resume usual activity Patient Instructions: Opioid Safety, Pain Management Activity Restrictions/Additional Instructions: Take [id number] Tylenol or Motrin as needed for your pain. Continue your usual home medications. Follow-up with your primary care physician in 2 to 3 days for reevaluation. You may benefit from an outpatient stress test if your symptoms continue. Return if you develop new or worsening symptoms. Coding Level of Care Code ED Parking Regulation Enforcement Officer for Radha Trujillo
[2022-11-24] MEDS: aspirin 81 mg Chew Tablet 324 MG PO (14:53)
[2022-11-24] MEDS: nitroglycerin 0.4 mg sublingual Tablet SUBLINGUAL (14:54)
[2022-11-24 15:12] LABS: Basophils # 0.1 10^3/uL (0.0-0.1); Basophils % 0.9 %; Eosinophils # 0.3 10^3/uL (0.0-0.8); Eosinophils % 3.7 %; Hematocrit 42.2 % (37.0-47.0); Hemoglobin 13.8 g/dL (11.5-15.3); Lymphocytes # 0.7 10^3/uL (0.8-4.8); Lymphocytes % 9.1 %; Mean Corpuscular HGB Conc 32.7 g/dL (30.0-36.0); Mean Corpuscular Hemoglobin 29.1 pg (28.0-34.0); Mean Corpuscular Volume 88.8 fl (81-99); Mean Platelet Volume 9.5 fL (7.4-10.4); Monocytes # 0.6 10^3/uL (0.2-0.9); Monocytes % 7.3 %; Neutrophils # 5.89 10^3/uL (1.8-7.7); Neutrophils % 78.7 %; Nucleated Red Blood Cells % 0 %; Platelet Count 157 10^3/cmm (130-400); Red Blood Count 4.75 10^6/uL (4.1-5.3); White Blood Count 7.5 10^3/uL (4.0-10.0)
[2022-11-24 15:42] LABS: Troponin(5th) Baseline 7 ng/L (0-10)
[2022-11-24 15:43] LABS: Alanine Aminotransferase 22 U/L (0-33); Albumin Level 4.1 g/dL (3.5-5.2); Alkaline Phosphatase 129 U/L (35-105); Anion Gap 14.8 (5-19); Aspartate Amino Transferase 31 U/L (0-32); Blood Urea Nitrogen 20 mg/dL (8-23); Calcium 9.2 mg/dL (8.5-10.5); Carbon Dioxide 25 mmol/L (22-29); Chloride 106 mmol/L (98-107); Globulin 1.9 g/dL (1.3-4.6); Glucose 86 mg/dL (65-115); Osmolality Calculated 296 mOsm/kg (285-295); Potassium 3.8 mmol/L (3.5-5.1); Sodium 142 mmol/L (136-145); Total Bilirubin 0.4 mg/dL (0.15-1.2)
[2022-11-24 15:55] VITALS: BP 151/82; PULSE 74; RESP 23; O2SAT 97
[2022-11-24] MEDS: iohexol 350 mg/mL 500 mL Btl (per mL) IV (16:39)
[2022-11-24 16:51] LABS: Troponin 5 2HR 6.87 ng/L (0-10)
[2022-11-24 16:56] LABS: Troponin 5 2HR Delta -0.13 ABS# (0-10)
[2022-11-24 17:25] VITALS: BP 142/82; PULSE 100; RESP 13; O2SAT 98
--- NOTE | 2022-11-24 17:37 | ECG_ITS ---
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 Measurements Intervals [place] Rate: 79 P: 31 ND: 182 QRS: -20 QRSD: 80 T: 17 QT: 389 QTc: 448 Interpretive Statements SINUS RHYTHM LOW QRS VOLTAGE IN PRECORDIAL LEADS [QRS DEFLECTION < 1.0 mV IN CHEST LEADS] PATTERN CONSISTENT WITH PULMONARY DISEASE POSSIBLE RIGHT VENTRICULAR CONDUCTION DELAY [RSR (QR) IN V1/V2] Compared to ECG 11/24/2022 14:26:41 Myocardial infarct finding no longer present Electronically Signed On 11-25-2022 7:42:55 CDT by Edvin Gaming M.D. [id number]
[2022-11-24] MEDS: ketorolac 30 mg/mL INJ IVP (18:02)
== END 2022-11-24 18:25 | disposition home or self-care (01) ==
PROVIDERS: Emergency Provider Family Medicine; PCP Family Medicine
DX: R07.89 Other chest pain (principal); N18.9 Chronic kidney disease, unspecified
CPT/HCPCS: 36415; 71275; 80053; 84484; 85025; 93005; 96374; 99285; J1885; Q9967

== ENCOUNTER 2022-12-03 10:02 | Oncology outpatient (recurring) (ONCR) | payer MEDICARE, OTHER, SELFPAY ==
--- NOTE | 2022-12-03 11:08 | ONCRAD EPV_ITS ---
Radiation Oncology Follow-Up Note Patient Name: Yvonne Batres Date of : 1955 Date of Service: 12/03/2022 Attending Physician: Khoi Chong M.D. Yvonne Batres returned to my office this morning for a routinely scheduled post-radiotherapy follow-up appointment. She completed adjuvant breast radiotherapy in October for the management of a pathological stage IIA (T2N1a) breast cancer. She was evaluated by her primary care physician in December for a left breast mass. A diagnostic mammogram revealed an ovoid nodule in the lower-outer quadrant of the left breast measuring 2.3 cm x 2 cm. Ultrasonography confirmed a solid hypoechoic lesion in the left breast at the 3 o'clock position that was 10 cm from the nipple that measured 2.5 cm x 2.2 cm x 1.5 cm. A needle core biopsy obtained on February 05, 2022 diagnosed a poorly-differentiated invasive ductal carcinoma. A Breast Cancer Prognostic Profile demonstrated estrogen receptor positivity (100%), progesterone receptor positivity (15%). HER2 was negative by FISH (IHC 1+). The KI???67 was 18%. Left breast partial mastectomy with shave margins and left axillary sentinel lymph node biopsy was performed by Robbie Ge M.D. on March 22, 2022. The pathological analysis confirmed a 2.5 cm x 2 cm x 2 cm poorly-differentiated invasive ductal carcinoma with lymphovascular invasion described. All surgical margins were negative for malignancy. A total of 2 sentinel lymph nodes were harvested that harbored metastatic disease. The largest lymph node measured 2.5 cm without extranodal extension. The Oncotype DX Breast Recurrence Score was 33 (average absolute chemotherapy benefit was 15%). Adjuvant chemotherapy (Cytoxan and Taxotere) were administered a total of 4 cycles between the dates of June 07, 2022 through August 09, 2022. She has been prescribed an aromatase inhibitor (Arimidex). Daily radiotherapy was administered between the dates of September 13, 2022 through November 02, 2022. A prescribed dose of 50 Gy was delivered in 25 fractions encompassing 52 elapsed days. On review of systems, she did not report any breast complaints. In summary, Ms. Batres returned for a routine follow-up appointment. There were no sequelae from treatment. She will continue follow-up as scheduled with her medical oncologist. Signed by: Khoi Chong 12/03/2022 11:08:07 AM
== END 2022-12-03 23:59 | disposition home or self-care (01) ==
PROVIDERS: PCP Family Medicine; Visit Provider Radiology Radiation Oncology
DX: Z08 Encounter for follow-up examination after completed treatment for malignant neoplasm; Z85.3 Personal history of malignant neoplasm of breast; Z90.12 Acquired absence of left breast and nipple; Z92.3 Personal history of irradiation
CPT/HCPCS: 96523; 99024

== ENCOUNTER 2022-12-21 10:58 | Oncology outpatient (recurring) (ONCR) | payer MEDICARE, OTHER, SELFPAY ==
[2022-12-21 11:27] LABS: Basophils # 0.1 10^3/uL (0.0-0.1); Basophils % 1.3 %; Eosinophils # 0.4 10^3/uL (0.0-0.8); Eosinophils % 7.7 %; Hemoglobin 12.5 g/dL (11.5-15.3); Lymphocytes # 0.9 10^3/uL (0.8-4.8); Lymphocytes % 18.9 %; Mean Corpuscular HGB Conc 32.9 g/dL (30.0-36.0); Mean Corpuscular Hemoglobin 29.3 pg (28.0-34.0); Mean Corpuscular Volume 89.2 fl (81-99); Mean Platelet Volume 9.4 fL (7.4-10.4); Monocytes # 0.4 10^3/uL (0.2-0.9); Monocytes % 7.7 %; Neutrophils # 2.92 10^3/uL (1.8-7.7); Neutrophils % 64.2 %; Nucleated Red Blood Cells % 0 %; Platelet Count 170 10^3/cmm (130-400); Red Blood Count 4.26 10^6/uL (4.1-5.3); Red Cell Distribution Width 12.6 % (12.1-15.1); White Blood Count 4.6 10^3/uL (4.0-10.0)
[2022-12-21 11:28] VITALS: BP 149/95; PULSE 66; TEMP 37.1; O2SAT 99
[2022-12-21 12:02] LABS: Alanine Aminotransferase 15 U/L (0-33); Albumin Level 4.1 g/dL (3.5-5.2); Alkaline Phosphatase 120 U/L (35-105); Anion Gap 11.2 (5-19); Aspartate Amino Transferase 24 U/L (0-32); Blood Urea Nitrogen 22 mg/dL (8-23); Carbon Dioxide 27 mmol/L (22-29); Chloride 108 mmol/L (98-107); Globulin 1.8 g/dL (1.3-4.6); Glucose 77 mg/dL (65-115); Osmolality Calculated 296 mOsm/kg (285-295); Potassium 4.2 mmol/L (3.5-5.1); Sodium 142 mmol/L (136-145); Total Bilirubin 0.5 mg/dL (0.15-1.2); Total Protein 5.9 g/dL (6.6-8.7)
== END 2023-01-02 23:59 | disposition home or self-care (01) ==
PROVIDERS: Internal Medicine Hematology & Oncology; PCP Family Medicine; Visit Provider Radiology Radiation Oncology
DX: C50.812 Malignant neoplasm of overlapping sites of left female breast; Z17.0 Estrogen receptor positive status [ER+]; C77.8 Secondary and unspecified malignant neoplasm of lymph nodes of multiple regions; Z79.811 Long term (current) use of aromatase inhibitors; R73.09 Other abnormal glucose; R53.1 Weakness; R53.83 Other fatigue; Z95.828 Presence of other vascular implants and grafts
CPT/HCPCS: 36591; 80053; 85025; 99213

== ENCOUNTER 2023-01-03 13:24 | Outpatient (CLI) | payer MEDICARE, OTHER, SELFPAY ==
--- NOTE | 2023-01-03 14:07 | MM_ITS ---
WS: [id number] BILATERAL 3D TOMOSYNTHESIS DIGITAL DIAGNOSTIC MAMMOGRAPHY WITH CAD CLINICAL INFORMATION: HX OF BR CA COMPARISON: January 01, 2022 TECHNIQUE: Bilateral CC, MLO, and ML views. FINDINGS: The breasts are composed of heterogeneous fibroglandular density, which can limit the detection of sm all underlying mass lesions. Postoperative changes lumpectomy LEFT breast is new from previous with s urgical clips. Parenchymal scarring in the LEFT breast. Surgical clips LEFT axilla. Treatment-related changes LEFT breast. RIGHT breast is unchanged in appearance. Port-A-Cath partially visualized. A few incidental punctate and lucent centered calcifications. MM/[place] [id number] IMPRESSION: BI-RADS: 2-Benign FOLLOW UP: 1 Year Follow-up Recommend return to annual diagnostic mammography.
== END 2023-01-03 13:25 | disposition home or self-care (01) ==
PROVIDERS: PCP Family Medicine; Visit Provider Nurse Practitioner Family
DX: Z85.3 Personal history of malignant neoplasm of breast (principal)
CPT/HCPCS: 77062; G0279

== ENCOUNTER → 2023-01-26 14:01 | Outpatient (BNVA) | payer MEDICARE, OTHER, SELFPAY | PROVIDERS: PCP Family Medicine; Visit Provider Surgery | DX: Z95.828 Presence of other vascular implants and grafts (principal) | CPT/HCPCS: 36590; 99213 ==

== ENCOUNTER 2023-03-21 12:55 | Oncology outpatient (recurring) (ONCR) | payer MEDICARE, OTHER, SELFPAY ==
[2023-03-21 13:11] VITALS: BP 145/81; PULSE 73; RESP 18; TEMP 37.2; O2SAT 97
[2023-03-21 13:23] LABS: Basophils # 0.1 10^3/uL (0.0-0.1); Basophils % 1.5 %; Eosinophils # 0.2 10^3/uL (0.0-0.8); Eosinophils % 4.3 %; Hematocrit 39.6 % (37.0-47.0); Lymphocytes % 21.8 %; Mean Corpuscular HGB Conc 32.8 g/dL (30.0-36.0); Mean Corpuscular Hemoglobin 29.7 pg (28.0-34.0); Mean Corpuscular Volume 90.6 fl (81-99); Mean Platelet Volume 9.6 fL (7.4-10.4); Monocytes # 0.3 10^3/uL (0.2-0.9); Monocytes % 7.1 %; Neutrophils # 3.02 10^3/uL (1.8-7.7); Neutrophils % 65.1 %; Nucleated Red Blood Cells % 0 %; Platelet Count 167 10^3/cmm (130-400); Red Blood Count 4.37 10^6/uL (4.1-5.3); Red Cell Distribution Width 12.1 % (12.1-15.1); White Blood Count 4.6 10^3/uL (4.0-10.0)
[2023-03-21 13:41] LABS: Alanine Aminotransferase 14 U/L (0-33); Alkaline Phosphatase 118 U/L (35-105); Anion Gap 16.1 (5-19); Aspartate Amino Transferase 21 U/L (0-32); Blood Urea Nitrogen 21 mg/dL (8-23); Calcium 9.6 mg/dL (8.5-10.5); Carbon Dioxide 26 mmol/L (22-29); Chloride 101 mmol/L (98-107); Globulin 2.1 g/dL (1.3-4.6); Glomerular Filtration Rate 62.8 mL/min (90-130); Glucose 85 mg/dL (65-115); Osmolality Calculated 290 mOsm/kg (285-295); Potassium 4.1 mmol/L (3.5-5.1); Sodium 139 mmol/L (136-145); Total Bilirubin 0.5 mg/dL (0.15-1.2); Total Protein 6.1 g/dL (6.6-8.7)
== END 2023-04-04 23:59 | disposition home or self-care (01) ==
PROVIDERS: Nurse Practitioner Family; PCP Family Medicine; Visit Provider Radiology Radiation Oncology
DX: C77.8 Secondary and unspecified malignant neoplasm of lymph nodes of multiple regions; Z95.828 Presence of other vascular implants and grafts; C50.912 Malignant neoplasm of unspecified site of left female breast
CPT/HCPCS: 36415; 80053; 85025; 99214

== ENCOUNTER 2023-05-26 11:23 | Outpatient (CLI) | payer MEDICARE, OTHER, SELFPAY ==
--- NOTE | 2023-05-26 11:28 | XR_ITS ---
WS: [id number] XR sacroiliac jts m 3V [id number] REASON FOR EXAM: right SI pain FINDINGS: No fracture or focal bone lesion of the sacrum. Sacroiliac joints are well-defined without marginal erosions. No bridging or fusion. Thin well-defined sclerotic margins. IMPRESSION: No findings of sacroiliitis.
== END 2023-05-26 11:24 | disposition home or self-care (01) ==
PROVIDERS: PCP Family Medicine; Visit Provider Clinical Nurse Specialist Adult Health
DX: M54.31 Sciatica, right side (principal)
CPT/HCPCS: 72202

== ENCOUNTER 2023-07-18 16:08 | Emergency (ER) | payer MEDICARE, OTHER, SELFPAY ==
[2023-07-18 16:27] VITALS: BP 166/81; PULSE 100; RESP 18; TEMP 36.4; O2SAT 100; BMI 36.3
--- NOTE | 2023-07-18 16:42 | XRR_ITS ---
PROCEDURE INFORMATION: Exam: XR Left Knee Exam date and time: 07/18/2023 5:01 PM Age: 68 years old Clinical indication: Injury or trauma; Fall; Blunt trauma; Left; Prior surgery; Surgery date: 6+ months; Surgery type: Lt knee; Additional info: Fall/trauma TECHNIQUE: Imaging protocol: Radiologic exam of the left knee. Views: 3 views. COMPARISON: No relevant prior studies available. FINDINGS: Bones/joints: Status post total left knee replacement. No acute fracture or other acute osseous abnormality. Soft tissues: The soft tissues are unremarkable as demonstrated. XR/XR knee LT 3V* [id number] IMPRESSION: 1. Status post total left knee replacement. 2. No acute abnormality demonstrated.
--- NOTE | 2023-07-18 16:57 | W.ED.FALL ---
HPI - Fall General: Chief Complaint: Fall Stated Complaint: fell, laceration to chin, hurt left let Time Seen by Provider: 07/18/23 16:35 Source: patient Mode of arrival: ambulatory Limitations: no limitations History of Present Illness: Patient is a nice 68-year-old female who presents to ED today for evaluation following a fall that she sustained just a few hours ago when she accidentally tripped and fell. She states she was going down 1-2 stairs. She was carrying a crockpot and feels like the crockpot hit her in the mouth/lip sustaining a laceration. She then states she fell on her left knee. She has been ambulatory on the knee without difficulty or assistance. She denies striking her head or LOC. She has no headache or neck pain. Denying back pain. Tetanus is up-to-date. MD complaint: fall Onset (ago): hour(s) Fall from: standing Fall witnessed: no Place fall occurred: home Loss of consciousness: None Prolonged down time: no Symptoms prior to fall: none Context: tripped/slipped Location of injury: face Location of injury - extremities: Left: knee Associated symptoms-after fall: Denies chest pain, headache(s), lightheadedness or neck pain Review of Systems ENMT: Reports: other (lip laceration) Card: Denies: chest pain, palpitations, lightheadedness, syncope or pre-syncope Resp: Denies: dyspnea Musc: Reports: joint pain (L knee); Denies: neck pain, back pain, extremity pain or extremity swelling Skin/Breast: Reports: other (lip laceration) Neuro: Denies: headache(s), numbness in extremities, weakness in extremities or sensory changes PFS ED PFSH: Medical History Acne Bunion of right foot Bunion, left foot Chronic kidney disease Depression 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 Presence of other vascular implants and grafts Trigger finger of right hand Surgical History H/O: hysterectomy History of Achilles tendon repair History of bunionectomy 1971 and 1974 History of colonoscopy History of gastric bypass History of tonsillectomy and adenoidectomy 1960 History of total knee replacement Status post left breast lumpectomy Family History Father Clotting disorder CAD (coronary artery disease) Hyperlipidemia Stroke Mother Cancer Previous ovarian cancer Breast and bone cancer Other Chronic kidney disease (CKD) Diabetes Hypertension Psychiatric illness Denies family history of Dementia Suicide Anesthesia complication Bleeding disorder Lung disease Social History Smoking and tobacco/nicotine status: never used tobacco/nicotine Alcohol intake: current Alcohol intake frequency: holidays/special occasions only Physical Exam Const: COMMON NORMALS: no acute distress, average body habitus, patient oriented x3, no limitations, healthy appearing, alert and well nourished ORIENTATION/CONSCIOUSNESS: Yes awake, Yes oriented to person, Yes oriented to place and Yes oriented to time HENMT: COMMON NORMALS: normocephalic, atraumatic, TM's normal bilaterally and Normal external nose present HEAD & SCALP: normal to inspection, normocephalic and atraumatic NOSE: Normal external nose present NOSE IMAGE: 1. linear laceration/abrasion; wound edges approximate perfectly so no need for repair; this does not appear to be through and through from her wet adriane laceration TYMPANIC MEMBRANE: TM's normal bilaterally MOUTH: tongue normal and lip abnormal MOUTH IMAGES: 1. gaping lip laceration to wet adriane; measures about 1.5cm TEETH & GINGIVA: Yes other (no dental injury noted) THROAT: posterior oropharynx normal and tonsils normal Eye: GENERAL EYE: appearance normal, both eyes and all related structures and normal light reflex DIRECT OPHTHALMOSCOPY: Yes normal light reflex Neck/C-Spine: COMMON NORMALS: full ROM CERVICAL SPINE: No Cervical spine tenderness Resp: COMMON NORMALS: normal respiratory effort Cardio: COMMON NORMALS: regular rate and regular rhythm RATE: regular rate RHYTHM: regular rhythm Back/Pelvis: COMMON NORMALS: thoracic and lumbar spine normal to inspection, no thoracic nor lumbar tenderness and thoraco-lumbar ROM normal Extremity: COMMON NORMALS: full ROM and capillary refill normal GENERAL: Yes normal exam except as noted LEFT LOWER EXTREMITY: Yes knee joint (swelling/contusion/ecchymosis anteriolateral knee; full ROM) Left knee: Yes neurovascular exam (normal) Neuro: COMMON NORMALS: patient oriented x3, moves all extremities, no focal motor deficits and no sensory deficits noted SENSORIUM/ORIENTATION: Yes alert, Yes oriented to person, Yes oriented to place and Yes oriented to time Procedures Laceration Laceration 1: Site: lip Side (If applicable): right Size (cm): 1.5 Description: irregular Depth: simple, single layer Pre-repair: wound explored and irrigated extensively Skin layer closed with: other (fast absorbing gut) Size (cm): 5-0 Number of sutures: 2 Technique: simple, interrupted Course Vital Signs: Vital signs: Vital Signs Temperature 97.5 F L 07/18/23 16:27 Pulse Rate 100 07/18/23 16:27 Respiratory Rate 18 07/18/23 16:27 Blood Pressure 166/81 07/18/23 16:27 Pulse Oximetry 100 07/18/23 16:27 MDM - Fall Medical Decision Making XR of the knee negative. Lip laceration repaired with 2 fast-absorbing sutures. Recommend soft food diet over the next few days. Rinsing her mouth with water after eating. She will be placed on antibiotics. Return ED precautions given. Lab Data Radiology Impressions Knee X-Ray 07/18/23 16:42 IMPRESSION: 1. Status post total left knee replacement. 2. No acute abnormality demonstrated. All radiology interpretation(s) finalized by discharge Discharge Plan Discharge Patient Disposition: Home Clinical Impression: Laceration of lip Qualifiers: Encounter type: initial encounter Qualified Code(s): S01.511A - Laceration without foreign body of lip, initial encounter Fall Qualifiers: Encounter type: initial encounter Qualified Code(s): W19.XXXA - Unspecified fall, initial encounter Contusion of left knee Qualifiers: Encounter type: initial encounter Qualified Code(s): S80.02XA - Contusion of left knee, initial encounter Condition: Stable Prescriptions: New amoxicillin 500 mg capsule 500 mg PO TID 5 Days Qty: 15 0RF No Action multivitamin [Daily Multi-Vitamin] Tablet 1 tab PO BID ICaps AREDS2 (copper citrate) 250 mg-200 unit -12.5 mg-1 mg tablet,chewable 1 tab PO BID calcium citrate 250 mg calcium tablet 250 mg PO TID vitamin B complex Tablet 1 tab PO DAILY acetaminophen [Tylenol Arthritis Pain] 650 mg tablet extended release 650 mg PO Q8H PRN (Reason: Pain) TheraTears 0.25 % dropperette 1 drp ophthalmic (eye) DAILY anastrozole 1 mg tablet 1 mg PO DAILY Qty: 30 6RF prednisone 20 mg tablet 20 mg PO DAILY Qty: 7 0RF minocycline 50 mg capsule 50 mg PO BID Qty: 60 10RF citalopram 20 mg tablet 20 mg PO DAILY Qty: 30 3RF mirtazapine 15 mg tablet See Rx Instructions .ROUTE .COMPLEX Qty: 30 3RF Dose Instruction: TAKE 1 TABLET BY MOUTH ONCE DAILY AT NIGHT Rx Instructions: TAKE 1 TABLET BY MOUTH ONCE DAILY AT NIGHT omeprazole 40 mg capsule,delayed release(DR/EC) See Rx Instructions .ROUTE .COMPLEX Qty: 90 2RF Dose Instruction: Take 1 capsule by mouth in the morning Rx Instructions: Take 1 capsule by mouth in the morning Discharge Orders: Discharge ED (Routine); Ordered 07/18/23 Ordered By: Elysia Palma Referrals: Satnam Muro MD [Primary Care Provider] - Activity Restrictions/Additional Instructions: As we discussed the sutures to your lip are absorbable and should absorb over the next week. Soft food diet and make sure to rinse your mouth out with water after eating. X-ray of your knee was negative. You may ice and elevate to help with swelling. You may use [id number] analgesics for discomfort. Please follow-up with your primary care provider this week if symptoms do not seem to be improving. Coding Level of Care Code ED Bed Control Specialist for Radha Trujillo
== END 2023-07-18 17:33 | disposition home or self-care (01) ==
PROVIDERS: Emergency Provider Physician Assistant; PCP Family Medicine
DX: S01.511A Laceration without foreign body of lip, initial encounter (principal); S80.02XA Contusion of left knee, initial encounter; N18.9 Chronic kidney disease, unspecified; Z85.3 Personal history of malignant neoplasm of breast; Z92.21 Personal history of antineoplastic chemotherapy; Z92.3 Personal history of irradiation; W01.198A Fall on same level from slipping, tripping and stumbling with subsequent striking against other object, initial encounter
CPT/HCPCS: 73562; 99283

== ENCOUNTER 2023-07-22 14:32 | Emergency (ER) | payer MEDICARE, OTHER, SELFPAY ==
[2023-07-22 14:51] VITALS: BP 152/89; PULSE 84; RESP 18; TEMP 36.6; O2SAT 98; BMI 36.3
--- NOTE | 2023-07-22 15:04 | ED_ITS ---
HPI - Extremity Problem General: Chief complaint: Extremity Injury, Lower Stated complaint: hurt leg, left Time Seen by Provider: 07/22/23 14:53 Source: patient Mode of arrival: ambulatory Limitations: no limitations History of Present Illness: Patient is a nice 68-year-old female who presents to ED today with a complaint of swelling and bruising to her left lower extremity. I personally saw patient a few days ago following a trip and fall down a flight of stairs. She had contused her left knee at that point. X-rays were performed which were negative. Patient has been able to easily ambulate on the extremity and does not complain of pain. Her worry is the swelling and bruising and thinks she might have a blood clot. Of note, her lip laceration from previous visit is healing nicely. No chest pain, SOB, or difficulty breathing. MD Complaint: extremity swelling Onset (ago): day(s) Location: left and lower extremity Associated symptoms: Reports no associated symptoms; Deny chest pain or fever(s) Context: other (recent injury to left knee) Review of Systems Const: Denies: fever(s), chills, body aches, fatigue or malaise Card: Denies: chest pain, palpitations, lightheadedness, syncope or pre- syncope Resp: Denies: dyspnea Musc: Reports: extremity swelling (L lower extremity ) and joint swelling (L knee); Denies: neck pain, back pain, extremity pain or joint pain Neuro: Denies: numbness in extremities, weakness in extremities, sensory changes or difficulty walking [facility] ED PFSH: Medical History Acne Bunion of right foot Bunion, left foot Chronic kidney disease Depression 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 Presence of other vascular implants and grafts Trigger finger of right hand Surgical History H/O: hysterectomy History of Achilles tendon repair History of bunionectomy 1971 and 1974 History of colonoscopy History of gastric bypass History of tonsillectomy and adenoidectomy 1960 History of total knee replacement Status post left breast lumpectomy Family History Father Clotting disorder CAD (coronary artery disease) Hyperlipidemia Stroke Mother Cancer Previous ovarian cancer Breast and bone cancer Other Chronic kidney disease (CKD) Diabetes Hypertension Psychiatric illness Denies family history of Dementia Suicide Anesthesia complication Bleeding disorder Lung disease Social History Smoking and tobacco/nicotine status: never used tobacco/nicotine Alcohol intake: current Alcohol intake frequency: holidays/special occasions only Physical Exam Const: COMMON NORMALS: no acute distress, patient oriented x3, no limitations, alert and well nourished Resp: COMMON NORMALS: normal respiratory effort and clear to auscultation bilaterally AUSCULTATION: clear to auscultation bilaterally Cardio: COMMON NORMALS: regular rate and regular rhythm RATE: regular rate RHYTHM: regular rhythm Extremity: COMMON NORMALS: full ROM and capillary refill normal GENERAL: Yes normal exam except as noted OTHER: swelling to anterior knee joint/contusion-full painless ROM; she has scattered ecchymosis around this area with spread distally; L LE is slightly swollen when compared to R; I think swelling/ecchymosis most likely is just gravity pulling downward but will order US to rule out thrombus; she has no bony tenderness anywhere to the extremity Neuro: COMMON NORMALS: patient oriented x3, moves all extremities, no focal motor deficits and no sensory deficits noted SENSORIUM/ORIENTATION: Yes alert Course Vital Signs: Vital signs: Vital Signs Temperature 97.9 F 07/22/23 14:51 Pulse Rate 84 07/22/23 14:51 Respiratory Rate 18 07/22/23 14:51 Blood Pressure 152/89 07/22/23 14:51 Pulse Oximetry 98 07/22/23 14:51 Oxygen Delivery Me thod Room Air 07/22/23 14:51 MDM - Extremity (Nontraumatic) Medical Decision Making US negative for DVT. She has no bony tenderness anywhere and is ambulatory without difficulty. She will be allowed discharge. Medical Records I reviewed the patient's medical records. All radiology interpretation(s) finalized by discharge Discharge Plan Discharge Patient Disposition: Home Clinical Impression: Swelling of left lower extremity Condition: Stable Prescriptions: No Action multivitamin [Daily Multi-Vitamin] Tablet 1 tab PO BID ICaps AREDS2 (copper citrate) 250 mg-200 unit -12.5 mg-1 mg tablet,chewable 1 tab PO BID calcium citrate 250 mg calcium tablet 250 mg PO TID vitamin B complex Tablet 1 tab PO DAILY acetaminophen [Tylenol Arthritis Pain] 650 mg tablet extended release 650 mg PO Q8H PRN (Reason: Pain) TheraTears 0.25 % dropperette 1 drp ophthalmic (eye) DAILY anastrozole 1 mg tablet 1 mg PO DAILY Qty: 30 6RF prednisone 20 mg tablet 20 mg PO DAILY Qty: 7 0RF minocycline 50 mg capsule 50 mg PO BID Qty: 60 10RF citalopram 20 mg tablet 20 mg PO DAILY Qty: 30 3RF mirtazapine 15 mg tablet See Rx Instructions .ROUTE .COMPLEX Qty: 30 3RF Dose Instruction: TAKE 1 TABLET BY MOUTH ONCE DAILY AT NIGHT Rx Instructions: TAKE 1 TABLET BY MOUTH ONCE DAILY AT NIGHT omeprazole 40 mg capsule,delayed release(DR/EC) See Rx Instructions .ROUTE .COMPLEX Qty: 90 2RF Dose Instruction: Take 1 capsule by mouth in the morning Rx Instructions: Take 1 capsule by mouth in the morning amoxicillin 500 mg capsule 500 mg PO TID 5 Days Qty: 15 0RF Discharge Orders: Discharge ED (Routine); Ordered 07/22/23 Ordered By: Elysia Palma Referrals: Satnam Muro MD [Primary Care Provider] - Coding Level of Care Code ED Instrument Repairer Steam Plant for Radha Trujillo
--- NOTE | 2023-07-22 15:04 | USR_ITS ---
PROCEDURE INFORMATION: Exam: US Duplex Left Lower Extremity Veins, Limited Exam date and time: 07/22/2023 3:27 PM Age: 68 years old Clinical indication: Pain; Leg, lower; Left; Additional info: Swelling following injury/ecchymosis TECHNIQUE: Imaging protocol: Real-time duplex ultrasound of the left extremity with 2-D gonzalez scale, color Doppler flow and spectral waveform analysis including responses to compression and other maneuvers (when performed) with image documentation. Limited exam focused on the left lower extremity veins. COMPARISON: CR (LOW EX, ) 07/18/2023 5:01 PM FINDINGS: Left deep veins: Unremarkable. The common femoral, femoral, proximal profunda femoral and popliteal veins are patent without thrombus. Normal Doppler waveforms. Normal compressibility and augmentation response. Superficial veins: Unremarkable. Saphenofemoral junction is patent without thrombus. Soft tissues: Unremarkable. US/[place] [id number] IMPRESSION: No evidence of deep vein thrombosis.
== END 2023-07-22 16:11 | disposition home or self-care (01) ==
PROVIDERS: Emergency Provider Physician Assistant; PCP Family Medicine
DX: M79.89 Other specified soft tissue disorders (principal); N18.9 Chronic kidney disease, unspecified; Z85.3 Personal history of malignant neoplasm of breast; Z92.21 Personal history of antineoplastic chemotherapy; Z92.3 Personal history of irradiation
CPT/HCPCS: 93971; 99284

== ENCOUNTER 2023-08-10 14:54 | Oncology outpatient (recurring) (ONCR) | payer MEDICARE, OTHER, SELFPAY ==
[2023-08-10 15:09] VITALS: BP 131/80; PULSE 102; RESP 16; TEMP 37.1; O2SAT 96
[2023-08-10 15:23] LABS: Basophils # 0.1 10^3/uL (0.0-0.1); Basophils % 1.2 %; Eosinophils # 0.2 10^3/uL (0.0-0.8); Eosinophils % 3.3 %; Hematocrit 37.6 % (36-47); Lymphocytes % 17.5 %; Mean Corpuscular HGB Conc 32.7 g/dL (30-55); Mean Corpuscular Hemoglobin 30.1 pg (27-33); Mean Corpuscular Volume 92.2 fl (85-98); Mean Platelet Volume 9.6 fL (7.4-10.4); Monocytes # 0.3 10^3/uL (0.2-0.9); Neutrophils # 4.26 10^3/uL (1.8-7.7); Neutrophils % 72.8 %; Nucleated Red Blood Cells % 0 %; Platelet Count 234 10^3/cmm (157-399); Red Blood Count 4.08 10^6/uL (3.85-5.65); Red Cell Distribution Width 12.1 % (12.1-15.1); White Blood Count 5.84 10^3/uL (3.29-11.43)
[2023-08-10 15:36] LABS: Alanine Aminotransferase 13 U/L (0-33); Albumin Level 4.2 g/dL (3.5-5.2); Alkaline Phosphatase 147 U/L (35-105); Aspartate Amino Transferase 24 U/L (0-32); Blood Urea Nitrogen 26 mg/dL (8-23); Calcium 9.7 mg/dL (8.5-10.5); Carbon Dioxide 26 mmol/L (22-29); Chloride 100 mmol/L (98-107); Globulin 2.1 g/dL (1.3-4.6); Glomerular Filtration Rate 49.7 mL/min (90-130); Glucose 215 mg/dL (65-115); Osmolality Calculated 297 mOsm/kg (285-295); Sodium 138 mmol/L (136-145); Total Bilirubin 0.6 mg/dL (0.15-1.2); Total Protein 6.3 g/dL (6.6-8.7)
== END 2023-09-04 23:59 | disposition home or self-care (01) ==
PROVIDERS: Internal Medicine; PCP Family Medicine; Visit Provider Radiology Radiation Oncology
DX: Z51.0 Encounter for antineoplastic radiation therapy (principal); C50.812 Malignant neoplasm of overlapping sites of left female breast; Z17.0 Estrogen receptor positive status [ER+]; C77.8 Secondary and unspecified malignant neoplasm of lymph nodes of multiple regions; Z79.811 Long term (current) use of aromatase inhibitors
CPT/HCPCS: 36415; 80053; 85025; 99214

== ENCOUNTER → 2023-08-15 15:23 | Outpatient (BNVA) | payer MEDICARE, OTHER, SELFPAY | PROVIDERS: PCP Family Medicine; Visit Provider Family Medicine | DX: R73.09 Other abnormal glucose (principal); M79.89 Other specified soft tissue disorders; M76.60 Achilles tendinitis, unspecified leg; S01.511A Laceration without foreign body of lip, initial encounter; G47.33 Obstructive sleep apnea (adult) (pediatric) | CPT/HCPCS: 83036 ==

== ENCOUNTER 2023-09-02 08:29 | Outpatient (CLI) | payer MEDICARE, OTHER, SELFPAY ==
--- NOTE | 2023-09-02 08:45 | NM_ITS ---
WS: [id number] NUCLEAR MEDICINE BONE SCAN Radiopharmaceutical: 25.3 mCi Tc-99m MDP IV Injection site: Antecubital Postinjection imaging delay: 1 hr CLINICAL INFORMATION: bone met follow-up COMPARISON: None. FINDINGS: Bone lesions: There are no osseous lesions suspicious for metastatic disease. Soft tissue contours: Normal. Kidneys: Normal. Other findings: Postoperative changes bilateral TKAs. Degenerative type uptake both AC joints. IMPRESSION: No evidence of osseous metastatic disease.
== END 2023-09-02 08:30 | disposition home or self-care (01) ==
LOC: RAD 08:30
PROVIDERS: PCP Family Medicine; Visit Provider Internal Medicine
DX: C50.912 Malignant neoplasm of unspecified site of left female breast (principal)
CPT/HCPCS: 78306; A9561

== ENCOUNTER 2024-01-18 09:08 | Outpatient (CLI) | payer MEDICARE, OTHER, SELFPAY ==
--- NOTE | 2024-01-18 09:15 | MM_ITS ---
WS: [id number] DIAGNOSTIC BILATERAL DIGITAL BREAST TOMOSYNTHESIS MAMMOGRAPHY WITH CAD HISTORY: observation COMPARISON: None available. TECHNIQUE: Bilateral craniocaudad, mediolateral oblique, and mediolateral views are submitted with to chapito and MORGAN. Computer aided detection utilized. Breast composition: The breasts are heterogeneously dense, which may obscure small masses. Prior lump ectomy site in the posterior LEFT breast. Prior LEFT axillary lymph node dissection. Scattered fibrog landular densities and calcifications are stable over multiple prior years. MM/[place] [id number] IMPRESSION: BI-RADS: 2-Benign FOLLOW UP: 1 Year Follow-up
== END 2024-01-18 09:09 | disposition home or self-care (01) ==
LOC: RAD 09:08
PROVIDERS: PCP Family Medicine; Visit Provider Internal Medicine
DX: C50.912 Malignant neoplasm of unspecified site of left female breast (principal); R92.323 Mammographic fibroglandular density, bilateral breasts; Z98.890 Other specified postprocedural states
CPT/HCPCS: 77062; G0279

== ENCOUNTER 2024-02-16 13:30 | Oncology outpatient (recurring) (ONCR) | payer OTHER, SELFPAY ==
[2024-02-16 14:01] LABS: Basophils # 0.1 10^3/uL (0.0-0.1); Basophils % 1.7 %; Eosinophils # 0.2 10^3/uL (0.0-0.8); Eosinophils % 3.5 %; Hematocrit 38.9 % (36-47); Lymphocytes # 1.1 10^3/uL (0.8-4.8); Lymphocytes % 26.4 %; Mean Corpuscular HGB Conc 33.4 g/dL (30-55); Mean Corpuscular Hemoglobin 30.4 pg (27-33); Mean Corpuscular Volume 91.1 fl (85-98); Mean Platelet Volume 9.6 fL (7.4-10.4); Monocytes # 0.3 10^3/uL (0.2-0.9); Monocytes % 7.1 %; Neutrophils # 2.59 10^3/uL (1.8-7.7); Neutrophils % 61.1 %; Nucleated Red Blood Cells % 0 %; Platelet Count 184 10^3/cmm (157-399); Red Blood Count 4.27 10^6/uL (3.85-5.65); White Blood Count 4.24 10^3/uL (3.29-11.43)
[2024-02-16 14:24] LABS: Alanine Aminotransferase 16 U/L (0-33); Albumin Level 3.9 g/dL (3.5-5.2); Alkaline Phosphatase 150 U/L (35-105); Aspartate Amino Transferase 21 U/L (0-32); Blood Urea Nitrogen 20 mg/dL (8-23); Calcium 9.2 mg/dL (8.5-10.5); Carbon Dioxide 28 mmol/L (22-29); Chloride 105 mmol/L (98-107); Globulin 2.1 g/dL (1.3-4.6); Glomerular Filtration Rate 62.6 mL/min (90-130); Glucose 100 mg/dL (65-115); Osmolality Calculated 297 mOsm/kg (285-295); Sodium 142 mmol/L (136-145); Total Bilirubin 0.5 mg/dL (0.15-1.2)
[2024-02-16 17:41] LABS: CA 15-3 21.8 U/mL (0-25)
[2024-02-18 04:15] LABS: CA 27.29 16 U/mL (<38)
== END 2024-03-04 23:59 | disposition home or self-care (01) ==
PROVIDERS: Internal Medicine; PCP Family Medicine; Visit Provider Nurse Practitioner Family
DX: C50.912 Malignant neoplasm of unspecified site of left female breast (principal)
CPT/HCPCS: 36415; 80053; 85025; 86300

== ENCOUNTER 2024-02-23 12:01 | Outpatient (CLI) | payer OTHER, MEDICARE, SELFPAY ==
--- NOTE | 2024-02-23 12:15 | XRR_ITS ---
PROCEDURE INFORMATION: Exam: XR Bilateral Hips Exam date and time: 02/23/2024 12:38 PM Age: 68 years old Clinical indication: Hip pain; Bilateral; Patient HX: HX of breast cancer; Additional info: Bilateral hip pain TECHNIQUE: Imaging protocol: Radiologic exam of the bilateral hips. Views: 2 views of hips with pelvis when performed. COMPARISON: NM bone scan whole body* [id number] 09/02/2023 8:45 AM FINDINGS: Bones/joints: Unremarkable. No acute fracture. Soft tissues: Unremarkable. XR/XR hip BI 3-4V wo/w pel [id number] IMPRESSION: No acute findings.
== END 2024-02-23 12:02 | disposition home or self-care (01) ==
PROVIDERS: PCP Family Medicine; Visit Provider Nurse Practitioner Family
DX: M25.551 Pain in right hip (principal); M25.552 Pain in left hip
CPT/HCPCS: 73522

== ENCOUNTER 2024-08-08 13:33 | Outpatient (RCR) | payer MEDICARE, OTHER, SELFPAY | END 2024-09-04 23:59 | disposition home or self-care (01) | LOC: SPT 13:33 | PROVIDERS: Visit Provider Family Medicine | DX: M46.1 Sacroiliitis, not elsewhere classified (principal) | CPT/HCPCS: 97110; 97161 ==

== ENCOUNTER 2024-08-22 12:29 | Oncology outpatient (recurring) (ONCR) | payer MEDICARE, OTHER, SELFPAY ==
[2024-08-22 12:51] LABS: Basophils # 0.1 10^3/uL (0.0-0.1); Basophils % 1.4 %; Eosinophils # 0.2 10^3/uL (0.0-0.8); Eosinophils % 3.9 %; Hematocrit 39.3 % (36-47); Lymphocytes # 1.2 10^3/uL (0.8-4.8); Lymphocytes % 26.4 %; Mean Corpuscular HGB Conc 32.6 g/dL (30-55); Mean Corpuscular Hemoglobin 29.4 pg (27-33); Mean Corpuscular Volume 90.3 fl (85-98); Mean Platelet Volume 9.4 fL (7.4-10.4); Monocytes # 0.3 10^3/uL (0.2-0.9); Monocytes % 7.1 %; Neutrophils # 2.66 10^3/uL (1.8-7.7); Nucleated Red Blood Cells % 0 %; Platelet Count 190 10^3/cmm (157-399); Red Blood Count 4.35 10^6/uL (3.85-5.65); Red Cell Distribution Width 11.8 % (12.1-15.1); White Blood Count 4.36 10^3/uL (3.29-11.43)
[2024-08-22 13:12] LABS: Alanine Aminotransferase 20 U/L (0-33); Albumin Level 4.1 g/dL (3.5-5.2); Alkaline Phosphatase 126 U/L (35-105); Anion Gap 11.2 (5-19); Aspartate Amino Transferase 29 U/L (0-32); Blood Urea Nitrogen 19 mg/dL (8-23); Calcium 9.6 mg/dL (8.5-10.5); Carbon Dioxide 28 mmol/L (22-29); Chloride 104 mmol/L (98-107); Creatinine Clr Calc Pharmacy 81.5242; Glomerular Filtration Rate 71.5 mL/min (90-130); Glucose 104 mg/dL (65-115); Osmolality Calculated 291 mOsm/kg (285-295); Potassium 4.2 mmol/L (3.5-5.1); Sodium 139 mmol/L (136-145); Total Bilirubin 0.6 mg/dL (0.15-1.2); Total Protein 6.1 g/dL (6.6-8.7)
== END 2024-09-04 23:59 | disposition home or self-care (01) ==
PROVIDERS: Visit Provider Nurse Practitioner Family
DX: C50.912 Malignant neoplasm of unspecified site of left female breast (principal)
CPT/HCPCS: 36415; 80053; 85025; 99214

== ENCOUNTER 2024-09-05 06:30 | Outpatient (RCR) | payer MEDICARE, OTHER, SELFPAY | END 2024-10-05 23:59 | disposition home or self-care (01) | LOC: SPT 06:30 | PROVIDERS: Visit Provider Family Medicine | DX: M46.1 Sacroiliitis, not elsewhere classified (principal) | CPT/HCPCS: 97110 ==

== ENCOUNTER → 2024-11-05 16:08 | Outpatient (BNVA) | payer MEDICARE, SELFPAY | PROVIDERS: PCP Family Medicine; Visit Provider Family Medicine | DX: R30.0 Dysuria (principal) | CPT/HCPCS: 81000; 87077; 87086; 87184 ==

== ENCOUNTER 2024-12-31 12:33 | Oncology outpatient (recurring) (ONCR) | payer MEDICARE, SELFPAY ==
--- NOTE | 2024-12-31 13:30 | XR_ITS ---
WS: [id number] SCREENING DEXA SCAN myVBO CLINICAL INFORMATION: high risk medication COMPARISON: 2022 FINDINGS: The L1-L4 bone mineral density measures 1.356 g/cm2. This corresponds to a T score score of 1.5 and Z score of 2.0. Left femoral neck bone mineral density measures 1.134 g/cm2. This corresponds to a T score of 1.0 and Z score of 1.5. Right femoral neck bone mineral density measures 1.118 g/cm2. This corresponds to a T score 0.9of and Z score of 1.4. Mean femoral neck bone mineral density measures 1.126 g/cm2. This corresponds to a T score of 0.9 and Z score of 1.5. XR/XR DEXA axial skeleton* [id number] IMPRESSION: Normal bone mineralization. Patient's FRAX calculated 10 year probability for major osteoporotic fracture i s 6.1% and osteoporotic hip fracture is 0.2%.
== END 2025-01-02 23:59 | disposition home or self-care (01) ==
LOC: RAD 12:38 → ONCMED 01-01 09:15
PROVIDERS: PCP Family Medicine; Visit Provider Internal Medicine
DX: C50.912 Malignant neoplasm of unspecified site of left female breast (principal); Z51.0 Encounter for antineoplastic radiation therapy; C50.812 Malignant neoplasm of overlapping sites of left female breast; Z17.0 Estrogen receptor positive status [ER+]; C77.8 Secondary and unspecified malignant neoplasm of lymph nodes of multiple regions; Z79.811 Long term (current) use of aromatase inhibitors
CPT/HCPCS: 77080

== ENCOUNTER 2025-02-20 11:19 | Oncology outpatient (recurring) (ONCR) | payer MEDICARE, SELFPAY ==
[2025-02-20 11:47] LABS: Basophils # 0.1 10^3/uL (0.0-0.1); Basophils % 1.1 %; Eosinophils # 0.2 10^3/uL (0.0-0.8); Eosinophils % 4.2 %; Lymphocytes # 1.5 10^3/uL (0.8-4.8); Lymphocytes % 26.8 %; Mean Corpuscular HGB Conc 33.1 g/dL (30-55); Mean Corpuscular Hemoglobin 29.9 pg (27-33); Mean Corpuscular Volume 90.5 fl (85-98); Mean Platelet Volume 9.5 fL (7.4-10.4); Monocytes # 0.2 10^3/uL (0.2-0.9); Monocytes % 4.4 %; Neutrophils # 3.44 10^3/uL (1.8-7.7); Neutrophils % 63.1 %; Nucleated Red Blood Cells % 0 %; Platelet Count 182 10^3/cmm (157-399); Red Blood Count 4.31 10^6/uL (3.85-5.65); Red Cell Distribution Width 12.1 % (12.1-15.1); White Blood Count 5.45 10^3/uL (3.29-11.43)
[2025-02-20 12:03] LABS: Alanine Aminotransferase 13 U/L (0-33); Alkaline Phosphatase 118 U/L (35-105); Aspartate Amino Transferase 18 U/L (0-32); Blood Urea Nitrogen 23 mg/dL (8-23); Calcium 9.4 mg/dL (8.5-10.5); Carbon Dioxide 26 mmol/L (22-29); Chloride 106 mmol/L (98-107); Globulin 2.1 g/dL (1.3-4.6); Glomerular Filtration Rate 62.5 mL/min (90-130); Glucose 141 mg/dL (65-115); Osmolality Calculated 304 mOsm/kg (285-295); Sodium 144 mmol/L (136-145); Total Bilirubin 0.4 mg/dL (0.15-1.2); Total Protein 6.1 g/dL (6.6-8.7)
== END 2025-03-04 23:59 | disposition home or self-care (01) ==
PROVIDERS: Nurse Practitioner; PCP Family Medicine; Visit Provider Internal Medicine
DX: C50.912 Malignant neoplasm of unspecified site of left female breast (principal); Z17.0 Estrogen receptor positive status [ER+]; Z79.811 Long term (current) use of aromatase inhibitors; Z79.899 Other long term (current) drug therapy; Z87.891 Personal history of nicotine dependence
CPT/HCPCS: 36415; 80053; 85025; 99214

== ENCOUNTER 2025-02-21 11:01 | Outpatient (CLI) | payer OTHER, SELFPAY ==
--- NOTE | 2025-02-21 11:30 | MM_ITS ---
WS: [id number] BILATERAL 3D TOMOSYNTHESIS DIGITAL SCREENING MAMMOGRAPHY WITH CAD CLINICAL INFORMATION: hx breast cancer HISTORY: Screening mammogram. No current complaints. COMPARISON: 2023 TECHNIQUE: Bilateral CC and MLO views. FINDINGS: The breasts are composed of heterogeneous fibroglandular density tissue, which can limit the detection of small underlying mass lesions. Treatment-related changes LEFT breast with prior lumpectomy and surgical clips. LEFT axillary lymph node dissection with surgical clips. Incidental punctate calcifications. No suspicious mass, asymmetry, calcifications, or architectural distortion. No evidence of malignancy. MM/MM diag tomosynthesis [id number] IMPRESSION: DENSITY: The breasts are heterogeneously dense, which may obscure small masses. BI-RADS: 2 - Benign FOLLOW UP: 1 Year Follow-up Recommend return to annual diagnostic mammography.
== END 2025-02-21 11:02 | disposition home or self-care (01) ==
LOC: RAD 11:03
PROVIDERS: PCP Family Medicine; Visit Provider Nurse Practitioner
DX: Z08 Encounter for follow-up examination after completed treatment for malignant neoplasm (principal); Z85.3 Personal history of malignant neoplasm of breast
CPT/HCPCS: 77062; G0279

== ENCOUNTER 2025-04-29 13:02 | Outpatient (CLI) | payer MEDICARE, SELFPAY ==
--- NOTE | 2025-04-29 | XR_ITS ---
Exam: XR cervical spine min 6V [id number] Date/Time of Exam: 04/29/2025 1:18 PM Reason For Exam: Left radicular pains DLP: No acute fracture. There is straightening. There is very slight degenerative anterolisthesis of C4 on C5. Moderate facet arthropathy at all levels. Slight spondylosis. No significant flexion or extension instability seen. Narrowing of the bony neural foramina on the RIGHT at C4-5. Possible narrowing of the LEFT neural foramina at C4-5, C5-6 and C6-7. Left-sided carotid artery calcifications. IMPRESSION: 1. Slight degenerative anterolisthesis of C3-4 on C5. No significant flexion or extension instability. 2. Moderate degenerative changes and straightening. 3. Bony neural foramina narrowing noted bilaterally as discussed above. MTDD
--- NOTE | 2025-04-29 13:07 | XR_ITS ---
WS: [id number] Exam: XR foot RT min 3V* [id number] Date/Time of Exam: 04/29/2025 1:18 PM Reason For Exam: Right heel pain No acute fracture. Postop changes of the first metatarsal secondary to bunion repair. There is thickening and calcification of the Achilles tendon at the calcaneal attachment. This might reflect chronic tendinitis. Small plantar heel spur noted. XR/XR foot RT min 3V* [id number] IMPRESSION: 1. No fracture. 2. Thickening and calcification of the lower Achilles tendon which might reflec t chronic Achilles tendinitis. 3. Postop changes of the first metatarsal. Degenerative changes in the midfoot joints.
--- NOTE | 2025-04-29 15:32 | XR_ITS ---
Exam: XR foot RT min 3V* [id number] Date/Time of Exam: 04/29/2025 1:18 PM Reason For Exam: Right heel pain No acute fracture. Postop changes of the first metatarsal secondary to bunion repair. There is thickening and calcification of the Achilles tendon at the calcaneal attachment. This might reflect chronic tendinitis. Small plantar heel spur noted. IMPRESSION: 1. No fracture. 2. Thickening and calcification of the lower Achilles tendon which might reflect chronic Achilles tendinitis. 3. Postop changes of the first metatarsal. Degenerative changes in the midfoot joints. MTDD
== END 2025-04-29 13:03 | disposition home or self-care (01) ==
PROVIDERS: PCP Family Medicine; Visit Provider Family Medicine
DX: M54.12 Radiculopathy, cervical region (principal); M19.071 Primary osteoarthritis, right ankle and foot; M67.873 Other specified disorders of tendon, right ankle and foot; R93.6 Abnormal findings on diagnostic imaging of limbs; M77.31 Calcaneal spur, right foot; M47.892 Other spondylosis, cervical region; M48.02 Spinal stenosis, cervical region; I65.22 Occlusion and stenosis of left carotid artery
CPT/HCPCS: 72052; 73630

== ENCOUNTER → 2025-05-01 09:25 | Outpatient (BNVA) | payer OTHER, SELFPAY | PROVIDERS: PCP Family Medicine; Visit Provider Podiatrist Foot & Ankle Surgery | DX: M79.671 Pain in right foot (principal); S86.019A Strain of unspecified Achilles tendon, initial encounter; S86.011A Strain of right Achilles tendon, initial encounter; M77.31 Calcaneal spur, right foot; X58.XXXA Exposure to other specified factors, initial encounter | CPT/HCPCS: 73630 ==

== ENCOUNTER 2025-05-05 23:36 | Emergency (ER) | payer MEDICARE, SELFPAY ==
--- OUTSIDE RECORDS SUMMARY | 2025-01-04 16:00 | XMS_ITS ---
Author Organization [facility] Address [address] [place], [place] [id number] Care Team Providers Care Organizational Development Manager Name Role Phone SAVAGE PAK MD Primary Care Provider Unavailabl e Jillian Gross Unavailable Migration, Provider Unavailable Unavailable Allergies Allergen (clinical drug ingredient) Drug/Non Drug Allergy documented on EMR Reaction Allergy Type Onset Date Status morphine Morphine stomach upset Drug Allergy Act april metformin metFORMIN diarrhea Drug Allergy Active REASON FOR VISIT [facility] Conversion Encounter Medications Medication SIG (Take, Route, Frequency, Duration) Notes Start Date End Date Status Triamterene-HCTZ 75-50 MG 1 tab(s) orally once a day Active Trulicity 1.5 MG/0.5 ML DIRECTED SUBCUTANEOUSLY ONCE A WEEK *Please review and pick [facility]. If intended option is not shown, discontinue and re-order from Quick Search* Active metFORMIN HCl 500 MG 2 tab(s) orally daily Active Metoprolol Tartrate 100 MG 1 tab(s) orally 2 times a day Active Aspirin 81 MG 1 TAB(S) ORALLY ONCE A DAY *Please review and pick correct [facility]ulati [facility]. If intended option is not shown, discontinue and re-order from Quick Search* Active Atorvastatin Calcium 10 MG 1 tab(s) orally once a day (at bedtime) Active Farxiga 10 MG 1 tab(s) orally once a day Active Minocycline HCl 50 MG 1 cap(s) orally 2 times a day Active Mirtazapine 15 MG 1 tab(s) orally once a day (at bedtime) Active Citalopram Hydrobromide 40 MG 1 tab(s) orally once a day Active Encounters Encounter Location Date Provider Diagnosis [facility] [address] [place], [place] [id number] 01/04/2025 Provider Migration Hypertensive chronic kidney disease w stg 1-4/unsp chr kdny I12.9 Assessments Encounter Date Diagnosis (ICD Code) Assessment Notes Treatment Notes Treatment Clinical Notes Section Notes 01/04/2025 Hypertensive chronic kidney disease w stg 1-4/unsp chr kdny (ICD-10 - I12.9) Plan Of Treatment Medication Medication Name Sig Start Date Stop Date Notes Triamterene-HCTZ 75-50 MG 1 tab(s) orally once a day Metoprolol Tartrate 100 MG 1 tab(s) orally 2 times a day Aspirin 81 MG 1 TAB(S) ORALLY ONCE A DAY *Please review and p ick correct [facility]. If intended option is not shown, discontinue and re-order from Quick Search* Progress Notes * RYAN SOLARES LDOB:[birth year] (69 yo F)Acc No.[id number]:01/04/2025 Patient: Simone PASTOR RYAN Nini Provider: :1955 A ge:69 Y S ex:Female Date:01/04/2025 Phone: Address:[address] [place] [address], [id number] Pcp:SAVAGE PAK MD Subjective: * Chief Complaints: * 1 . Multum To Medispan Conversion Encounter. * Medical History: * Medications: T aking Atorvastatin Calcium 10 MG Tablet 1 tab(s) orally once a day (at bedtime) , Taking Citalopram Hydrobromide 40 MG Tablet 1 tab(s) orally once a day , Taking Farxiga 10 MG Tablet 1 tab(s) orally once a day , Taking metFORMIN HCl 500 MG Tablet 2 tab(s) orally daily , Taking Minocycline HCl 50 MG Capsule 1 cap(s) orally 2 times a day , Taking Mirtazapine 15 MG Tablet 1 tab(s) orally once a day (at bedtime) , Taking Trulicity 1.5 MG/0.5 ML SOLUTION DIRECTED SUBCUTANEOUSLY ONCE A WEEK , Notes to Pharmacist: *Please review and pick correct strength-formulation from Medis[facility] options. If intended option is not shown, discontinue and re-order from Quick Search* * Allergies: m etFORMIN: diarrhea - Side Effects, Morphine: stomach upset - Side Effects. Objective: * Vitals: Assessment: * Assessment: 1. H ypertensive chronic kidney disease w stg 1-4/unsp chr kdny - I12.9 Plan: * Treatment: * * Sign off status: Completed true * Provider: Date: 0 01/04/2025 Generated for Yuki moffett/Ovidio/Demetrioitting on: 0 05/05/2025 11:40 PM CDT
--- OUTSIDE RECORDS SUMMARY | 2025-05-05 23:41 | XMS_ITS | Patient Health Record ---
Author Organization [facility] Address [address] [place], [place] [id number] Care Team Providers Care Juvenile Detention Officer Name Role Phone SAVAGE PAK MD Primary Care Provider Unavailabl Jillian Betancourt Unavailable [phone] Migration, Provider Unavailable Unavailable Allergies Allergen (clinical drug ingredient) Drug/Non Drug Allergy documented on EMR Reaction Allergy Type Onset Date Status morphine Morphine stomach upset Drug Allergy Act april metformin metFORMIN diarrhea Drug Allergy Active Reason For Referral No Information Medications Medication SIG (Take, Route, Frequency, Duration) Notes Start Date End Date Status Triamterene-HCTZ 75-50 MG 1 tab(s) orally once a day Active Trulicity 1.5 MG/0.5 ML DIRECTED SUBCUTANEOUSLY ONCE A WEEK *Please review and pick correct strength-formulati on from [employer] options. If intended option is not shown, discontinue and re-order from Quick Search* Active metFORMIN HCl 500 MG 2 tab(s) orally daily Active Atorvastatin Calcium 10 MG 1 tab(s) orally once a day (at bedtime) Active Farxiga 10 MG 1 tab(s) orally once a day Active Minocycline HCl 50 MG 1 cap(s) orally 2 times a day Active Mirtazapine 15 MG 1 tab(s) orally once a day (at bedtime) Active Citalopram Hydrobromide 40 MG 1 tab(s) orally once a day Active Metoprolol Tartrate 100 MG 1 tab(s) orally 2 times a day Active Aspirin 81 MG 1 TAB(S) ORALLY ONCE A DAY *Please review and pick correct strength-formulati on from [employer] options. If intended option is not shown, discontinue and re-order from Quick Search* Active Problems Problem Type SNOMED Code ICD Code Onset Dates Problem Status W/U Status Risk Notes Problem Chronic kidney disease stage 3 (148624621) Chronic kidney disease, stage 3 (moderate) (N18.3) Active confirmed Problem Chronic kidney disease due to hypertension (883191704510620 ) Hypertensive chronic kidney disease w stg 1-4/unsp chr kdny (I12.9) Active confirmed Encounters Encounter Location Date Provider Diagnosis [facility] [address] [place], [place] [id number] 01/04/2025 Provider Migration Hypertensive chronic kidney disease w stg 1-4/unsp chr kdny I12.9 Assessments Encounter Date Diagnosis (ICD Code) Assessment Notes Treatment Notes Treatment Clinical Notes Section Notes 01/04/2025 Hypertensive chronic kidney disease w stg 1-4/unsp chr kdny (ICD-10 - I12.9) Plan Of Treatment Pending Test Test Name Order Date renal sonogram 06/29/2016 Future Test Test Name Order Date CBC (H/H, RBC, INDICES,$WBC, PLT) 2015 URINALYSIS, COMPLETE 06/29/2016 URINE MICROALBUMIN/CREATININE RATIO, RAN DOM (W/CREAT;RATIO) 06/29/2016 RENAL FUNCTION PANEL$W/EGFR 06/29/2016 PTH, INTACT (WITHOUT$CALCIUM) 06/29/2016 URINE MICROALBUMIN/CREATININE RATIO, RAN DOM (W/CREAT;RATIO) 01/31/2017 RENAL FUNCTION PANEL$W/EGFR 01/31/2017 CBC (H/H, RBC, INDICES,$WBC, PLT) 2016 URINE MICROALBUMIN/CREATININE RATIO, RAN DOM (W/CREAT;RATIO) 07/21/2017 RENAL FUNCTION PANEL$W/EGFR 07/21/2017 PTH, INTACT (WITHOUT$CALCIUM) 07/21/2017 CBC (H/H, RBC, INDICES,$WBC, PLT) 2017 RENAL FUNCTION PANEL$W/EGFR 01/09/2018 URINE MICROALBUMIN/CREATININE RATIO, RAN DOM (W/CREAT;RATIO) 01/24/2019 RENAL FUNCTION PANEL$W/EGFR 01/24/2019 PTH, INTACT (WITHOUT$CALCIUM) 01/24/2019 CBC (H/H, RBC, INDICES, WBC, PLT) (REFL) 01/24/2019 URINE MICROALBUMIN/CREATININE RATIO, RAN DOM (W/CREAT;RATIO) 01/17/2020 RENAL FUNCTION PANEL$W/EGFR 01/17/2020 Insurance Providers Payer Name Payer Address Payer Phone Subscriber Number Group Number Insured Name Patient Relationship to Insured Coverage Start Date Coverage End Date [facility] [address] [place] [phone] [id number] SEDRICK SOLARES Self - patient is the insured Medical (General) History Medical History History ICD Code Chronic kidney disease Diabetes mellitus, onset 2016 Hypertension, onset approx 1999 Depression Breast cancer, 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
[2025-05-05 23:46] VITALS: BP 186/99; PULSE 62; RESP 23; TEMP 36.8; O2SAT 98; BMI 35.7
--- NOTE | 2025-05-05 23:51 | ECG_ITS ---
[facility] [place] [place] [facility] Date: 2025-05-05 Pat Name: Yvonne Batres Department: Room: Gender: Female Bulk Tank Driver: : 1955 Requested By: Derrick Hay Order Number: [id number] Weiss MD: Alfredito De Guzman M.D. Measurements Intervals [place] Rate: 68 P: 53 GA: 169 QRS: -21 QRSD: 80 T: 30 QT: 405 QTc: 431 Interpretive Statements SINUS RHYTHM LOW QRS VOLTAGE IN PRECORDIAL LEADS [QRS DEFLECTION < 1.0 mV IN CHEST LEADS] POSSIBLE ANTERIOR MYOCARDIAL INFARCTION , PROBABLY OLD [30 ms Q WAVE IN V3/V4, OR R < 0.2 mV IN V4] Compared to ECG 11/24/2022 17:37:53 NO SIGNIFICANT CHANGE Electronically Signed On 05-06-2025 13:34:56 CDT by Alfredito De Guzman M.D. [email or web address] [id number]
[2025-05-05 23:55] VITALS: BP 164/89; PULSE 62; RESP 17; O2SAT 97
--- NOTE | 2025-05-05 23:56 | XRR_ITS ---
PROCEDURE INFORMATION: Exam: XR Chest Exam date and time: 05/05/2025 11:56 PM Age: 69 years old Clinical indication: C/O palpitations TECHNIQUE: Imaging protocol: Radiologic exam of the chest. Views: 1 view. COMPARISON: CT angio chest PE protcl [id number] 11/24/2022 4:30 PM FINDINGS: Lungs: Unremarkable. No consolidation. Pleural spaces: Unremarkable. No pleural effusion. No pneumothorax. Heart/Mediastinum: The heart is stable in size. Bones/joints: Degenerative changes. No acute bony abnormality. XR/XR chest 1V portable [id number] IMPRESSION: No acute abnormality.
[2025-05-06 00:01] LABS: Hematocrit 40.3 % (36-47); Hemoglobin 13.40 g/dL (11.27-16.99); Mean Corpuscular HGB Conc 33.3 g/dL (30-55); Mean Corpuscular Hemoglobin 29.9 pg (27-33); Mean Corpuscular Volume 90.0 fl (85-98); Nucleated Red Blood Cells % 0 %; Platelet Count 212 10^3/cmm (157-399); Red Blood Count 4.48 10^6/uL (3.85-5.65); White Blood Count 6.03 10^3/uL (3.29-11.43)
--- NOTE | 2025-05-06 00:04 | W.ED.ARRPALP ---
HPI - Arrhythmia/Palpitations General: Chief Complaint: Arrhythmia/Palpitations Stated Complaint: Chest Feels Funny Time Seen by Provider: 05/05/25 23:51 History of Present Illness: Patient is a 69-year-old female who presents to the Emergency Department with complaints of palpitations and irregular heartbeat that began last night. She reports feeling like her heart was skipping and not being in a normal pattern, with symptoms being particularly worse last night when she went to bed. The patient has been monitoring her heart rhythm using the ECG function on her smartwatch throughout the day, which reportedly indicated atrial fibrillation. This prompted her visit to the ED. She denies associated chest pain, shortness of breath, diaphoresis, or lower extremity edema. The patient reports that her blood pressure is elevated at present but attributes this to being in the emergency setting. She denies recent illness, fever, or cough. The patient reports that the palpitations were occurring while getting ready for bed tonight, though she states she is not feeling the irregular rhythm during the examination. Related Data Home Medications ?Medication ?Instructions ?Recorded ?Confirmed acetaminophen 650 mg 650 mg PO Q8H PRN Pain 02/24/22 05/01/25 tablet,extended release (Tylenol Arthritis Pain) calcium citrate 250 mg PO TID 02/24/22 05/01/25 carboxymethylcellulose sodium 0.25 1 drp ophthalmic (eye) DAILY 02/24/22 05/01/25 % eye drops in a dropperette (TheraTears) multivitamin (Daily Multi-Vitamin 1 tab PO BID 02/24/22 05/01/25 tablet) vit C 250 mg-vit E 200 unit-zinc 1 tab PO BID 02/24/22 05/01/25 12.5 mg-pipe fitter soft copper 1 mg-lut-zeax chew tablet (ICaps AREDS2 (copper citrate)) vitamin B complex 1 tab PO DAILY 02/24/22 05/01/25 latanoprost 0.005 % eye drops 1 drp ophthalmic (eye) .night 08/10/23 05/01/25 Previous Rx's ?Medication ?Instructions ?Recorded mupirocin 2 % topical ointment 1 applic topical BID #15 grams 07/02/24 anastrozole 1 mg tablet 1 mg PO DAILY #30 tabs 09/20/24 sulfamethoxazole 800 1 tab PO BID #14 tabs 11/05/24 mg-trimethoprim 160 mg tablet (Bactrim DS) citalopram 20 mg tablet 20 mg PO DAILY #30 tabs 11/27/24 mirtazapine 15 mg tablet See Rx Instructions .Route 11/27/24 .COMPLEX #30 tabs omeprazole 40 mg capsule,delayed See Rx Instructions .Route 12/10/24 release .COMPLEX #90 caps Allergies Allergy/AdvReac Type Severity Reaction Status Date / Time morphine Allergy very sick Verified 05/05/25 23:52 and throw up Review of Systems Narrative: Constitutional: Denies fever, chills Cardiovascular: Positive for palpitations and irregular heartbeat. 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 Acne Depression Surgical History History of bunionectomy 1971 and 1974 History of tonsillectomy and adenoidectomy 1960 Status post left breast lumpectomy History of Achilles tendon repair History of colonoscopy History of gastric bypass H/O: hysterectomy History of total knee replacement Family History Father Clotting disorder CAD (coronary artery disease) Hyperlipidemia Stroke Mother Cancer Previous ovarian cancer Breast and bone cancer Other Chronic kidney disease (CKD) Diabetes Hypertension Psychiatric illness Denies family history of Dementia Suicide Anesthesia complication Bleeding disorder Lung disease Social History Smoking and tobacco/nicotine status: never used tobacco/nicotine Quit status (tobacco/nicotine): has quit using Year quit tobacco: 1960s Former quit date comment: tried during childhood, did not like Alcohol intake: current Alcohol intake frequency: holidays/special occasions only Physical Exam Const: COMMON NORMALS: no acute distress GENERAL APPEARANCE: cooperative; not ill appearing and not frail appearing HENMT: COMMON NORMALS: normocephalic, atraumatic and Normal external nose present HEAD & SCALP: normocephalic and atraumatic FACE & SINUS: normal facial exam and face symmetric NOSE: Normal external nose present Eye: COMMON NORMALS: Equal, round and reactive pupils present and EOMs intact bilaterally PUPIL: Yes Equal, round and reactive pupils present Neck/C-Spine: GENERAL: Yes trachea midline Chest: CHEST: Yes Symmetrical chest wall rise Resp: COMMON NORMALS: normal respiratory effort, No retractions, No use of accessory muscles and clear to auscultation bilaterally AUSCULTATION: clear to auscultation bilaterally Cardio: COMMON NORMALS: regular rate and regular rhythm RATE: regular rate RHYTHM: regular rhythm GI: COMMON NORMALS: Normal to inspection, nondistended, normoactive bowel sounds present Extremity: COMMON NORMALS: no pedal edema Neuro: KENNY COMA SCALE: document GCS findings [place] coma scale eye opening: Spontaneous Kenny coma scale verbal response: Orientated Kenny coma scale motor response: Obey commands [place] coma scale total score: 15 SENSORY EXAM: Yes extremities (intact) Psych: COMMON NORMALS: speech normal SPEECH: Yes normal speech Skin: COMMON NORMALS: no rashes or lesions noted GENERAL SKIN EXAM: no rashes or lesions noted Course Vital Signs: Vital signs: Vital Signs Temperature 98.3 F 05/05/25 23:46 Pulse Rate 60 05/06/25 02:31 Respiratory Rate 16 05/06/25 02:31 Blood Pressure 147/86 05/06/25 02:31 Pulse Oximetry 98 05/06/25 02:31 Oxygen Delivery Me thod Room Air 05/05/25 23:55 MDM - Arrhythmia/Palpitations Medical Decision Making Patient is resting comfortably. She has been in sinus rhythm on the monitor. No episodes of atrial fibrillation or tachycardia. Blood pressure is minimally elevated 147/86. A few episodes of bradycardia while sleeping, in the 50s. She is asymptomatic at this point. CBC and BMP are normal. Troponin is negative at 0 and 2 hours. TSH is mildly elevated at 8. BNP is normal. Chest x-ray is not remarkable. Patient's EKG shows a sinus rhythm with a normal axis. Normal intervals. Rate of 70. No ST wave changes she be discharged home. Will write a case management request for Holter monitor as an outpatient to follow-up with her PCP. She knows to return for any new or worsening symptoms. Lab Data 05/05/25 23:43 05/05/25 23:43 Radiology Impressions Chest X-Ray 05/05/25 23:56 IMPRESSION: No acute abnormality. Laboratory Results WBC 6.03 10^3/uL (3.29-11.43) 05/05/25 23:43 RBC 4.48 10^6/uL (3.85-5.65) 05/05/25 23:43 Hgb 13.40 g/dL (11.27-16.99) 05/05/25 23:43 Hct 40.3 % (36-47) 05/05/25 23:43 MCV 90.0 fl (85-98) 05/05/25 23:43 MCH 29.9 pg (27-33) 05/05/25 23:43 MCHC 33.3 g/dL (30-55) 05/05/25 23:43 RDW 11.8 % (12.1-15.1) L 05/05/25 23:43 Plt Count 212 10^3/cmm (157-399) 05/05/25 23:43 MPV 9.8 fL (7.4-10.4) 05/05/25 23:43 Neut % (Auto) 48.8 % 05/05/25 23:43 Lymph % (Auto) 36.7 % 05/05/25 23:43 [place] % (Auto) 8.1 % 05/05/25 23:43 Eos % (Auto) 4.6 % 05/05/25 23:43 Baso % (Auto) 1.5 % 05/05/25 23:43 Neut # (Auto) 2.94 10^3/uL (1.8-7.7) 05/05/25 23:43 Lymph # (Auto) 2.2 10^3/uL (0.8-4.8) 05/05/25 23:43 [place] # (Auto) 0.5 10^3/uL (0.2-0.9) 05/05/25 23:43 Eos # (Auto) 0.3 10^3/uL (0.0-0.8) 05/05/25 23:43 Baso # (Auto) 0.1 10^3/uL (0.0-0.1) 05/05/25 23:43 Nucleated RBC % (auto) 0 % 05/05/25 23:43 Nucleated RBCs # 0.0 /100WBC 05/05/25 23:43 PT 11.30 SECONDS (12.1-14.9) L 05/05/25 23:43 INR 0.77 (0.8-1.2) L 05/05/25 23:43 APTT 24.7 SECONDS (23.9-36.7) 05/05/25 23:43 Sodium 141 mmol/L (136-145) 05/05/25 23:43 Potassium 4.1 mmol/L (3.5-5.1) 05/05/25 23:43 Chloride 104 mmol/L (98-107) 05/05/25 23:43 Carbon Dioxide 26 mmol/L (22-29) 05/05/25 23:43 Anion Gap 15.1 (5-19) 05/05/25 23:43 BUN 22 mg/dL (8-23) 05/05/25 23:43 Creatinine 0.9 mg/dL (0.5-0.9) 05/05/25 23:43 GFR Calculation 62.5 mL/min (90-130) L 05/05/25 23:43 Glucose 108 mg/dL (65-115) 05/05/25 23:43 Calculated Osmolality 296 mOsm/kg (285-295) H 05/05/25 23:43 Calcium 9.5 mg/dL (8.5-10.5) 05/05/25 23:43 Magnesium 2.1 mg/dL (1.7-2.3) 05/05/25 23:43 Total Bilirubin 0.3 mg/dL (0.15-1.2) 05/05/25 23:43 AST 27 U/L (0-32) 05/05/25 23:43 ALT 20 U/L (0-33) 05/05/25 23:43 Alkaline Phosphatase 160 U/L (35-105) H 05/05/25 23:43 Creatine Kinase 38 U/L (26-192) 05/05/25 23:43 Troponin T Baseline 7 ng/L (0-10) 05/05/25 23:43 Troponin T 120 Minute 6.65 ng/L (0-10) 05/06/25 01:12 Delta Troponin T -0.35 ABS# (0-10) L 05/06/25 01:12 NT-Pro-B Natriuret Pep 114 pg/mL (0-125) 05/05/25 23:43 Total Protein 6.3 g/dL (6.6-8.7) L 05/05/25 23:43 Albumin 4.3 g/dL (3.5-5.2) 05/05/25 23:43 Globulin 2.0 g/dL (1.3-4.6) 05/05/25 23:43 TSH 7.99 uIU/mL (0.27-4.20) H 05/05/25 23:43 All radiology interpretation(s) finalized by discharge Discharge Plan Discharge Patient Disposition: Home Clinical Impression: Palpitations Condition: Stable Prescriptions: No Action multivitamin [Daily Multi-Vitamin] Tablet 1 tab PO BID ICaps AREDS2 (copper citrate) 250 mg-200 unit -12.5 mg-1 mg tablet,chewable 1 tab PO BID calcium citrate 250 mg calcium tablet 250 mg PO TID vitamin B complex Tablet 1 tab PO DAILY acetaminophen [Tylenol Arthritis Pain] 650 mg tablet extended release 650 mg PO Q8H PRN (Reason: Pain) TheraTears 0.25 % dropperette 1 drp ophthalmic (eye) DAILY latanoprost 0.005 % drops 1 drp ophthalmic (eye) .night Rx Instructions: 1 drop both eyes mupirocin 2 % ointment 1 applic topical BID Qty: 15 2RF sulfamethoxazole-trimethoprim [Bactrim DS] 800-160 mg tablet 1 tab PO BID Qty: 14 0RF anastrozole 1 mg tablet 1 mg PO DAILY Qty: 30 6RF citalopram 20 mg tablet 20 mg PO DAILY Qty: 30 6RF mirtazapine 15 mg tablet See Rx Instructions .ROUTE .COMPLEX Qty: 30 6RF Dose Instruction: TAKE 1 TABLET BY MOUTH ONCE DAILY AT NIGHT Rx Instructions: TAKE 1 TABLET BY MOUTH ONCE DAILY AT NIGHT omeprazole 40 mg capsule,delayed release(DR/EC) See Rx Instructions .ROUTE .COMPLEX Qty: 90 2RF Dose Instruction: Take 1 capsule by mouth in the morning Rx Instructions: Take 1 capsule by mouth in the morning Discharge Orders: Discharge ED (Routine); Ordered 05/06/25 Ordered By: Derrick Naranjo Referrals: Satnam Muro MD [Primary Care Provider, [facility]] - 1-3 days Patient Instructions: Heart Palpitations (ED), Opioid Safety, Pain Management, Patient Portal & Tona Instructions Activity Restrictions/Additional Instructions: Case management will contact you this week regarding setting up a Holter monitor as an outpatient. Follow-up with your doctor. Call Tuesday for an appointment this week. Return to the emergency room for worsening palpitations, development of chest discomfort, shortness of breath, vomiting, fever, any other concerning symptoms. Print Language: Sierra Leonean Coding Level of Care Code ED Diffuser Operator for Radha Trujillo
[2025-05-06 00:39] LABS: INR 0.77 (0.8-1.2); Partial Thromboplastin Time 24.7 SECONDS (23.9-36.7); Prothrombin Time 11.30 SECONDS (12.1-14.9)
[2025-05-06 00:46] LABS: Troponin(5th) Baseline 7 ng/L (0-10)
[2025-05-06 01:08] LABS: Alanine Aminotransferase 20 U/L (0-33); Albumin Level 4.3 g/dL (3.5-5.2); Alkaline Phosphatase 160 U/L (35-105); Anion Gap 15.1 (5-19); Aspartate Amino Transferase 27 U/L (0-32); Blood Urea Nitrogen 22 mg/dL (8-23); Calcium 9.5 mg/dL (8.5-10.5); Carbon Dioxide 26 mmol/L (22-29); Chloride 104 mmol/L (98-107); Creatinine Clr Calc Pharmacy 70.1019; Globulin 2.0 g/dL (1.3-4.6); Glucose 108 mg/dL (65-115); Magnesium 2.1 mg/dL (1.7-2.3); NT Pro B Type Natriuretic Pept 114 pg/mL (0-125); Osmolality Calculated 296 mOsm/kg (285-295); Potassium 4.1 mmol/L (3.5-5.1); Sodium 141 mmol/L (136-145); Thyroid Stimulating Hormone 7.99 uIU/mL (0.27-4.20); Total Protein 6.3 g/dL (6.6-8.7)
[2025-05-06 01:44] LABS: Troponin 5 2HR 6.65 ng/L (0-10)
[2025-05-06 01:47] LABS: Troponin 5 2HR Delta -0.35 ABS# (0-10)
[2025-05-06 02:31] VITALS: BP 147/86; PULSE 60; RESP 16; O2SAT 98
--- NOTE | 2025-05-06 09:11 | DCPLANNER ---
messaged heart care for er f/u
== END 2025-05-06 02:31 | disposition home or self-care (01) ==
PROVIDERS: Emergency Provider Emergency Medicine; PCP Family Medicine
DX: R00.2 Palpitations (principal); Z87.891 Personal history of nicotine dependence; N18.9 Chronic kidney disease, unspecified
CPT/HCPCS: 36415; 71045; 80053; 82550; 83735; 83880; 84443; 84484; 85025; 85610; 85730; 93005; 99285

== ENCOUNTER 2025-05-17 13:32 | Outpatient (RCR) | payer MEDICARE, SELFPAY | END 2025-06-04 23:59 | disposition home or self-care (01) | LOC: SPT 13:32 | PROVIDERS: PCP Family Medicine; Visit Provider Family Medicine | DX: M54.12 Radiculopathy, cervical region (principal) | CPT/HCPCS: 97110; 97161 ==

== ENCOUNTER 2025-06-03 14:53 | Outpatient (CLI) | payer MEDICARE, SELFPAY ==
--- NOTE | 2025-06-03 15:15 | MRR_ITS ---
PROCEDURE INFORMATION: Exam: MR Right Lower Extremity Joint Without Contrast; Ankle Exam date and time: 06/03/2025 3:26 PM Age: 70 years old Clinical indication: Right; Pain in achilles tendon posterior ankle, no trauma. ; Additional info: Achilles tendon tear TECHNIQUE: Imaging protocol: Magnetic resonance imaging of the right lower extremity without contrast. Exam focused on the ankle. COMPARISON: NM bone scan whole body* [id number] 09/02/2023 8:45 AM FINDINGS: Bones/joints: Tibiotalar and subtalar articulations are intact without evidence of acute fracture or malalignment. Moderate tibiotalar osteoarthritis with anterior tibial marginal osteophyte and small joint effusion. Small posterior subtalar joint effusion. There is evidence of cortical avulsive injuries of the inferior tips of the lateral and medial malleoli with mild bony spurring. There is a 6 mm ossicle along the plantar aspect of lateral cuneiform compatible with sequela of remote avulsive injury (image 27 of series 901). No evidence of osteonecrosis or inflammatory arthropathy. There is focal marrow edema of the posterosuperior calcaneus, likely reactive related to retrocalcaneal bursitis. LIGAMENTS: Distal tibiofibular syndesmosis: Intact. There is thickening of the anterior distal tib-fib syndesmotic ligament and mild bony spurring of the fibular attachment compatible with sequela of remote sprain/avulsive injury. Anterior talofibular ligament: Intact. Posterior talofibular ligament: Intact. Calcaneofibular ligament: Chronic sprain/partial tear of the calcaneofibular ligament, particularly the distal fibers near the calcaneal attachment. Deltoid ligament complex: Intact. TENDONS: Flexor tendons of foot: Intact. Tibialis posterior tendon: Intact. Peroneal tendons: Question intrasubstance tear of the distal peroneus brevis tendon. No evidence of high-grade or full-thickness tear. Suspected chronic partial-thickness tear of the distal peroneus longus tendon along the plantar aspect of the midfoot/forefoot. Extensor tendons of foot: Intact. Tibialis anterior tendon: Intact. Achilles tendon: Intact. There is mild tendinosis of the Achilles tendon with insertional enthesophyte and severe retrocalcaneal bursitis. There is reactive marrow edema in the posterosuperior calcaneus. There may be a minor interstitial tear of the distal insertional fibers (image 13 of series 701). Plantar fascia: Plantar fascia is intact. Mild degeneration of the central cord of the plantar fascia with small plantar calcaneal spur. No significant fascial edema or marrow edema. Soft tissues: Soft tissue edema without fluid collection or hematoma. 10 mL ganglion cyst along the lateral aspect of the sinus tarsi is noted. MR/MR ankle RT wo con* [id number] IMPRESSION: 1. Achilles insertional tendinosis with severe retrocalcaneal bursitis and reactive marrow edema of the calcaneus. 2. Suspected chronic partial-thickness tear of the distal peroneus longus tendon. 3. Subcentimeter ossicle along the plantar aspect of the lateral cuneiform compatible with sequela of cortical avulsive injury. 4. Prior supination injury with evidence of prior syndesmotic sprain and partial tear of the calcaneofibular ligament.
== END 2025-06-03 14:54 | disposition home or self-care (01) ==
LOC: RAD 14:57
PROVIDERS: PCP Family Medicine; Visit Provider Podiatrist Foot & Ankle Surgery
DX: S86.011A Strain of right Achilles tendon, initial encounter (principal); X58.XXXA Exposure to other specified factors, initial encounter
CPT/HCPCS: 73721

== ENCOUNTER 2025-06-05 05:00 | Outpatient (RCR) | payer MEDICARE, SELFPAY | END 2025-07-03 10:45 | disposition home or self-care (01) | LOC: SPT 05:00 | PROVIDERS: Visit Provider Family Medicine | DX: M54.12 Radiculopathy, cervical region (principal) | CPT/HCPCS: 97110 ==

== ENCOUNTER 2025-06-05 06:30 | Outpatient (RCR) | payer MEDICARE, SELFPAY | END 2025-07-05 23:59 | disposition home or self-care (01) | LOC: SPT 06:30 | PROVIDERS: Visit Provider Podiatrist Foot & Ankle Surgery | DX: M67.88 Other specified disorders of synovium and tendon, other site (principal) | CPT/HCPCS: 97161 ==

== ENCOUNTER → 2025-06-18 09:43 | Outpatient (BNVA) | payer MEDICARE, SELFPAY | PROVIDERS: PCP Family Medicine; Visit Provider Podiatrist Foot & Ankle Surgery | DX: M67.88 Other specified disorders of synovium and tendon, other site (principal); S86.011A Strain of right Achilles tendon, initial encounter; M77.31 Calcaneal spur, right foot; X58.XXXA Exposure to other specified factors, initial encounter | CPT/HCPCS: 99214 ==

== ENCOUNTER 2025-07-05 15:20 | Oncology outpatient (recurring) (ONCR) | payer MEDICARE, SELFPAY ==
--- NOTE | 2025-07-05 15:15 | MR_ITS ---
WS: [id number] MRI CERVICAL SPINE NONCONTRAST TECHNIQUE: Sagittal T1, T2 and STIR imaging. Axial T2, gradient, and fiesta imaging. CLINICAL INFORMATION: Cervical radiculopathy. LEFT arm pain. COMPARISON: None. FINDINGS: Straightening of the normal cervical doses. Cord signal is normal. Mild disc bulging C4-C6. Slight anterolisthesis C7 on T1. C2-C3: Normal. C3-C4: Advanced LEFT facet arthropathy. Moderate LEFT bony foraminal narrowing. Spinal canal is patent. C4-C5: Advanced RIGHT facet arthropathy. Moderate RIGHT bony foraminal narrowing. C5-C6: Mild disc bulging with a tiny annular fissure. Mild facet arthropathy. Mild LEFT bony foraminal narrowing. Mild facet arthropathy. C6-C7: Disc osteophyte protrusion with mild central canal stenosis. Mild to moderate LEFT bony foraminal narrowing. C7-T1: Grade 1 anterolisthesis C7 on T1. Mild to moderate LEFT bony foraminal narrowing. Spinal canal and RIGHT foramen are patent. Visualized brain stem structures: Normal. Prevertebral soft tissues: Normal. MR/MR cervical spin wo con* [id number] IMPRESSION: 1. Straightening of the normal cervical lordosis. Cord signal is normal. 2. Shallow central protrusion C6-7 with mild central canal stenosis. 3. Moderate LEFT C3-C4 and RIGHT C4-C5 bony foraminal narrowing with advanced LEFT C3-4 and advanced RIGHT C4-5 facet arthropathy. 4. Mild to moderate LEFT C6-7 and LEFT C7-T1 bony foraminal narrowing.
== END 2025-07-05 23:59 | disposition home or self-care (01) ==
LOC: ONCMED 15:23
PROVIDERS: PCP Family Medicine; Visit Provider Internal Medicine
DX: C50.912 Malignant neoplasm of unspecified site of left female breast (principal); Z17.0 Estrogen receptor positive status [ER+]; Z79.811 Long term (current) use of aromatase inhibitors; Z79.899 Other long term (current) drug therapy; Z87.891 Personal history of nicotine dependence; M54.12 Radiculopathy, cervical region
CPT/HCPCS: 72141

== ENCOUNTER 2025-07-06 05:00 | Outpatient (RCR) | payer MEDICARE, SELFPAY | END 2025-08-04 23:59 | disposition home or self-care (01) | LOC: SPT 05:00 | PROVIDERS: PCP Family Medicine; Visit Provider Podiatrist Foot & Ankle Surgery | DX: M67.88 Other specified disorders of synovium and tendon, other site (principal) | CPT/HCPCS: 97035; 97110 ==

== ENCOUNTER 2025-08-05 05:00 | Outpatient (RCR) | payer MEDICARE, SELFPAY | END 2025-09-04 23:59 | disposition home or self-care (01) | LOC: SPT 05:00 | PROVIDERS: PCP Family Medicine; Visit Provider Podiatrist Foot & Ankle Surgery | DX: M67.88 Other specified disorders of synovium and tendon, other site (principal) | CPT/HCPCS: 97110 ==

== ENCOUNTER → 2025-08-06 13:46 | Outpatient (BNVA) | payer MEDICARE, SELFPAY | PROVIDERS: PCP Family Medicine; Visit Provider Podiatrist Foot & Ankle Surgery | DX: S86.011A Strain of right Achilles tendon, initial encounter (principal); M77.31 Calcaneal spur, right foot; X58.XXXA Exposure to other specified factors, initial encounter | CPT/HCPCS: 99214 ==

== ENCOUNTER 2025-08-19 07:55 | Day surgery (SDC) | payer MEDICARE, SELFPAY ==
[2025-08-19] VITALS (11 sets, daily range): BP systolic 121–167; BP diastolic 60–92; PULSE 56–72; RESP 12–18; TEMP 36.1–36.4; O2SAT 91–98; BMI 35.7
--- NOTE | 2025-08-19 08:38 | ANES.PREANE2 ---
Pre-Anesthetic Assessment Height/Weight: Height 5 ft 5 in Weight 215 lb Temp Pulse Resp BP Pulse Ox O2 Del Method 97 F L 56 L 18 121/69 97 Room Air 08/19/25 08:06 08/19/25 08:06 08/19/25 08:06 08/19/25 08:06 08/19/25 08:06 08/19/25 08:12 Preop Diagnosis: right achilles tendinopathy Operation Date: 08/19/25 09:20 Proposed Procedures p Secondary RIGHT Achilles Tendon Repair(Right) - Khoi Terry DPM s RIGHT Exostectomy Calcaneus(Right) - Khoi Terry DPM Was Beta Twan taken within 24 hours: Yes Was Clonidine taken within 24 hours: N/A Last intake: Intake Last Liquid Date 08/18/25 Last Liquid Time 22:00 Last Solid Date 08/18/25 Last Solid Time 20:00 Social No alcohol and No tobacco Exam alert, oriented x 3, clear to auscultation bilaterally and regular rate & rhythm Airway Submandibular: within normal limits Cervical ROM: within normal limits Mallampati: Class III Dentition: full Anesthetic Plan ASA status: 3 Anesthesia: General and Regional (specify below) Other: No prior issues with anesthesia NPO since yesterday evening History of hypertension on atenolol LJ on CPAP GERD, controlled with omeprazole S/p gastric bypass 2018 Prior ductal carcinoma of the breast Patient was recently seen by cardiology for heart palpitations and placed on Holter monitor in May. Report showing baseline sinus rhythm with occasional ectopic ventricular beats. Patient states that her palpitations have improved Prior labs reviewed acceptable for procedure Plan for general anesthesia with peripheral nerve block Medications/Allergies Home Medications ?Medication ?Instructions ?Recorded ?Confirmed ?Last Taken ?Type acetaminophen 650 mg 650 mg PO Q8H PRN Pain 02/24/22 08/16/25 08/16/25 History tablet,extended release (Tylenol Arthritis Pain) calcium citrate 250 mg PO TID 02/24/22 08/16/25 08/16/25 History carboxymethylcellulose sodium 0.25 1 drp ophthalmic (eye) DAILY 02/24/22 08/16/25 08/16/25 History % eye drops in a dropperette (TheraTears) multivitamin (Daily Multi-Vitamin 1 tab PO BID 02/24/22 08/16/25 08/16/25 History tablet) vit C 250 mg-vit E 200 unit-zinc 1 tab PO BID 02/24/22 08/16/25 08/16/25 History 12.5 mg-gyroscopic instrument mechanic 1 mg-lut-zeax chew tablet (ICaps AREDS2 (copper citrate)) vitamin B complex 1 tab PO DAILY 02/24/22 08/16/25 08/16/25 History latanoprost 0.005 % eye drops 1 drp ophthalmic (eye) .night 08/10/23 08/16/25 08/16/25 History mupirocin 2 % topical ointment 1 applic topical BID #15 grams 07/02/24 08/16/25 08/16/25 Rx sertraline 50 mg tablet 50 mg PO DAILY #30 tabs 06/06/25 08/16/25 08/18/25 Rx atenolol 25 mg tablet 25 mg PO DAILY #30 tabs 06/25/25 08/16/25 08/19/25 07:00 Rx anastrozole 1 mg tablet 1 mg PO DAILY #30 tabs 07/01/25 08/16/25 08/18/25 Rx mirtazapine 15 mg tablet 15 mg PO BEDTIME 08/16/25 08/16/25 08/18/25 History omeprazole 40 mg capsule,delayed 40 mg PO DAILY 08/16/25 08/16/25 08/19/25 07:00 History release Allergies Allergy/AdvReac Type Severity Reaction Status Date / Time morphine Allergy very sick Verified 08/16/25 12:32 and throw up Current Medications Generic Name Dose Route Start Last Admin Trade Name Freq PRN Reason Stop Dose Admin Sodium Chloride 1,000 mls @ 30 mls/hr 08/19/25 08:00 08/19/25 08:25 Sodium Chloride 0.9% IV 08/20/25 07:59 30 mls/hr .Q24H ZEFERINO Administration PFSH Anesthesia Medical History Presence of other vascular implants and grafts Chronic kidney disease Trigger finger of right hand Bunion, left foot Bunion of right foot 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 Acne Depression Surgical History History of bunionectomy 1971 and 1974 History of tonsillectomy and adenoidectomy 1960 Status post left breast lumpectomy History of Achilles tendon repair History of colonoscopy History of gastric bypass H/O: hysterectomy History of total knee replacement Family History Father Clotting disorder CAD (coronary artery disease) Hyperlipidemia Stroke Mother Cancer Previous ovarian cancer Breast and bone cancer Other Chronic kidney disease (CKD) Diabetes Hypertension Psychiatric illness Denies family history of Dementia Suicide Anesthesia complication Bleeding disorder Lung disease Social History Smoking and tobacco/nicotine status: never used tobacco/nicotine Quit status (tobacco/nicotine): has quit using Year quit tobacco: 1960s Former quit date comment: tried during childhood, did not like Alcohol intake: current Alcohol intake frequency: holidays/special occasions only Data Anesthesia Cardiac Studies: Holter Monitor 05/14/25
--- NOTE | 2025-08-19 08:59 | P.HPUD_ITS ---
Surgery/Procedure H&P Update DATE OF PROCEDURE: August 19, 2025 DATE H&P PERFORMED: 08/06/25 H&P UPDATE INFORMATION: I have reviewed H&P completed within last 30 days, I have examined patient prior to procedure, No changes to prior documentation, H&P is in [facility] EMR on date indicated and Risks and benefits of the procedure reviewed PREOP DIAGNOSIS: right achilles tendinopathy PLANNED PROCEDURE: Operation Date: 08/19/25 09:20 Proposed Procedures p Secondary RIGHT Achilles Tendon Repair(Right) - Khoi Terry DPM s RIGHT Exostectomy Calcaneus(Right) - Khoi Terry DPM
[2025-08-19] MEDS: ceFAZolin 2,000 mg SDV 2000 MG IVP (09:14)
--- NOTE | 2025-08-19 10:47 | ANES.PROC ---
Anesthesia Procedures Procedure/Date: 08/19/25 Right popliteal peripheral nerve block for postoperative pain control Nerve Block ^: Nerve Block 1: Main Anesthesia: general anesthesia Time Out Performed: Yes Consent: requested by attending/covering physician and from patient Laterality: Right Nerve block location: popliteal Anesthesia monitors applied: pulse oximetry, EKG, BP cuff and oxygen Nerve block position: supine Anesthetic Used: ropivicaine 0.5% Amount of anesthesia used (mL): 30 Ultrasound used to: recognize landmarks Nerve Stimulator Used?: Yes Interscalene/Femoral BLK: other needle (pjunk 4inch) Injection: neg aspiration of heme Patient Tolerated Procedure: well Complications: none Additional Comments: decadron 4mg added to block
--- NOTE | 2025-08-19 11:14 | W.PM.BPON ---
Date of procedure: 08/19/2025 Surgeon name: Milly CarlsonPAlondra Associate Professor Plant Pathology(s) name(s): See intraoperative documentation Procedure(s) performed: Right calcaneal exostectomy, repair secondary of Achilles tendon Description of findings: Large exostosis posterior calcaneus Estimated blood loss: 5 cc Tourniquet time: 60 minutes Specimen(s) removed: Bone right heel Post-operative diagnosis: Same
--- NOTE | 2025-08-19 13:29 | ANE.PACU2 ---
Inpatient post-anesthesia follow up: Airway intact: Yes Vital signs: Temperature 97 F Pulse Rate 64 Respiratory Rate 18 Blood Pressure 141/83 Pulse Oximetry 95 Oxygen Delivery Me thod Room Air Oxygen Flow Rate 6 Fraction of Inspir ed Oxygen Hydration adequate: Yes Nausea and vomiting: No Pain level: 1 Mental status: Baseline
--- NOTE | 2025-08-19 18:24 | P.OP_ITS ---
Operative Report Date of procedure: August 19, 2025 Surgeon: Khoi Terry DPM Procedure: Date of procedure: 08/19/2025 Pre-op diagnosis: Right calcaneal exostosis, Achilles tendon tear Post-op diagnosis: Same Post-op findings: Large calcaneal exostosis, degenerative Achilles tendon at insertion consistent with tear Procedure done: 1. Secondary repair right Achilles tendon CPT 17394 2. Right calcaneus exostectomy CPT 27122 Implants: Knotless speed bridge anchor from [employer] Specimens removed: Bone right calcaneus sent to pathology Surgeon: Dr. Khoi Terry DPM Building Certifier: See intraoperative documentation Estimated blood loss: 5 cc Tourniquet time: 60 minutes Complications: None Patient is a 70-year-old female that has a history of right heel pain, chronic stemming from retrocalcaneal exostosis and distal Achilles tendon tear. The patient has had the aforementioned chief complaint for some time. Conservative treatment measures have been attempted and the patient has opted for surgical intervention at this time. A lengthy discussion regarding the procedure, including risks and complications has been had with the patient and is noted in the recent clinic note. Written and verbal consent have been obtained. All patient questions have been answered to the patient?s satisfaction. No written or verbal guarantees have been given or implied. The patient has been NPO since midnight. The history has been reviewed and the history and physical is current. The signed consent was confirmed and placed in the patient chart. Patient imaging has been reviewed and is consistent with the diagnosis. Under mild sedation, the patient was brought into the operating room and placed on the table in the prone position. IV antibiotics were given by the anesthesia team as preoperative surgical prophylaxis. General sedation was then performed by the anesthesiateam. Popliteal block was performed by the anesthesia department. A pneumatic tourniquet was then placed about the right thigh. The operative extremity was then prepped and draped in the usual fashion. The extremity was then elevated and exsanguinated before the tourniquet was inflated to 325 mmHg. After inflation, the following procedure was then perfor med. Attention is directed to the posterior aspect of the right heel where a 5 cm incision was made using a #15 blade. Dissection was carried down through subcutaneous and superficial fascia to the level of the peritenon. Peritenon was incised to expose the underlying Achilles tendon which was split longitudinally before being opened up in inverted T fashion and reflected from posterior calcaneus to expose the underlying bone spur. The distal portion of the Achilles tendon was noted to have thickening and substance changes consistent with chronic tear. Osteotome and mallet were then used to this point to remove posterior calcaneal spur. This was visualized on C arm. Central darkened discolored area of hardened bone like substance intratendinous was excised and passed from the operative field to be sent to specimen for evaluation. Attention was then directed to the Achilles tendon. Nonviable portion of tendon was excised using a #15 blade passed from the operative field. Remaining tendon appeared healthy and viable. The Achilles tendon was then anchored to the calcaneus using [employer] knotless speed bridge system per manufacture protocol. Good tension on the Achilles tendon was noted. Using 2-0 Vicryl the Achilles tendon was then repaired. The site was irrigated with copious amounts of sterile saline before attention was directed to closure. Peritenon was closed with 2-0 Vicryl followed by subcuticular closure with 3-0 Vicryl and skin closure with 3-0 nylon in horizontal mattress fashion. The tourniquet was let down good hyperemic response was noted to all digits of the right foot. The incision was dressed with Xeroform, 4 x 4 gauze, Kerlix, Jack. Patient was placed in a cam boot. The patient tolerated the procedure and anesthesia well and without compli cation. The patient was transported from the operating room to the recovery room with vital signs stable and vascular status intact to all digits of the right foot. The patient was given both written and verbal instructions to remain [ ] to the operative extremity, to keep dressings/splint clean, dry and intact and to take pain medication as directed. The patient will follow-up in the outpatient setting at their scheduled appointment. The patient was discharged with my personal number and was instructed to call if any questions or issues should arise. They were discharged home once anesthesia criteria was met.
== END 2025-08-19 13:29 | disposition home or self-care (01) ==
PROVIDERS: PCP Family Medicine; Visit Provider Podiatrist Foot & Ankle Surgery
PROC: (CPT 27650; principal; 2025-08-19 09:10)
PROC: (CPT 28288; 2025-08-19 09:10)
DX: M89.9 Disorder of bone, unspecified (principal); S86.011A Strain of right Achilles tendon, initial encounter; X58.XXXA Exposure to other specified factors, initial encounter; I12.9 Hypertensive chronic kidney disease with stage 1 through stage 4 chronic kidney disease, or unspecified chronic kidney disease; N18.9 Chronic kidney disease, unspecified; G47.33 Obstructive sleep apnea (adult) (pediatric); Z99.89 Dependence on other enabling machines and devices; K21.9 Gastro-esophageal reflux disease without esophagitis; Z98.84 Bariatric surgery status; Z86.000 Personal history of in-situ neoplasm of breast; F32.A Depression, unspecified; Z86.018 Personal history of other benign neoplasm; Z80.41 Family history of malignant neoplasm of ovary; Z80.3 Family history of malignant neoplasm of breast; Z80.8 Family history of malignant neoplasm of other organs or systems; Z82.49 Family history of ischemic heart disease and other diseases of the circulatory system; Z84.19 Family history of other disorders of kidney and ureter; Z87.891 Personal history of nicotine dependence; Z95.828 Presence of other vascular implants and grafts
CPT/HCPCS: 27654; 28118; 64445; 88307; 88311; C1713; J0690; J1100; J1885; J2405; J2704; J2710; J3010; J3490; J7030; J9999

== ENCOUNTER 2025-08-21 12:24 | Oncology outpatient (recurring) (ONCR) | payer MEDICARE, SELFPAY ==
[2025-08-21 12:50] LABS: Hematocrit 36.4 % (36-47); Hemoglobin 11.60 g/dL (11.27-16.99); Mean Corpuscular HGB Conc 31.9 g/dL (30-55); Mean Corpuscular Hemoglobin 29.6 pg (27-33); Mean Corpuscular Volume 92.9 fl (85-98); Nucleated Red Blood Cells % 0 %; Platelet Count 196 10^3/cmm (157-399); Red Blood Count 3.92 10^6/uL (3.85-5.65); White Blood Count 6.99 10^3/uL (3.29-11.43)
[2025-08-21 13:15] LABS: Alanine Aminotransferase 11 U/L (0-33); Albumin Level 4.1 g/dL (3.5-5.2); Alkaline Phosphatase 105 U/L (35-105); Anion Gap 14.8 (5-19); Aspartate Amino Transferase 20 U/L (0-32); Blood Urea Nitrogen 22 mg/dL (8-23); Calcium 9.5 mg/dL (8.5-10.5); Carbon Dioxide 27 mmol/L (22-29); Chloride 105 mmol/L (98-107); Globulin 1.6 g/dL (1.3-4.6); Glucose 91 mg/dL (65-115); Osmolality Calculated 299 mOsm/kg (285-295); Potassium 3.8 mmol/L (3.5-5.1); Sodium 143 mmol/L (136-145); Thyroid Stimulating Hormone 3.36 uIU/mL (0.27-4.20); Total Protein 5.7 g/dL (6.6-8.7)
== END 2025-09-04 23:59 | disposition home or self-care (01) ==
PROVIDERS: Nurse Practitioner; PCP Family Medicine; Visit Provider Internal Medicine
DX: C50.912 Malignant neoplasm of unspecified site of left female breast (principal); Z17.0 Estrogen receptor positive status [ER+]; Z79.899 Other long term (current) drug therapy; R03.0 Elevated blood-pressure reading, without diagnosis of hypertension; Z79.811 Long term (current) use of aromatase inhibitors; Z92.3 Personal history of irradiation; R00.2 Palpitations
CPT/HCPCS: 80053; 84443; 85025; 99213

== ENCOUNTER → 2025-09-02 14:35 | Outpatient (BNVA) | payer MEDICARE, SELFPAY | PROVIDERS: PCP Family Medicine; Visit Provider Podiatrist Foot & Ankle Surgery | DX: S86.011A Strain of right Achilles tendon, initial encounter (principal); M77.31 Calcaneal spur, right foot; X58.XXXA Exposure to other specified factors, initial encounter | CPT/HCPCS: 99024 ==

== ENCOUNTER → 2025-09-03 14:03 | Outpatient (BNVA) | payer MEDICARE, SELFPAY | PROVIDERS: PCP Family Medicine; Visit Provider Orthopaedic Surgery | DX: M54.12 Radiculopathy, cervical region (principal); M54.2 Cervicalgia; M79.602 Pain in left arm | CPT/HCPCS: 72050; 99203 ==